=== PATIENT | female | born 1955 | race American Indian/Alaskan Native ===

== ENCOUNTER 2016-09-13 06:04 | Inpatient (IN) | payer MEDICAID ==
[2016-09-13] MEDS ORDERED: Albuterol-Ipratrop 3 mg / 0.5 (3 ml) UD ONE (06:47)
[2016-09-13] MEDS: Albuterol-Ipratrop 3 mg / 0.5 (3 ml) UD IH SCH (07:01)
--- NOTE | 2016-09-13 07:37 | C.PDOC ---
History Of Present Illness 61-year-old female, PMHx includes Asthma, Depression, Diverticulitis, Gastritis , and Hypertension, presents to the emergency department with complaints of five -day duration of a productive cough, that is associated with occasional hemoptysis. Patient has a permanent tracheostomy and no suction machine x1 year. Patient is using a straw to self-suction through hole. Initially, patient notes scant blood five days ago; States "I think I hit something" and is now with increased bright red blood output, that is described as intermittent clots , followed by thick yellow mucus. Patient is still a smoker. Time Seen by Provider: 09/13/16 07:23 Chief Complaint (Nursing): High Blood Pressure History Per: Patient History/Exam Limitations: no limitations Onset/Duration Of Symptoms: Days Current Symptoms Are (Timing): Still Present Past Medical History Reviewed: Historical Data, Nursing Documentation, Vital Signs Vital Signs: Last Vital Signs Temp 98.4 F 09/13/16 08:14 Pulse 108 H 09/13/16 08:14 Resp 20 09/13/16 08:14 BP 151/92 H 09/13/16 08:14 Pulse Ox 97 09/13/16 09:35 - Medical History PMH: Asthma, Depression, Diverticulitis, Gastritis, HTN Denies: Diabetes, Hepatitis, HIV, Seizures, Sexually Transmitted Disease Family History: States: No Known Family Hx - Social History Hx Tobacco Use: Yes Hx Alcohol Use: Yes Hx Substance Use: No - Immunization History Hx Tetanus Toxoid Vaccination: No Hx Influenza Vaccination: No Hx Pneumococcal Vaccination: No Review Of Systems Except As Marked, All Systems Reviewed And Found Negative. Constitutional: Negative for: Fever Cardiovascular: Negative for: Chest Pain, Palpitations Respiratory: Positive for: Cough, Hemoptysis, Sputum Gastrointestinal: Negative for: Vomiting Musculoskeletal: Negative for: Back Pain Skin: Negative for: Rash Neurological: Negative for: Weakness, Numbness, Headache, Dizziness Physical Exam - Physical Exam Appears: Non-toxic, No Acute Distress Skin: Warm, Dry, No Rash Head: Atraumatic, Normacephalic Eye(s): bilateral: Normal Inspection, PERRL Oral Mucosa: Moist Lips: Normal Appearing Neck: Normal ROM Chest: Symmetrical Cardiovascular: Rhythm Regular Respiratory: Normal Breath Sounds, No Accessory Muscle Use, Other (s/p nebulizer treatment) Extremity: Normal ROM Neurological/Psych: Oriented x3 ED Course And Treatment - Laboratory Results Result Diagrams: 09/13/16 09:06 09/13/16 09:06 ECG: Interpreted By Me ECG Rhythm: Sinus Rhythm ECG Interpretation: Normal Rate From EC O2 Sat by Pulse Oximetry: 97 Progress - Re-Evaluation Re-evaluation Note: 09/13/16 08:46 LABS FROM [facility] REVIEWED. PS HAS BEEN DX ANEMIA "FOR A WHILE". UNK CAUSE. DENIES SOB/JACKMAN THAT IS "ANY DIFFERENT THAN USUAL". DENIES ABD PAIN, OTHER GI BLEED HX. 09/13/16 08:58 D/W DR Erasto ANTHONY C/F PMD STATES DOES NOT ADMIT PTS W MEDICAID. ADMIT TO HOSPITAL 09/13/16 09:02 D/W DR WHITE AWARE OF ER FINDINGS WILL ADMIT. DEFER TRANSFUSION UNTIL HIS EVAL - Data Reviewed Data Reviewed: Lab, Diagnostic imaging, Old records - Continuity of Care Discussed patient case with:: Patient, Covering for PMD Disposition Counseled Patient/Family Regarding: Studies Performed, Diagnosis - Disposition Disposition: HOSPITALIZED Disposition Time: 09:03 Condition: STABLE - POA Present On Arrival: None - Clinical Impression Clinical Impression: Pneumonia, Anemia - Scribe Statement The provider has reviewed the documentation as recorded by the Daianaibama Cid All medical record entries made by the Daianaibe were at my direction and personally dictated by me. I have reviewed the chart and agree that the record accurately reflects my personal performance of the history, physical exam, medical decision making, and the department course for this patient. I have also personally directed, reviewed, and agree with the discharge instructions and disposition. Decision To Admit - Pt Status Changed To: Hospital Disposition Of: Inpatient - Admit Certification Admit to Inpatient:: After my assessment, the patient will require hospitalization for at least two midnights. This is because of the severity of symptoms shown, intensity of services needed, and/or the medical risk in this patient being treated as an outpatient. - InPatient: Physician Admission Certification: I certify that this patient requires 2 or more midnights of care for the following reason:: SEE NOTE - . Bed Request Type: Regular Admitting Physician: Nathan White Patient Diagnosis: Pneumonia, Anemia PROCEDURES - EJ/Peripheral Line Consent Obtained: verbal consent Time Out Performed: Yes Skin Cleansed in Sterile Fashion: Yes Size: 22 IV Secured and Dressing Applied: No Patient Tolerated Procedure: No complications Additional comments: UNABLE TO OBTAIN ACCESS S/P B/L EJ ATTEMPTS.
[2016-09-13] MEDS ORDERED: Azithromycin 500mg/250ML NS 500 MG/250 ML BAG IV STA (08:46)
[2016-09-13 09:12] LABS: HEMATOCRIT 24.7 % (34.0-47.0); MEAN PLATELET VOLUME 7.5 fL (7.2-11.7)
[2016-09-13 09:21] LABS: MEAN CORPUSCULAR HGB CONC 28.7 g/dL (33.0-37.0); RED CELL DISTRIBUTION WIDTH 21.7 % (11.5-14.5); WHITE BLOOD COUNT 4.1 K/uL (4.8-10.8)
[2016-09-13 09:27] LABS: CHLORIDE 108 mmol/L (98-107); POTASSIUM 3.6 mmol/L (3.6-5.2); SODIUM 144 mmol/L (132-148)
[2016-09-13 09:29] LABS: AST/SGOT 38 U/L (14-36); BILIRUBIN,TOTAL 0.7 mg/dL (0.2-1.3); CARBON DIOXIDE 21 mmol/L (22-30); GFR AFRICAN-AMERICAN > 60
[2016-09-13 09:30] LABS: ALKALINE PHOSPHATASE 84 U/L (38-126); ALT/SGPT 16 U/L (9-52); BLOOD UREA NITROGEN 5 mg/dL (7-17); CALCIUM 8.4 mg/dl (8.6-10.4); GLUCOSE,RANDOM 100 mg/dL (65-105); MEAN CELL VOLUME 70.2 fL (81.0-99.0); TOTAL PROTEIN 8.8 g/dL (6.3-8.3)
[2016-09-13 09:56] LABS: EOS # 0.1 K/uL (0.0-0.7); LYMPH # 1.7 K/uL (1.0-4.3); MONO # 0.6 K/uL (0.0-0.8)
[2016-09-13 10:28] LABS: URINE BACTERIA RARE (<OCC); URINE BILIRUBIN NEGATIVE (NEGATIVE); URINE BLOOD NEGATIVE (NEGATIVE); URINE COLOR Yellow (YELLOW); URINE GLUCOSE (UA) NORMAL (Normal); URINE KETONE NEGATIVE (NEGATIVE); URINE LEUKOCYTE ESTERASE NEG Leu/uL (Negative); URINE PROTEIN NEGATIVE (NEGATIVE); WBC URINE < 1 /hpf (0-5)
[2016-09-13] MEDS ORDERED: Moxifloxacin IV 400mg/250ml NS 400 MG/250 ML BAG IV ONE (10:45)
--- NOTE | 2016-09-13 11:13 | RAD ---
HISTORY: Pneumonia COMPARISON: No prior. TECHNIQUE: Chest PA and lateral FINDINGS: LUNGS: Diffuse increased interstitial lung markings which may represent edema and or underlying infiltrate. Additional patchy increased markings in the right lower lung zone and medial right lung base suggestive for possible infiltrate. Clinical correlation. PLEURA: As above. CARDIOVASCULAR: Normal. OSSEOUS STRUCTURES: Postsurgical changes in the spine. VISUALIZED UPPER ABDOMEN: Normal. OTHER FINDINGS: None. IMPRESSION: Diffuse increased interstitial lung markings which may represent edema and or underlying infiltrate. Additional patchy increased markings in the right lower lung zone and medial right lung base suggestive for possible infiltrate. Clinical correlation.
--- NOTE | 2016-09-13 11:16 | CP.PCM.HP ---
<Bradley Lares - Last Filed: 09/14/16 00:17> History of Present Illness - History of Present Illness History of Present Illness: CC: "Cough, bright red blood coming from trach site, weakness, green sputum coming from trach site" HPI: Pt is a 61 y/o -[place] Female with a PMHx of Hepatitis C, diverticulosis, HTN, gastritis, asthma, major depressive disorder, and severe arthritis who presented to the ED today with complaints of bloody coming from her trachesotomy site for the past 5 days. Pt reports that she has not had a suction device for the past year so she has been using a straw to remove the sputum from her throat. 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 She reports the surgery occurred at [facility] in [place]. She reports that she believes she irritated her throat with the straw and as a result she has had bright red blood being coming out. She also reports that over the past few weeks she has had thick, green sputum production and a cough that that has been getting progressively worse. She also reports that she has been feeling generally weak as well. Pt denies fever, chills, chest pain, nausea , vomiting, diarrhea, constipation. PMD: Dr. Gerard Henderson Pain Management: Dr. Felipe PMHx: Hepatitis C, diverticulosis, HTN, gastritis, asthma, major depressive disorder, and severe arthritis Home medications: Reviewed. 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 absent: Chills, Fever - EENT Eyes: absent: Change in Vision Ears: absent: Dizziness Nose/Mouth/Throat: absent: Nasal Congestion, Nasal Trauma - Cardiovascular Cardiovascular: absent: Chest Pain, Dyspnea, Leg Edema - Respiratory Respiratory: Cough, Chest Congestion. absent: Wheezing - Gastrointestinal Gastrointestinal: absent: Abdominal Pain, Nausea, Vomiting - Genitourinary Genitourinary: absent: Dysuria - Musculoskeletal Musculoskeletal: absent: Atrophy - Neurological Neurological: absent: Dizziness, Numbness - Psychiatric Psychiatric: Depression Past Patient History - Past Social History Smoking Status: Heavy Smoker > 10 Cigarettes Daily - CARDIAC Hx Hypertension: Yes - PULMONARY Hx Asthma: Yes - NEUROLOGICAL Hx Seizures: No - HEMATOLOGICAL/ONCOLOGICAL Hx Human Immunodeficiency Virus (HIV): No - GASTROINTESTINAL Hx Diverticulitis: Yes Hx Gastritis: Yes - GENITOURINARY/GYNECOLOGICAL Hx Sexually Transmitted Disorders: No - PSYCHIATRIC Hx Depression: Yes Hx Substance Use: No - SURGICAL HISTORY Other/Comment: tracheostomy - ANESTHESIA Hx Anesthesia: Yes Meds Allergies/Adverse Reactions: Allergies Allergy/AdvReac Type Severity Reaction Status Date / Time codeine Allergy RASH Verified 09/13/16 04:41 ibuprofen Allergy RASH Verified 09/13/16 04:39 Penicillins Allergy RASH Verified 09/13/16 04:41 tramadol Allergy RASH Verified 09/13/16 04:41 Physical Exam - Constitutional Appears: No Acute Distress - Head Exam Head Exam: ATRAUMATIC, NORMOCEPHALIC - Eye Exam Eye Exam: EOMI, PERRL - ENT Exam ENT Exam: Mucous Membranes Dry. absent: Mucous Membranes Moist - Neck Exam Neck exam: Positive for: Full Rom - Respiratory Exam Respiratory Exam: Decreased Breath Sounds. absent: Rhonchi, Wheezes - Cardiovascular Exam Cardiovascular Exam: Tachycardia, +S1, +S2 - GI/Abdominal Exam GI & Abdominal Exam: Normal Bowel Sounds, Soft - Extremities Exam Extremities exam: Positive for: full ROM. Negative for: pedal edema - Neurological Exam Neurological exam: Alert, Oriented x3 - Psychiatric Exam Psychiatric exam: Normal Affect, Normal Mood - Skin Skin Exam: Normal Color, Warm Results - Vital Signs Recent Vital Signs: Last Vital Signs Temp 98.4 F 09/13/16 08:14 Pulse 108 H 09/13/16 08:14 Resp 20 09/13/16 08:14 BP 151/92 H 09/13/16 08:14 Pulse Ox 97 09/13/16 10:44 - Labs Result Diagrams: 09/13/16 09:06 09/13/16 09:06 Labs: Laboratory Results - last 24 hr 09/13/16 09:57 Urine Color Yellow Urine Clarity Clear Urine pH 6.0 Ur Specific [place] 1.009 Urine Protein Negative Urine Glucose (UA) Normal Urine Ketones Negative Urine Blood Negative Urine Nitrate Negative Urine Bilirubin Negative Urine Urobilinogen 2.0 H Ur Leukocyte Esterase Neg Urine WBC (Auto) < 1 Ur Squamous Epith Cells 1 Urine Bacteria Rare Assessment & Plan - Assessment and Plan (Free Text) Assessment: Anemia: H/H: 7.1/24.7 Repeat CBC ordered NS 80 cc/hr Stool for occult blood pending Transfusion pending IV access and repeat CBC Pneumonia: Afebrile, tahcycardic at 108 No leukocytosis CXR- diffused interstitial lung markings, which may represent edema and or underlying infiltrates, patchy markngs in the right lower lung zone and medial right lung base suggestive of possible infiltrate Urine legionalla, mycoplasma, strep pneumo ag ordered Avelox 400 mg po qd IV antibiotics held due to no IV access Malfunctioned tracheostomy tube: Pulmonology, Dr. Mckeon, consulted. Help appreciated. Humidified 02 Mucinex 600 mg po tid Asthma: Duonebs 6h estephania HTN: Home meds restarted Metoprolol 25 mg po tid Norvasc 10 mg po qd HCTZ 25 mg po qd Major Depressive Disorder: Home meds restarted Lexapro 10 mg po qd Risperidone 3 mg po qd Trazodone 100 mg po qd Neuropathic Pain: Neuorontin 800 mg po bid Arthritis/Chronic Back pain: Percocet 13/325 mg po q6h prn Flexeril 10 mg po TID Prophylactic Measures: DVT: SCDs, chemical anticoagulation held due to anemia, must r/o bleed GI: Protonix 40 mg po qd <Nathan Sarabia H - Last Filed: 09/14/16 07:08> Results - Vital Signs Recent Vital Signs: Last Vital Signs Temp 98.1 F 09/14/16 00:00 Pulse 94 H 09/14/16 00:00 Resp 20 09/14/16 00:00 BP 124/79 09/14/16 00:00 Pulse Ox 99 09/14/16 00:00 - Labs Result Diagrams: 09/13/16 09:06 09/13/16 09:06 Labs: Laboratory Results - last 24 hr 09/13/16 09:57 Urine Color Yellow Urine Clarity Clear Urine pH 6.0 Ur Specific [place] 1.009 Urine Protein Negative Urine Glucose (UA) Normal Urine Ketones Negative Urine Blood Negative Urine Nitrate Negative Urine Bilirubin Negative Urine Urobilinogen 2.0 H Ur Leukocyte Esterase Neg Urine WBC (Auto) < 1 Ur Squamous Epith Cells 1 Urine Bacteria Rare Attending/Attestation - Attestation I have personally seen and examined this patient.: Yes I have fully participated in the care of the patient.: Yes I have reviewed all pertinent clinical information: Yes Notes (Text): Medical Attending: Patient was seen and examined by me. Agree with the above note by the resident. The patient has a history of a trach for several years now and as described above in the resident note, has been trying to use a straw to clear out the secretion. She reports having bleeding when she does this. She reports she does not have the trach in the site at this time. Also of note is she reports coughing and change in color sputum. XRAY may suggest pneumonia, we are ordering a CT of the chest and abdomen and pelvis. There is a PCN allergy, will use Avelox. Because of the suspect pneumonia as well as difficulty with the trach will get pulmonology evaluation The patient has a low Hgb as well. Will type screen, transfuse, check feccolut. She also is on medication for depression and anxiety as well and will continue these and if need to consult psychiatry thank you Nathan Sarabia 09/14/16 07:05
[2016-09-13] MEDS ORDERED: ACETAMINOPHEN PO SCH (12:00)
[2016-09-13] MEDS ORDERED: OXYCODONE HCL PO SCH (12:00)
[2016-09-13] MEDS ORDERED: Acetaminophen-Codeine 300/30 mg Tab PO SCH (12:00)
[2016-09-13] MEDS: guaiFENesin 600 mg ER Tab PO SCH ×2 (13:03→18:57)
[2016-09-13] MEDS: Pantoprazole 40 mg EC Tab PO SCH (14:05)
[2016-09-13 14:39] VITALS: RESP 20
[2016-09-13] MEDS ORDERED: Acetaminophen-Codeine 300/30 mg Tab PO PRN (14:45)
[2016-09-13] MEDS ORDERED: Oxycodone/Acetaminophen 5/325 mg Tab PO PRN (14:45)
[2016-09-13] MEDS: Albuterol-Ipratrop 3 mg / 0.5 (3 ml) UD INH SCH ×2 (14:53→20:04)
[2016-09-13] MEDS: Sodium Chloride 0.9% 1,000 ML IV SCH (14:53)
--- NOTE | 2016-09-13 20:27 | CT ---
EXAM: CT Abdomen and Pelvis Without Intravenous Contrast CLINICAL HISTORY: 61 years old, female; Pain; Abdominal pain and other: Pneumonia and R/O bleed; Chest pain; Additional info: Pneumonia, R/O bleed. Tracheostomy TECHNIQUE: Axial computed tomography images of the abdomen and pelvis without intravenous contrast. This CT exam was performed using one or more of the following dose reduction techniques: automated exposure control, adjustment of the mA and/or kV according to patient size, and/or use of iterative reconstruction technique. COMPARISON: There are no prior studies for comparison. FINDINGS: Lower thorax: Refer to bowel report for chest findings ABDOMEN: Liver: unremarkable Gallbladder and bile ducts: Gallbladder is partially distended. Common bile duct is mildly dilated. Pancreas: Pancreas is mildly atrophic. Spleen: unremarkable Adrenals: unremarkable Kidneys and ureters: unremarkable Stomach and bowel: Stomach is partially distended with an air-fluid level. Rotation is normal. Small bowel is mildly distended with scattered air-fluid levels. There is no obstruction. Terminal ileum is unremarkable. Appendix is unremarkable. Colon is incompletely distended which limits evaluation.There is diverticulosis. Appendix: See stomach and bowel PELVIS: Bladder: unremarkable Reproductive: Uterus is absent. There are no adnexal masses. ABDOMEN and PELVIS: Intraperitoneal space: There is no free air or free fluid. Bones/joints: There are degenerative changes in the osseus structures. Soft tissues: There is calcified mass in the abdominal wall. Vasculature: There are vascular calcifications. There are calcified phleboliths. Lymph nodes: There is shotty para-aortic adenopathy. IMPRESSION: No acute solid visceral or bowel abnormality, no CT findings of appendicitis or diverticulitis Additional findings as described above. EXAM: CT Chest Without Intravenous Contrast CLINICAL HISTORY: 61 years old, female; Pain; Abdominal pain and other: Pneumonia and R/O bleed; Chest pain; Additional info: Pneumonia, R/O bleed. Tracheostomy TECHNIQUE: Axial computed tomography images of the chest without intravenous contrast. This CT exam was performed using one or more of the following dose reduction techniques: automated exposure control, adjustment of the mA and/or kV according to patient size, and/or use of iterative reconstruction technique. Coronal and sagittal reformatted images were created and reviewed. EXAM DATE/TIME: 09/13/2016 6:27 PM COMPARISON: There are no prior studies for comparison. FINDINGS: Artifacts: Streak artifact degrades image quality. Motion artifact degrades image quality. Tubes, lines and devices: A tracheostomy is in place. Cannula tip is in the upper thoracic trachea. Lungs and pleural spaces: Trachea and main bronchi are patent. There is a small amount of debris in the left main bronchus. There is minimal scarring at the lung apices. There is dependent atelectasis bilaterally There is no lobar or segmental consolidation. There is linear scarring at the right base with an associated nodularity. There is more extensive scarring at the left base with focal masslike pleural thickening and tenting. There is less extensive pleural thickening at the right base There are no pleural effusions. There are small cysts at the left base. Heart and vasculature: The heart is mildly enlarged. There are coronary calcifications.Aorta and main pulmonary artery are normal in caliber.There are vascular calcifications. Mediastinum: There is shotty mediastinal nodes. Tania are not optimally evaluated without contrast material. The esophagus is not optimally evaluated. Thyroid: Thyroid is not optimally demonstrated. Bones/joints: There are postsurgical changes of lower cervical fusion. Soft tissues: unremarkable Upper abdomen: Refer to prior report for abdominal findings IMPRESSION: Mild cardiomegaly and atherosclerotic disease; atelectasis or scarring at the lung bases, no focal consolidation; tracheostomy with minimal debris in the left main bronchus Additional findings as described above.
[2016-09-14] MEDS: Sodium Chloride 0.9% 1,000 ML IV SCH (00:02)
[2016-09-14] MEDS: Albuterol-Ipratrop 3 mg / 0.5 (3 ml) UD INH SCH ×5 (01:28→19:16)
--- NOTE | 2016-09-14 07:55 | CP.PCM.CON ---
History of Present Illness - History of Present Illness History of Present Illness: cough with discolored sputum, occ. hemoptysis with trauma due to suctioning with straw, rather than suction cath. active smoker ct chest reviewed, no endobronchial lesions, chronic pleural thickening, currently improved with no respiratory distress, no sob Review of Systems - Respiratory Respiratory: Cough, Change in Mucous Color Past Patient History - Past Social History Smoking Status: Heavy Smoker > 10 Cigarettes Daily - CARDIAC Hx Hypertension: Yes - PULMONARY Hx Asthma: Yes - NEUROLOGICAL Hx Seizures: No - HEMATOLOGICAL/ONCOLOGICAL Hx Human Immunodeficiency Virus (HIV): No - MUSCULOSKELETAL/RHEUMATOLOGICAL Hx Falls: No - GASTROINTESTINAL Hx Diverticulitis: Yes Hx Gastritis: Yes - GENITOURINARY/GYNECOLOGICAL Hx Sexually Transmitted Disorders: No - PSYCHIATRIC Hx Depression: Yes Hx Substance Use: No - SURGICAL HISTORY Other/Comment: tracheostomy - ANESTHESIA Hx Anesthesia: Yes Meds Allergies/Adverse Reactions: Allergies Allergy/AdvReac Type Severity Reaction Status Date / Time codeine Allergy RASH Verified 09/13/16 04:41 ibuprofen Allergy RASH Verified 09/13/16 04:39 Penicillins Allergy RASH Verified 09/13/16 04:41 tramadol Allergy RASH Verified 09/13/16 04:41 - Medications Medications: Current Medications Acetaminophen/Codeine Phosphate (Tylenol/Codeine 300 Mg/30 Mg) 1 ea PO Q6H PRN Albuterol/Ipratropium (Duoneb 3 Mg/0.5 Mg (3 Ml) Ud) 3 ml INH RQ6 [facility] Last Admin: 09/14/16 07:43 Dose: 3 ml Amlodipine Besylate (Norvasc) 10 mg PO DAILY [facility] Cyclobenzaprine HCl (Flexeril) 10 mg PO TID [facility] Last Admin: 09/13/16 18:57 Dose: 10 mg Diphenhydramine HCl (Benadryl) 25 mg PO Q6H PRN PRN Reason: Itching / Pruritus Escitalopram Oxalate (Lexapro) 10 mg PO DAILY [facility] Last Admin: 09/13/16 13:03 Dose: 10 mg Gabapentin (Neurontin) 800 mg PO TID [facility] Last Admin: 09/13/16 19:03 Dose: 800 mg Guaifenesin (Mucinex La) 600 mg PO BID [facility] Last Admin: 09/13/16 18:57 Dose: 600 mg Hydrochlorothiazide (Hydrodiuril) 25 mg PO DAILY [facility] Hydroxyzine HCl (Atarax) 25 mg PO DAILY [facility] Last Admin: 09/13/16 13:00 Dose: Not Given Metoprolol Succinate (Toprol Xl) 50 mg PO DAILY [facility] Moxifloxacin HCl (Avelox) 400 mg PO DAILY [facility] Multivitamins/Minerals (Therapeutic-M Tab) 1 tab PO DAILY [facility] Oxycodone/Acetaminophen (Percocet 5/325 Mg Tab) 2 tab PO Q6H PRN Pantoprazole Sodium (Protonix Ec Tab) 40 mg PO DAILY [facility] Last Admin: 09/13/16 14:05 Dose: 40 mg Risperidone (Risperdal Tab) 3 mg PO DAILY [facility] Last Admin: 09/13/16 13:03 Dose: 3 mg Sumatriptan Succinate (Imitrex Tab) 50 mg PO DAILY PRN Trazodone HCl (Desyrel) 100 mg PO DAILY [facility] Physical Exam - Constitutional Appears: No Acute Distress - Head Exam Head Exam: ATRAUMATIC, NORMOCEPHALIC - Eye Exam Eye Exam: Normal appearance - ENT Exam ENT Exam: Mucous Membranes Moist - Neck Exam Neck exam: Positive for: Full Rom - Respiratory Exam Respiratory Exam: Decreased Breath Sounds - Cardiovascular Exam Cardiovascular Exam: +S1, +S2 - GI/Abdominal Exam GI & Abdominal Exam: Normal Bowel Sounds - Rectal Exam Rectal Exam: Deferred - Extremities Exam Extremities exam: Positive for: normal inspection - Neurological Exam Neurological exam: Alert, Oriented x3 - Psychiatric Exam Psychiatric exam: Normal Affect, Normal Mood - Skin Skin Exam: Intact Results - Vital Signs Recent Vital Signs: Last Vital Signs Temp 98.1 F 09/14/16 00:00 Pulse 94 H 09/14/16 00:00 Resp 20 09/14/16 00:00 BP 124/79 09/14/16 00:00 Pulse Ox 99 09/14/16 00:00 - Labs Result Diagrams: 09/13/16 09:06 09/13/16 09:06 Labs: Laboratory Results - last 24 hr 09/13/16 09:57 Urine Color Yellow Urine Clarity Clear Urine pH 6.0 Ur Specific [place] 1.009 Urine Protein Negative Urine Glucose (UA) Normal Urine Ketones Negative Urine Blood Negative Urine Nitrate Negative Urine Bilirubin Negative Urine Urobilinogen 2.0 H Ur Leukocyte Esterase Neg Urine WBC (Auto) < 1 Ur Squamous Epith Cells 1 Urine Bacteria Rare Assessment & Plan (1) History of hemoptysis Status: Acute Comment: due to mechanical trauma (2) Bronchitis Status: Acute (3) COPD (chronic obstructive pulmonary disease) Status: Chronic Comment: active smoker since age 9
[2016-09-14] MEDS ORDERED: Azithromycin 500 MG in Sodium Chloride 0.9% 250 ML IVPB SCH (10:00)
[2016-09-14] MEDS: Pantoprazole 40 mg EC Tab PO SCH (10:33)
[2016-09-14] MEDS: Multivitamin With Minerals Tab PO SCH (10:33)
[2016-09-14] MEDS: Metoprolol Succinate 50 mg XL Tab PO SCH (10:33)
[2016-09-14] MEDS ORDERED: Moxifloxacin IV 400mg/250ml NS 400 MG/250 ML BAG IVPB SCH (11:30)
[2016-09-14] MEDS: guaiFENesin 600 mg ER Tab PO SCH ×2 (11:54→17:26)
--- NOTE | 2016-09-14 12:04 | CP.PCM.PN ---
<Louisa Vivar - Last Filed: 09/14/16 12:00> Subjective - Date & Time of Evaluation Date of Evaluation: 09/14/16 Time of Evaluation: 09:00 - Subjective Subjective: Medicine Note for Dr. Sarabia, Patient was seen and examined at bedside. Patient reports her breathing is improving with the breathing treatments. Patient consented for a PICC line to allow for blood transfusion for her history of Chronic Anemia. Denied fever, chills, headache, chest pain, SOB, abdominal pain, or urinary symptoms. Objective - Vital Signs/Intake and Output Vital Signs (last 24 hours): Temp Pulse Resp BP Pulse Ox 97.8 F 90 20 151/80 H 96 09/14/16 08:10 09/14/16 08:10 09/14/16 08:10 09/14/16 08:10 09/14/16 08:10 Intake and Output: 09/14/16 09/14/16 06:59 18:59 Intake Total 300 Balance 300 - Medications Medications: Current Medications Acetaminophen/Codeine Phosphate (Tylenol/Codeine 300 Mg/30 Mg) 1 ea PO Q6H PRN Acetylcysteine (Acetylcysteine 20%) 4 ml INH RQ6 [facility] Albuterol/Ipratropium (Duoneb 3 Mg/0.5 Mg (3 Ml) Ud) 3 ml INH RQ6 [facility] Last Admin: 09/14/16 09:55 Dose: Not Given Amlodipine Besylate (Norvasc) 10 mg PO DAILY [facility] Last Admin: 09/14/16 10:33 Dose: 10 mg Cyclobenzaprine HCl (Flexeril) 10 mg PO TID [facility] Last Admin: 09/14/16 10:33 Dose: 10 mg Diphenhydramine HCl (Benadryl) 25 mg PO Q6H PRN PRN Reason: Itching / Pruritus Escitalopram Oxalate (Lexapro) 10 mg PO DAILY [facility] Last Admin: 09/14/16 10:33 Dose: 10 mg Gabapentin (Neurontin) 800 mg PO TID [facility] Last Admin: 09/13/16 19:03 Dose: 800 mg Guaifenesin (Mucinex La) 600 mg PO BID [facility] Last Admin: 09/14/16 11:54 Dose: 600 mg Hydrochlorothiazide (Hydrodiuril) 25 mg PO DAILY [facility] Last Admin: 09/14/16 10:33 Dose: 25 mg Hydroxyzine HCl (Atarax) 25 mg PO DAILY [facility] Last Admin: 09/13/16 13:00 Dose: Not Given Metoprolol Succinate (Toprol Xl) 50 mg PO DAILY [facility] Last Admin: 09/14/16 10:33 Dose: 50 mg Moxifloxacin HCl (Avelox) 400 mg PO DAILY [facility] Last Admin: 09/14/16 10:33 Dose: 400 mg Multivitamins/Minerals (Therapeutic-M Tab) 1 tab PO DAILY [facility] Last Admin: 09/14/16 10:33 Dose: 1 tab Oxycodone/Acetaminophen (Percocet 5/325 Mg Tab) 2 tab PO Q6H PRN Pantoprazole Sodium (Protonix Ec Tab) 40 mg PO DAILY [facility] Last Admin: 09/14/16 10:33 Dose: 40 mg Risperidone (Risperdal Tab) 3 mg PO DAILY [facility] Last Admin: 09/14/16 11:55 Dose: 3 mg Sumatriptan Succinate (Imitrex Tab) 50 mg PO DAILY PRN Trazodone HCl (Desyrel) 100 mg PO DAILY [facility] - Constitutional Appears: No Acute Distress - Head Exam Head Exam: NORMAL INSPECTION, NORMOCEPHALIC - Neck Exam Additional comments: tracheosteomy in place - Respiratory Exam Respiratory Exam: Decreased Breath Sounds - Cardiovascular Exam Cardiovascular Exam: Tachycardia - GI/Abdominal Exam GI & Abdominal Exam: Soft, Normal Bowel Sounds. absent: Tenderness - Extremities Exam Extremities Exam: Normal Inspection. absent: Pedal Edema, Tenderness - Neurological Exam Neurological Exam: Alert, Awake, Oriented x3 Assessment and Plan - Assessment and Plan (Free Text) Plan: Anemia: H/H: 7.1/24.7 Stool for occult blood pending PICC line in place: will be transfused 2 units, follow up CBC Pneumonia: Afebrile, tachycardiac No leukocytosis CXR- diffused interstitial lung markings, which may represent edema and or underlying infiltrates, patchy markngs in the right lower lung zone and medial right lung base suggestive of possible infiltrate Urine legionalla, mycoplasma, strep pneumo ag ordered Avelox 400 mg po qd Malfunctioned tracheostomy tube: Pulmonology, Dr. Mckeon, consulted. Help appreciated - patient requires home neb, home suction, speech therapy for speaking valve. Humidified 02 Mucinex 600 mg po tid, Mucomyst Q6H Asthma: Duonebs 6h estephania Mucinex 600 mg po tid, Mucomyst Q6H HTN: Home meds restarted Metoprolol 25 mg po tid Norvasc 10 mg po qd HCTZ 25 mg po qd Major Depressive Disorder: Home meds restarted Lexapro 10 mg po qd Risperidone 3 mg po qd Trazodone 100 mg po qd Neuropathic Pain: Neuorontin 800 mg po bid Arthritis/Chronic Back pain: Percocet 13/325 mg po q6h prn Flexeril 10 mg po TID Prophylactic Measures: DVT: SCDs, chemical anticoagulation held due to anemia, must r/o bleed GI: Protonix 40 mg po qd Heart Healthy Diet DW Dr. Sarabia, Cb KENDRICK, PGY-1 <Nathan Sarabia H - Last Filed: 09/14/16 13:44> Objective - Vital Signs/Intake and Output Vital Signs (last 24 hours): Temp Pulse Resp BP Pulse Ox 97.8 F 90 20 151/80 H 96 09/14/16 08:10 09/14/16 08:10 09/14/16 08:10 09/14/16 08:10 09/14/16 08:10 Intake and Output: 09/14/16 09/14/16 06:59 18:59 Intake Total 300 Balance 300 - Medications Medications: Current Medications Acetaminophen/Codeine Phosphate (Tylenol/Codeine 300 Mg/30 Mg) 1 ea PO Q6H PRN Acetylcysteine (Acetylcysteine 20%) 4 ml INH RQ6 [facility] Last Admin: 09/14/16 13:36 Dose: 4 ml Albuterol/Ipratropium (Duoneb 3 Mg/0.5 Mg (3 Ml) Ud) 3 ml INH RQ6 [facility] Last Admin: 09/14/16 13:36 Dose: 3 ml Amlodipine Besylate (Norvasc) 10 mg PO DAILY [facility] Last Admin: 09/14/16 10:33 Dose: 10 mg Cyclobenzaprine HCl (Flexeril) 10 mg PO TID [facility] Last Admin: 09/14/16 10:33 Dose: 10 mg Diphenhydramine HCl (Benadryl) 25 mg PO Q6H PRN PRN Reason: Itching / Pruritus Escitalopram Oxalate (Lexapro) 10 mg PO DAILY [facility] Last Admin: 09/14/16 10:33 Dose: 10 mg Gabapentin (Neurontin) 800 mg PO TID [facility] Last Admin: 09/14/16 12:05 Dose: 800 mg Guaifenesin (Mucinex La) 600 mg PO BID [facility] Last Admin: 09/14/16 11:54 Dose: 600 mg Hydrochlorothiazide (Hydrodiuril) 25 mg PO DAILY [facility] Last Admin: 09/14/16 10:33 Dose: 25 mg Hydroxyzine HCl (Atarax) 25 mg PO DAILY [facility] Last Admin: 09/14/16 12:05 Dose: 25 mg Metoprolol Succinate (Toprol Xl) 50 mg PO DAILY [facility] Last Admin: 09/14/16 10:33 Dose: 50 mg Moxifloxacin HCl (Avelox) 400 mg PO DAILY [facility] Last Admin: 09/14/16 10:33 Dose: 400 mg Multivitamins/Minerals (Therapeutic-M Tab) 1 tab PO DAILY [facility] Last Admin: 09/14/16 10:33 Dose: 1 tab Oxycodone/Acetaminophen (Percocet 5/325 Mg Tab) 2 tab PO Q6H [facility] Last Admin: 09/14/16 12:09 Dose: 2 tab Pantoprazole Sodium (Protonix Ec Tab) 40 mg PO DAILY [facility] Last Admin: 09/14/16 10:33 Dose: 40 mg Risperidone (Risperdal Tab) 3 mg PO DAILY [facility] Last Admin: 09/14/16 11:55 Dose: 3 mg Sumatriptan Succinate (Imitrex Tab) 50 mg PO DAILY PRN Trazodone HCl (Desyrel) 100 mg PO DAILY [facility] Last Admin: 09/14/16 12:06 Dose: 100 mg Attending/Attestation - Attestation I have personally seen and examined this patient.: Yes I have fully participated in the care of the patient.: Yes I have reviewed all pertinent clinical information, including history, physical exam and plan: Yes Notes (Text): 09/14/16 13:43 Medical Attending: Patient was seen and examined by me. Agree with the above note by the resident. Today attempting to get a PICC placed and later will need PRBCs and change back to IV abx. Pending cultures at this time. She had last night CT scan of the chest /abd /pelvis done as well thank you Nathan Sarabia
[2016-09-14] MEDS: Oxycodone/Acetaminophen 5/325 mg Tab PO PRN ×2 (12:09→22:21)
[2016-09-14] MEDS: Acetylcysteine 20% Inhal Soln (4ml) INH SCH ×2 (13:36→19:16)
--- NOTE | 2016-09-14 13:57 | RAD ---
PROCEDURE: CHEST RADIOGRAPH, 1 VIEW HISTORY: verify right PICC COMPARISON: None available. FINDINGS: LUNGS: Right PICC line with tip extending to the mid to distal right SVC. No evidence of postprocedure pneumothorax. Mild to moderate venous congestion. Patchy left basilar airspace opacity with trace left pleural effusion. Tracheostomy tube in place. PLEURA: As above. CARDIOVASCULAR: Normal. OSSEOUS STRUCTURES: No significant abnormalities. VISUALIZED UPPER ABDOMEN: Normal. OTHER FINDINGS: None. IMPRESSION: Right PICC line with tip extending to the mid to distal right SVC. No evidence of postprocedure pneumothorax. Mild to moderate venous congestion. Patchy left basilar airspace opacity with trace left pleural effusion. Tracheostomy tube in place.
[2016-09-15] MEDS: Acetylcysteine 20% Inhal Soln (4ml) INH SCH ×4 (01:06→19:29)
[2016-09-15] MEDS: Albuterol-Ipratrop 3 mg / 0.5 (3 ml) UD INH SCH ×4 (01:06→19:29)
[2016-09-15] MEDS: Oxycodone/Acetaminophen 5/325 mg Tab PO PRN ×3 (05:15→21:35)
[2016-09-15 07:23] LABS: HEMATOCRIT 30.3 % (34.0-47.0); MEAN CORPUSCULAR HEMOGLOBIN 22.8 pg (27.0-31.0); MEAN CORPUSCULAR HGB CONC 30.5 g/dL (33.0-37.0); MEAN PLATELET VOLUME 7.7 fL (7.2-11.7); RED CELL DISTRIBUTION WIDTH 24.4 % (11.5-14.5)
[2016-09-15 07:36] LABS: MEAN CELL VOLUME 74.7 fL (81.0-99.0)
[2016-09-15 07:40] LABS: CHLORIDE 105 mmol/L (98-107); POTASSIUM 3.7 mmol/L (3.6-5.2); SODIUM 139 mmol/L (132-148)
[2016-09-15 07:42] LABS: AST/SGOT 28 U/L (14-36); BILIRUBIN,TOTAL 1.3 mg/dL (0.2-1.3); CARBON DIOXIDE 24 mmol/L (22-30); GFR AFRICAN-AMERICAN > 60
[2016-09-15 07:43] LABS: ALKALINE PHOSPHATASE 86 U/L (38-126); ALT/SGPT 13 U/L (9-52); BLOOD UREA NITROGEN 9 mg/dL (7-17); CALCIUM 8.8 mg/dl (8.6-10.4); GLUCOSE,RANDOM 88 mg/dL (65-105); MAGNESIUM 2.1 mg/dL (1.6-2.3); PHOSPHOROUS 3.3 mg/dL (2.5-4.5); TOTAL PROTEIN 7.8 g/dL (6.3-8.3)
[2016-09-15] MEDS: Metoprolol Succinate 50 mg XL Tab PO SCH (10:23)
[2016-09-15] MEDS: Pantoprazole 40 mg EC Tab PO SCH (10:25)
[2016-09-15] MEDS: Multivitamin With Minerals Tab PO SCH (10:26)
[2016-09-15] MEDS: guaiFENesin 600 mg ER Tab PO SCH ×2 (10:26→18:33)
[2016-09-15] MEDS: Moxifloxacin IV 400mg/250ml NS 400 MG/250 ML BAG IVPB SCH (10:27)
[2016-09-15 10:28] LABS: EOS # 0.2 K/uL (0.0-0.7); LYMPH # 3.6 K/uL (1.0-4.3); MONO # 0.5 K/uL (0.0-0.8)
--- NOTE | 2016-09-15 13:34 | CP.PCM.PN ---
<Louisa Vivar - Last Filed: 09/15/16 16:09> Subjective - Date & Time of Evaluation Date of Evaluation: 09/15/16 Time of Evaluation: 10:00 - Subjective Subjective: Medicine Note for Dr. Galvin, Patient was seen and examined at bedside. Patient reports her breathing is improving with the breathing treatments. She stated she feels a little gassy but has been having normal bowel movements. Denied fever, chills, headache, chest pain, SOB, abdominal pain, or urinary symptoms. Objective - Vital Signs/Intake and Output Vital Signs (last 24 hours): Temp Pulse Resp BP Pulse Ox 97.9 F 82 20 149/90 98 09/15/16 07:39 09/15/16 07:39 09/15/16 07:39 09/15/16 07:39 09/15/16 07:39 Intake and Output: 09/15/16 09/15/16 06:59 18:59 Intake Total 1575 325 Balance 1575 325 - Medications Medications: Current Medications Acetylcysteine (Acetylcysteine 20%) 4 ml INH RQ6 [facility] Last Admin: 09/15/16 07:40 Dose: 4 ml Albuterol/Ipratropium (Duoneb 3 Mg/0.5 Mg (3 Ml) Ud) 3 ml INH RQ6 [facility] Last Admin: 09/15/16 07:40 Dose: 3 ml Amlodipine Besylate (Norvasc) 10 mg PO DAILY [facility] Last Admin: 09/15/16 10:26 Dose: 10 mg Cyclobenzaprine HCl (Flexeril) 10 mg PO TID [facility] Last Admin: 09/15/16 10:25 Dose: 10 mg Diphenhydramine HCl (Benadryl) 25 mg PO Q6H PRN PRN Reason: Itching / Pruritus Escitalopram Oxalate (Lexapro) 10 mg PO DAILY [facility] Last Admin: 09/15/16 10:25 Dose: 10 mg Gabapentin (Neurontin) 800 mg PO TID [facility] Last Admin: 09/15/16 10:25 Dose: 800 mg Guaifenesin (Mucinex La) 600 mg PO BID [facility] Last Admin: 09/15/16 10:26 Dose: 600 mg Hydrochlorothiazide (Hydrodiuril) 25 mg PO DAILY [facility] Last Admin: 09/15/16 10:23 Dose: 25 mg Hydroxyzine HCl (Atarax) 25 mg PO DAILY [facility] Last Admin: 09/15/16 10:25 Dose: 25 mg Moxifloxacin HCl (Avelox Iv 400mg/250ml Ns) 400 mg in 250 mls @ 167 mls/hr IVPB Q24H [facility] Last Admin: 09/15/16 10:27 Dose: 167 mls/hr Metoprolol Succinate (Toprol Xl) 50 mg PO DAILY [facility] Last Admin: 09/15/16 10:23 Dose: 50 mg Multivitamins/Minerals (Therapeutic-M Tab) 1 tab PO DAILY [facility] Last Admin: 09/15/16 10:26 Dose: 1 tab Oxycodone/Acetaminophen (Percocet 5/325 Mg Tab) 2 tab PO Q6H PRN Last Admin: 09/15/16 13:05 Dose: 2 tab Pantoprazole Sodium (Protonix Ec Tab) 40 mg PO DAILY [facility] Last Admin: 09/15/16 10:25 Dose: 40 mg Risperidone (Risperdal Tab) 3 mg PO [facility] Sumatriptan Succinate (Imitrex Tab) 50 mg PO DAILY PRN Trazodone HCl (Desyrel) 100 mg PO HS [facility] - Labs Labs: 09/15/16 07:08 09/15/16 07:08 - Constitutional Appears: No Acute Distress - Head Exam Head Exam: NORMAL INSPECTION, NORMOCEPHALIC - Neck Exam Additional comments: Tracheostomy in place - Respiratory Exam Respiratory Exam: Clear to Ausculation Bilateral, NORMAL BREATHING PATTERN. absent: Decreased Breath Sounds, Wheezes - Cardiovascular Exam Cardiovascular Exam: REGULAR RHYTHM, RRR, +S1, +S2 - GI/Abdominal Exam GI & Abdominal Exam: Soft, Normal Bowel Sounds. absent: Distended, Tenderness - Extremities Exam Extremities Exam: Normal Inspection. absent: Pedal Edema, Tenderness - Neurological Exam Neurological Exam: Alert, Awake, Oriented x3 - Skin Skin Exam: Dry, Intact, Normal Color, Warm Assessment and Plan - Assessment and Plan (Free Text) Plan: Anemia: H/H: 7.1/24.7 Stool for occult blood pending PICC line in place: transfused 2 units Repeat CBC: 9.2/30.3 Pneumonia: Afebrile, tachycardiac No leukocytosis CXR- diffused interstitial lung markings, which may represent edema and or underlying infiltrates, patchy markngs in the right lower lung zone and medial right lung base suggestive of possible infiltrate Urine legionalla, mycoplasma, strep pneumo ag ordered Avelox 400 mg po qd (day 2) switched to IV today due to PICC access Malfunctioned tracheostomy tube: Pulmonology, Dr. Mckeon, consulted. Help appreciated - patient requires home neb, home suction, speech therapy for speaking valve. Humidified 02 Mucinex 600 mg po tid, Mucomyst Q6H Asthma: Duonebs 6h estephania Mucinex 600 mg po tid, Mucomyst Q6H HTN: Home meds restarted Metoprolol 25 mg po tid Norvasc 10 mg po qd HCTZ 25 mg po qd Major Depressive Disorder: Home meds restarted Lexapro 10 mg po qd Risperidone 3 mg po qd Trazodone 100 mg po qd Neuropathic Pain: Neuorontin 800 mg po bid Arthritis/Chronic Back pain: Percocet 13/325 mg po q6h prn Flexeril 10 mg po TID Prophylactic Measures: DVT: SCDs, chemical anticoagulation held due to anemia, must r/o bleed GI: Protonix 40 mg po qd Heart Healthy Diet DW Cb Peacock DO, PGY-1 <Awais Galvin - Last Filed: 10/23/16 17:20> Objective - Vital Signs/Intake and Output Vital Signs (last 24 hours): Temp Pulse Resp BP Pulse Ox 98.2 F 85 20 120/80 99 09/21/16 08:00 09/21/16 08:00 09/21/16 08:00 09/21/16 08:00 09/21/16 08:00 - Labs Labs: 09/21/16 07:07 09/21/16 07:07 Attending/Attestation - Attestation I have personally seen and examined this patient.: Yes I have fully participated in the care of the patient.: Yes I have reviewed all pertinent clinical information, including history, physical exam and plan: Yes Notes (Text): Anemia: workup in progress H/H: 7.1/24.7 Stool for occult blood pending PICC line in place: transfused 2 units Repeat CBC: 9.2/30.3 Pneumonia: Afebrile, tachycardiac No leukocytosis CXR- diffused interstitial lung markings, which may represent edema and or underlying infiltrates, patchy markngs in the right lower lung zone and medial right lung base suggestive of possible infiltrate Urine legionalla, mycoplasma, strep pneumo ag ordered Avelox 400 mg po qd (day 2) switched to IV today due to PICC access Malfunctioned tracheostomy tube: Pulmonology, Dr. Mckeon, consulted. Help appreciated - patient requires home neb, home suction, speech therapy for speaking valve. Humidified 02 Mucinex 600 mg po tid, Mucomyst Q
[2016-09-15] MEDS: Simethicone 80 mg Chewtab PO SCH (21:30)
[2016-09-16] MEDS: Albuterol-Ipratrop 3 mg / 0.5 (3 ml) UD INH SCH ×4 (01:42→19:45)
[2016-09-16] MEDS: Acetylcysteine 20% Inhal Soln (4ml) INH SCH ×4 (01:42→19:45)
[2016-09-16] MEDS: Oxycodone/Acetaminophen 5/325 mg Tab PO PRN ×3 (05:58→22:09)
[2016-09-16 07:20] LABS: CHLORIDE 103 mmol/L (98-107); POTASSIUM 3.5 mmol/L (3.6-5.2); SODIUM 138 mmol/L (132-148)
[2016-09-16 07:22] LABS: GFR AFRICAN-AMERICAN > 60
[2016-09-16 07:23] LABS: ALKALINE PHOSPHATASE 91 U/L (38-126); ALT/SGPT 12 U/L (9-52); AST/SGOT 28 U/L (14-36); BILIRUBIN,TOTAL 0.8 mg/dL (0.2-1.3); BLOOD UREA NITROGEN 10 mg/dL (7-17); CALCIUM 9.1 mg/dl (8.6-10.4); CARBON DIOXIDE 26 mmol/L (22-30); GLUCOSE,RANDOM 84 mg/dL (65-105); PHOSPHOROUS 3.9 mg/dL (2.5-4.5); TOTAL PROTEIN 8.1 g/dL (6.3-8.3)
[2016-09-16 07:24] LABS: MAGNESIUM 2.1 mg/dL (1.6-2.3)
[2016-09-16 07:49] LABS: HEMATOCRIT 30.2 % (34.0-47.0); MEAN CELL VOLUME 74.3 fL (81.0-99.0); MEAN CORPUSCULAR HEMOGLOBIN 22.9 pg (27.0-31.0); MEAN CORPUSCULAR HGB CONC 30.8 g/dL (33.0-37.0); MEAN PLATELET VOLUME 7.9 fL (7.2-11.7); RED CELL DISTRIBUTION WIDTH 23.5 % (11.5-14.5); WHITE BLOOD COUNT 6.4 K/uL (4.8-10.8)
[2016-09-16] MEDS ORDERED: Potassium Chloride 20 mEq ER Tab PO ONE (10:00)
[2016-09-16 10:12] LABS: EOS # 0.2 K/uL (0.0-0.7); LYMPH # 3.2 K/uL (1.0-4.3); MONO # 0.3 K/uL (0.0-0.8)
[2016-09-16] MEDS: Multivitamin With Minerals Tab PO SCH (11:16)
[2016-09-16] MEDS: Pantoprazole 40 mg EC Tab PO SCH (11:16)
[2016-09-16] MEDS: Simethicone 80 mg Chewtab PO SCH ×3 (11:17→19:00)
[2016-09-16] MEDS: Moxifloxacin IV 400mg/250ml NS 400 MG/250 ML BAG IVPB SCH (11:21)
[2016-09-16] MEDS: guaiFENesin 600 mg ER Tab PO SCH ×2 (12:11→19:00)
[2016-09-16] MEDS: Metoprolol Succinate 50 mg XL Tab PO SCH (12:11)
[2016-09-16] MEDS: Potassium Chloride 20 mEq ER Tab PO SCH (12:15)
--- NOTE | 2016-09-16 15:01 | RAD ---
HISTORY: SBO COMPARISON: No prior. FINDINGS: BOWEL: Mild constipation is noted. SBO. BONES: Normal. OTHER FINDINGS: None. IMPRESSION: Mild constipation.
[2016-09-16] MEDS ORDERED: Magnesium Hydroxide Susp 30 ml UD PO ONE (15:11)
[2016-09-16 16:13] LABS: LEGIONELLA AG URINE NEGATIVE (NEGATIVE)
--- NOTE | 2016-09-16 16:31 | CP.PCM.DIS ---
<Louisa Vivar - Last Filed: 09/16/16 16:29> Provider - Provider Date of Admission: 09/13/16 09:08 Attending physician: Nathan Sarabia DO Time Spent in preparation of Discharge (in minutes): 45 Hospital Course - Lab Results Lab Results: Micro Results 09/13/16 10:00 Blood Blood Culture - Preliminary NO GROWTH AFTER 3 DAYS Most Recent Lab Values WBC 6.4 K/uL (4.8-10.8) 09/16/16 06:59 RBC 4.06 Mil/uL (3.80-5.20) 09/16/16 06:59 Hgb 9.3 g/dL (11.0-16.0) L 09/16/16 06:59 Hct 30.2 % (34.0-47.0) L 09/16/16 06:59 MCV 74.3 fL (81.0-99.0) L 09/16/16 06:59 MCH 22.9 pg (27.0-31.0) L 09/16/16 06:59 MCHC 30.8 g/dL (33.0-37.0) L 09/16/16 06:59 RDW 23.5 % (11.5-14.5) H 09/16/16 06:59 Plt Count 254 K/uL (130-400) 09/16/16 06:59 MPV 7.9 fL (7.2-11.7) 09/16/16 06:59 Neut % (Auto) 42.0 % (50.0-75.0) L 09/16/16 06:59 Lymph % (Auto) 49.0 % (20.0-40.0) H 09/16/16 06:59 [place] % (Auto) 5.0 % (0.0-10.0) 09/16/16 06:59 Eos % (Auto) 4.0 % (0.0-4.0) 09/16/16 06:59 Baso % (Auto) 0.0 % (0.0-2.0) 09/16/16 06:59 Neut # 2.7 K/uL (1.8-7.0) 09/16/16 06:59 Lymph # 3.2 K/uL (1.0-4.3) 09/16/16 06:59 [place] # 0.3 K/uL (0.0-0.8) 09/16/16 06:59 Eos # 0.2 K/uL (0.0-0.7) 09/16/16 06:59 Baso # 0.0 K/uL (0.0-0.2) 09/16/16 06:59 Sodium 138 mmol/L (132-148) 09/16/16 06:59 Potassium 3.5 mmol/L (3.6-5.2) L 09/16/16 06:59 Chloride 103 mmol/L (98-107) 09/16/16 06:59 Carbon Dioxide 26 mmol/L (22-30) 09/16/16 06:59 Anion Gap 13 (10-20) 09/16/16 06:59 BUN 10 mg/dL (7-17) 09/16/16 06:59 Creatinine 0.8 MG/DL (0.7-1.2) 09/16/16 06:59 Est GFR ( Amer) > 60 09/16/16 06:59 Est GFR (Non-Af Amer) > 60 09/16/16 06:59 POC Glucose (mg/dL) 98 mg/dL (65-110) 09/15/16 21:20 Random Glucose 84 mg/dL (65-105) 09/16/16 06:59 Calcium 9.1 mg/dl (8.6-10.4) 09/16/16 06:59 Phosphorus 3.9 mg/dL (2.5-4.5) 09/16/16 06:59 Magnesium 2.1 mg/dL (1.6-2.3) 09/16/16 06:59 Total Bilirubin 0.8 mg/dL (0.2-1.3) 09/16/16 06:59 AST 28 U/L (14-36) 09/16/16 06:59 ALT 12 U/L (9-52) 09/16/16 06:59 Alkaline Phosphatase 91 U/L (38-126) 09/16/16 06:59 Total Protein 8.1 g/dL (6.3-8.3) 09/16/16 06:59 Albumin 3.9 g/dL (3.5-5.0) 09/16/16 06:59 Globulin 4.1 gm/dL (2.2-3.9) H 09/16/16 06:59 Albumin/Globulin Ratio 1.0 (1.0-2.1) 09/16/16 06:59 Lipase 183 U/L (23-300) 09/16/16 06:59 Urine Color Yellow (YELLOW) 09/13/16 09:57 Urine Clarity Clear (Clear) 09/13/16 09:57 Urine pH 6.0 (5.0-8.0) 09/13/16 09:57 Ur Specific [place] 1.009 (1.003-1.030) 09/13/16 09:57 Urine Protein Negative mg/dL (NEGATIVE) 09/13/16 09:57 Urine Glucose (UA) Normal mg/dL (Normal) 09/13/16 09:57 Urine Ketones Negative mg/dL (NEGATIVE) 09/13/16 09:57 Urine Blood Negative (NEGATIVE) 09/13/16 09:57 Urine Nitrate Negative (NEGATIVE) 09/13/16 09:57 Urine Bilirubin Negative (NEGATIVE) 09/13/16 09:57 Urine Urobilinogen 2.0 mg/dL (0.2-1.0) H 09/13/16 09:57 Ur Leukocyte Esterase Neg Ananda/uL (Negative) 09/13/16 09:57 Urine WBC (Auto) < 1 /hpf (0-5) 09/13/16 09:57 Ur Squamous Epith Cells 1 /hpf (0-5) 09/13/16 09:57 Urine Bacteria Rare (<OCC) 09/13/16 09:57 Ur L.pneumophila Ag Negative (NEGATIVE) 09/13/16 11:09 Blood Type B POSITIVE 09/14/16 14:33 Antibody Screen Negative 09/14/16 14:33 - Hospital Course Hospital Course: Upon Admission: CC: "Cough, bright red blood coming from trach site, weakness, green sputum coming from trach site" HPI: Pt is a 61 y/o -[place] Female with a PMHx of Hepatitis C, diverticulosis, HTN, gastritis, asthma, major depressive disorder, and severe arthritis who presented to the ED today with complaints of bloody coming from her trachesotomy site for the past 5 days. Pt reports that she has not had a suction device for the past year so she has been using a straw to remove the sputum from her throat. 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 She reports the surgery occurred at [facility] in [place]. She reports that she believes she irritated her throat with the straw and as a result she has had bright red blood being coming out. She also reports that over the past few weeks she has had thick, green sputum production and a cough that that has been getting progressively worse. She also reports that she has been feeling generally weak as well. Pt denies fever, chills, chest pain, nausea , vomiting, diarrhea, constipation. PMD: Dr. Gerard Henderson Pain Management: Dr. Felipe PMHx: Hepatitis C, diverticulosis, HTN, gastritis, asthma, major depressive disorder, and severe arthritis Home medications: Reviewed. 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 Patient was found to be anemic but due to poor venous access, she was unable to be transfused. A PICC line was placed, and she was transfused 2 units of packed red blood cells. Patient was placed on oral antibiotics and later changed to IV antibiotics for pneumonia due to PICC line access. Patient was given supplies for home suctioning, nebulizers and medications for her asthma. She is to continue oral antibiotics for her pneumonia. She was also given a referral for ENT and Cardiothoracic Surgery for consultations on her tracheostomy, if it can be closed. Patient stated she understand and agrees with the plan. This is a brief summary of the patients hospital course. Please review EMR for complete record. Discharge Exam - Head Exam Head Exam: NORMAL INSPECTION, NORMOCEPHALIC - Eye Exam Eye Exam: Normal appearance - ENT Exam ENT Exam: Mucous Membranes Moist - Neck Exam Additional comments: tracheostomy - Respiratory Exam Respiratory Exam: NORMAL BREATHING PATTERN. absent: Decreased Breath Sounds, Wheezes - Cardiovascular Exam Cardiovascular Exam: REGULAR RHYTHM, RRR, +S1, +S2 - GI/Abdominal Exam GI & Abdominal Exam: Normal Bowel Sounds, Soft. absent: Distended, Tenderness - Extremities Exam Extremities exam: normal inspection, pedal pulses present - Neurological Exam Neurological exam: Alert, Oriented x3 - Skin Skin Exam: Dry, Intact, Normal Color, Warm Discharge Plan - Discharge Medications Prescriptions: Moxifloxacin [Avelox] 400 mg PO DAILY #5 tab - Follow Up Plan Condition: STABLE Disposition: HOME/ ROUTINE Additional Instructions: Patient instructed to continue current home medications, in addition to Avelox 400mg PO daily x 5 days, antibiotic for her pneumonia. Patient given referral for ENT and Cardiothoracic for tracheostomy care. Patient supplied with home suction and nebulizer, she was instructed on its use. Please return to the ED if your symptoms worsen. Referrals: Shay Hinds MD [Staff Provider] - Ron Quintanilla MD [Staff Provider] - <Kamla Osborne V - Last Filed: 09/16/16 20:12> Provider - Provider Date of Admission: 09/13/16 09:08 Attending physician: Kamla Osborne, Hospital Course - Lab Results Lab Results: Micro Results 09/13/16 10:00 Blood Blood Culture - Preliminary NO GROWTH AFTER 3 DAYS Most Recent Lab Values WBC 6.4 K/uL (4.8-10.8) 09/16/16 06:59 RBC 4.06 Mil/uL (3.80-5.20) 09/16/16 06:59 Hgb 9.3 g/dL (11.0-16.0) L 09/16/16 06:59 Hct 30.2 % (34.0-47.0) L 09/16/16 06:59 MCV 74.3 fL (81.0-99.0) L 09/16/16 06:59 MCH 22.9 pg (27.0-31.0) L 09/16/16 06:59 MCHC 30.8 g/dL (33.0-37.0) L 09/16/16 06:59 RDW 23.5 % (11.5-14.5) H 09/16/16 06:59 Plt Count 254 K/uL (130-400) 09/16/16 06:59 MPV 7.9 fL (7.2-11.7) 09/16/16 06:59 Neut % (Auto) 42.0 % (50.0-75.0) L 09/16/16 06:59 Lymph % (Auto) 49.0 % (20.0-40.0) H 09/16/16 06:59 [place] % (Auto) 5.0 % (0.0-10.0) 09/16/16 06:59 Eos % (Auto) 4.0 % (0.0-4.0) 09/16/16 06:59 Baso % (Auto) 0.0 % (0.0-2.0) 09/16/16 06:59 Neut # 2.7 K/uL (1.8-7.0) 09/16/16 06:59 Lymph # 3.2 K/uL (1.0-4.3) 09/16/16 06:59 [place] # 0.3 K/uL (0.0-0.8) 09/16/16 06:59 Eos # 0.2 K/uL (0.0-0.7) 09/16/16 06:59 Baso # 0.0 K/uL (0.0-0.2) 09/16/16 06:59 Sodium 138 mmol/L (132-148) 09/16/16 06:59 Potassium 3.5 mmol/L (3.6-5.2) L 09/16/16 06:59 Chloride 103 mmol/L (98-107) 09/16/16 06:59 Carbon Dioxide 26 mmol/L (22-30) 09/16/16 06:59 Anion Gap 13 (10-20) 09/16/16 06:59 BUN 10 mg/dL (7-17) 09/16/16 06:59 Creatinine 0.8 MG/DL (0.7-1.2) 09/16/16 06:59 Est GFR ( Amer) > 60 09/16/16 06:59 Est GFR (Non-Af Amer) > 60 09/16/16 06:59 POC Glucose (mg/dL) 98 mg/dL (65-110) 09/15/16 21:20 Random Glucose 84 mg/dL (65-105) 09/16/16 06:59 Calcium 9.1 mg/dl (8.6-10.4) 09/16/16 06:59 Phosphorus 3.9 mg/dL (2.5-4.5) 09/16/16 06:59 Magnesium 2.1 mg/dL (1.6-2.3) 09/16/16 06:59 Total Bilirubin 0.8 mg/dL (0.2-1.3) 09/16/16 06:59 AST 28 U/L (14-36) 09/16/16 06:59 ALT 12 U/L (9-52) 09/16/16 06:59 Alkaline Phosphatase 91 U/L (38-126) 09/16/16 06:59 Total Protein 8.1 g/dL (6.3-8.3) 09/16/16 06:59 Albumin 3.9 g/dL (3.5-5.0) 09/16/16 06:59 Globulin 4.1 gm/dL (2.2-3.9) H 09/16/16 06:59 Albumin/Globulin Ratio 1.0 (1.0-2.1) 09/16/16 06:59 Lipase 183 U/L (23-300) 09/16/16 06:59 Urine Color Yellow (YELLOW) 09/13/16 09:57 Urine Clarity Clear (Clear) 09/13/16 09:57 Urine pH 6.0 (5.0-8.0) 09/13/16 09:57 Ur Specific [place] 1.009 (1.003-1.030) 09/13/16 09:57 Urine Protein Negative mg/dL (NEGATIVE) 09/13/16 09:57 Urine Glucose (UA) Normal mg/dL (Normal) 09/13/16 09:57 Urine Ketones Negative mg/dL (NEGATIVE) 09/13/16 09:57 Urine Blood Negative (NEGATIVE) 09/13/16 09:57 Urine Nitrate Negative (NEGATIVE) 09/13/16 09:57 Urine Bilirubin Negative (NEGATIVE) 09/13/16 09:57 Urine Urobilinogen 2.0 mg/dL (0.2-1.0) H 09/13/16 09:57 Ur Leukocyte Esterase Neg Ananda/uL (Negative) 09/13/16 09:57 Urine WBC (Auto) < 1 /hpf (0-5) 09/13/16 09:57 Ur Squamous Epith Cells 1 /hpf (0-5) 09/13/16 09:57 Urine Bacteria Rare (<OCC) 09/13/16 09:57 Ur L.pneumophila Ag Negative (NEGATIVE) 09/13/16 11:09 Blood Type B POSITIVE 09/14/16 14:33 Antibody Screen Negative 09/14/16 14:33 Attending/Attestation - Attestation I have personally seen and examined this patient.: Yes I have fully participated in the care of the patient.: Yes I have reviewed all pertinent clinical information, including history, physical exam and plan: Yes Notes (Text): Patient seen, examined and case discussed with day-time resident. Patient seen at bedside with resident. Patient reports mild abdominal pain but otherwise reports she is doing well. Patient tolerated 2 units PRBC transfusion yesterday. Hemoglobin: 9.3. Patient refuses fenestrated trach/speech valve; patient reports she has had many attempts in the past and finds it uncomfortable. Instructed patient at bedside, that inserting straw to her area of the neck can cause further damage because it site of many vessel and nor is it sanitary. Case management is aware awaiting authorization regarding home nebulizer and home suctioning prior to discharge. Assessment/Plan 1) Anemia: * H/H: 7.1/24.7 * Stool for occult blood pending * PICC line in place: transfused 2 units on 09/15/16 * Hgb: 9.3 2) Pneumonia: * Afebrile, tachycardiac * No leukocytosis * CXR- diffused interstitial lung markings, which may represent edema and or underlying infiltrates, patchy markngs in the right lower lung zone and medial right lung base suggestive of possible infiltrate * Urine legionella: negative, mycoplasma, strep pneumo ag ordered * Avelox 400 mg IV qdaily-->will switch to PO on discharge 3) Malfunctioned tracheostomy tube * Pulmonology, Dr. Mckeon, consulted. Help appreciated - patient requires home neb, home suction, speech therapy for speaking valve. * Speech therapy note: patient refused fenestrated trach * Humidified 02 * Mucinex 600 mg po tid, Mucomyst Q6H * pending authorization for 4) Asthma * Duonebs 6h estephania * Mucinex 600 mg po tid, Mucomyst Q6H 5) HTN: Home meds restarted * Metoprolol 25 mg po tid * Norvasc 10 mg po qdaily * HCTZ 25 mg po qdaily 6) Major Depressive Disorder: Home meds restarted * Lexapro 10 mg po qdaily * Risperidone 3 mg po qdaily * Trazodone 100 mg po qdaily 7) Neuropathic Pain: * Neurontin 800 mg po TID 8)Arthritis/Chronic Back pain: * Percocet 5/325 mg 2 tab po q6h prn * Flexeril 10 mg po TID 9) Prophylactic Measures: * DVT: SCDs, chemical anticoagulation held due to anemia, hemoglobin stable * GI: Protonix 40 mg po qdaily * Heart Healthy Diet
[2016-09-17] MEDS: Acetylcysteine 20% Inhal Soln (4ml) INH SCH ×3 (01:42→19:23)
[2016-09-17] MEDS: Albuterol-Ipratrop 3 mg / 0.5 (3 ml) UD INH SCH ×3 (01:42→19:23)
[2016-09-17] MEDS: Oxycodone/Acetaminophen 5/325 mg Tab PO PRN (05:19)
[2016-09-17 07:37] LABS: BASO # 0.1 K/uL (0.0-0.2); EOS # 0.1 K/uL (0.0-0.7); EOS % 2.2 % (0.0-4.0); HEMATOCRIT 29.3 % (34.0-47.0); LYMPH # 4.2 K/uL (1.0-4.3); MEAN CELL VOLUME 74.6 fL (81.0-99.0); MEAN CORPUSCULAR HEMOGLOBIN 22.8 pg (27.0-31.0); MEAN CORPUSCULAR HGB CONC 30.6 g/dL (33.0-37.0); MEAN PLATELET VOLUME 7.7 fL (7.2-11.7); MONO # 0.3 K/uL (0.0-0.8); MONO % 4.9 % (0.0-10.0); NRBC % 0.4 % (0.0-2.0); PLATELET COUNT 280 K/uL (130-400); RED CELL DISTRIBUTION WIDTH 24.1 % (11.5-14.5); WHITE BLOOD COUNT 6.2 K/uL (4.8-10.8)
[2016-09-17 07:49] LABS: BILIRUBIN,TOTAL 0.7 mg/dL (0.2-1.3)
[2016-09-17 07:50] LABS: CALCIUM 8.7 mg/dl (8.6-10.4); MAGNESIUM 2.5 mg/dL (1.6-2.3); TOTAL PROTEIN 7.9 g/dL (6.3-8.3)
[2016-09-17] MEDS: Pantoprazole 40 mg EC Tab PO SCH (09:34)
[2016-09-17] MEDS: Potassium Chloride 20 mEq ER Tab PO SCH (09:34)
[2016-09-17] MEDS: Metoprolol Succinate 50 mg XL Tab PO SCH (09:34)
[2016-09-17] MEDS: guaiFENesin 600 mg ER Tab PO SCH ×2 (09:35→17:36)
[2016-09-17] MEDS: Multivitamin With Minerals Tab PO SCH (09:35)
[2016-09-17 09:40] LABS: BASOPHIL 1 % (0-2); EOSINOPHIL 3 % (0-4); NEUTROPHIL 49 % (50-75); TOTAL CELLS COUNTED 100
[2016-09-17] MEDS: Simethicone 80 mg Chewtab PO SCH ×3 (09:52→17:37)
[2016-09-17] MEDS: Moxifloxacin IV 400mg/250ml NS 400 MG/250 ML BAG IVPB SCH (09:53)
--- NOTE | 2016-09-17 12:30 | CT ---
PROCEDURE: CT HEAD WITHOUT CONTRAST. HISTORY: change in gait COMPARISON: None available. TECHNIQUE: Axial computed tomography images were obtained through the head/brain without intravenous contrast. Radiation dose: Total exam DLP = 1037.52 mGy-cm. This CT exam was performed using one or more of the following dose reduction techniques: Automated exposure control, adjustment of the mA and/or kV according to patient size, and/or use of iterative reconstruction technique. FINDINGS: HEMORRHAGE: No intracranial hemorrhage. BRAIN: No mass effect or edema. No atrophy or chronic microvascular ischemic changes. VENTRICLES: Unremarkable. No hydrocephalus. CALVARIUM: Unremarkable. PARANASAL SINUSES: Unremarkable as visualized. No significant inflammatory changes. MASTOID AIR CELLS: Unremarkable as visualized. No inflammatory changes. OTHER FINDINGS: None. IMPRESSION: Normal CT of the Head.
[2016-09-17] MEDS ORDERED: Glucagon Recombinant 1 mg Inj IV STA (12:45)
[2016-09-17] MEDS ORDERED: Glucagon Recombinant 1 mg Inj ONE (12:53)
[2016-09-17] MEDS ORDERED: Naloxone 0.4 mg/ml Inj (Adult) ONE (13:03)
--- NOTE | 2016-09-17 14:14 | CP.PCM.PN ---
<Louisa Vivar - Last Filed: 09/17/16 14:03> Subjective - Date & Time of Evaluation Date of Evaluation: 09/17/16 Time of Evaluation: 10:00 - Subjective Subjective: Medicine Note for Dr. Osborne, Patient was seen and examined at bedside. As per nursing, starting last night the patient started to have jerky movements and constantly dropping things. This morning I had the patient walk with me down the hallway and she continued to keep dropping the hairbrush she had in her hand. Head CT was ordered, read as normal CT of the head. Upon patient arriving back from CT, she became hypotensive with BP of 77/60s. She was bolused 1 L, and placed on maintenance fluids @ 100cc/hr. POC glucose was 129. EKG was NSR. Patient had a bag next to her bed full of her home medications, it is unknown if the patient self medicated last night causing this hypotension. Patient was given 1 amp glucagon and Narcan. CBC/ CMP/ mag /phos, EKG, were ordered. After Narcan was administered the patient became more responsive and her BP stabilized at 120/76. All of the patient's blood pressure, pain medications were held due to this episode. Neurology was consulted and a repeat Head CT was ordered. Objective - Vital Signs/Intake and Output Vital Signs (last 24 hours): Temp Pulse Resp BP Pulse Ox 97.9 F 65 20 131/84 96 09/17/16 07:30 09/17/16 07:30 09/17/16 07:30 09/17/16 07:30 09/17/16 07:30 Intake and Output: 09/17/16 09/17/16 06:59 18:59 Intake Total 760 Balance 760 - Medications Medications: Current Medications Acetylcysteine (Acetylcysteine 20%) 4 ml INH RQ6 [facility] Last Admin: 09/17/16 07:34 Dose: Not Given Albuterol/Ipratropium (Duoneb 3 Mg/0.5 Mg (3 Ml) Ud) 3 ml INH RQ6 [facility] Last Admin: 09/17/16 07:34 Dose: Not Given Amlodipine Besylate (Norvasc) 10 mg PO DAILY [facility] Last Admin: 09/17/16 09:34 Dose: 10 mg Cyclobenzaprine HCl (Flexeril) 10 mg PO TID [facility] Last Admin: 09/17/16 09:35 Dose: 10 mg Diphenhydramine HCl (Benadryl) 25 mg PO Q6H PRN PRN Reason: Itching / Pruritus Escitalopram Oxalate (Lexapro) 10 mg PO DAILY [facility] Last Admin: 09/17/16 09:34 Dose: 10 mg Gabapentin (Neurontin) 800 mg PO TID [facility] Last Admin: 09/17/16 09:35 Dose: 800 mg Guaifenesin (Mucinex La) 600 mg PO BID [facility] Last Admin: 09/17/16 09:35 Dose: 600 mg Hydrochlorothiazide (Hydrodiuril) 25 mg PO DAILY [facility] Last Admin: 09/17/16 09:34 Dose: 25 mg Hydroxyzine HCl (Atarax) 25 mg PO DAILY [facility] Last Admin: 09/17/16 09:36 Dose: 25 mg Moxifloxacin HCl (Avelox Iv 400mg/250ml Ns) 400 mg in 250 mls @ 167 mls/hr IVPB Q24H [facility] Last Admin: 09/17/16 09:53 Dose: 167 mls/hr Metoprolol Succinate (Toprol Xl) 50 mg PO DAILY [facility] Last Admin: 09/17/16 09:34 Dose: 50 mg Multivitamins/Minerals (Therapeutic-M Tab) 1 tab PO DAILY [facility] Last Admin: 09/17/16 09:35 Dose: 1 tab Oxycodone/Acetaminophen (Percocet 5/325 Mg Tab) 2 tab PO Q6H [facility] Last Admin: 09/17/16 05:19 Dose: 2 tab Pantoprazole Sodium (Protonix Ec Tab) 40 mg PO DAILY [facility] Last Admin: 09/17/16 09:34 Dose: 40 mg Potassium Chloride (K-Dur 20 Meq Er Tab) 20 meq PO DAILY [facility] Last Admin: 09/17/16 09:34 Dose: 20 meq Risperidone (Risperdal Tab) 3 mg PO HS [facility] Last Admin: 09/16/16 22:09 Dose: 3 mg Simethicone (Mylicon Chew Tab) 80 mg PO TID [facility] Last Admin: 09/17/16 09:52 Dose: 80 mg Sumatriptan Succinate (Imitrex Tab) 50 mg PO DAILY [facility] Last Admin: 09/16/16 11:21 Dose: 50 mg Topiramate (Topamax) 50 mg PO DAILY [facility] Last Admin: 09/17/16 09:35 Dose: 50 mg Trazodone HCl (Desyrel) 100 mg PO HS [facility] Last Admin: 09/16/16 22:09 Dose: 100 mg - Labs Labs: 09/17/16 07:21 09/17/16 07:21 - Constitutional Appears: Toxic - Head Exam Head Exam: NORMAL INSPECTION, NORMOCEPHALIC - Respiratory Exam Respiratory Exam: NORMAL BREATHING PATTERN - Cardiovascular Exam Cardiovascular Exam: Tachycardia - GI/Abdominal Exam GI & Abdominal Exam: Distended, Soft, Normal Bowel Sounds - Extremities Exam Extremities Exam: Normal Inspection. absent: Joint Swelling, Pedal Edema, Tenderness - Neurological Exam Neurological Exam: Altered - Skin Skin Exam: Dry, Intact, Normal Color, Warm Assessment and Plan - Assessment and Plan (Free Text) Plan: New Onset Hypotension and AMS: * HEAD CT: normal head CT * Repeat CT ordered after onset of hypotension * 1 L NS bolused and started on NS 100cc/hr * 1 amp Glucagon and Narcan administered * Neurology consulted - help appreciated * F/U Labs * F/U Repeat Head CT Pneumonia: * Afebrile, tachycardiac * No leukocytosis * CXR- diffused interstitial lung markings, which may represent edema and or underlying infiltrates, patchy markngs in the right lower lung zone and medial right lung base suggestive of possible infiltrate * Urine legionella: negative, mycoplasma, strep pneumo ag ordered * Avelox 400 mg IV qdaily-->will switch to PO on discharge Anemia: * H/H: 7.1/24.7 * Stool for occult blood pending * PICC line in place: transfused 2 units on 09/15/16 * Hgb: 9.0 Malfunctioned tracheostomy tube * Pulmonology, Dr. Mckeon, consulted. Help appreciated - patient requires home neb, home suction, speech therapy for speaking valve. * Speech therapy note: patient refused fenestrated trach * Humidified 02 * Mucinex 600 mg po tid, Mucomyst Q6H * pending authorization for Asthma * Duonebs 6h estephania * Mucinex 600 mg po tid, Mucomyst Q6H HTN: Home meds HELD * Metoprolol 25 mg po tid * Norvasc 10 mg po qdaily * HCTZ 25 mg po qdaily Major Depressive Disorder: Home meds restarted * Lexapro 10 mg po qdaily * Risperidone 3 mg po qdaily- HELD * Trazodone 100 mg po qdaily Neuropathic Pain: * Neurontin 800 mg po TID- HELD Arthritis/Chronic Back pain: * Percocet 5/325 mg 2 tab po q6h prn- HELD * Flexeril 10 mg po TID- HELD Prophylactic Measures: * DVT: SCDs, chemical anticoagulation held due to anemia, hemoglobin stable * GI: Protonix 40 mg po qdaily * Heart Healthy Diet DW Cb Cantu DO, PGY-1 <Kamla Osborne V - Last Filed: 09/17/16 20:08> Objective - Vital Signs/Intake and Output Vital Signs (last 24 hours): Temp Pulse Resp BP Pulse Ox 97.9 F 65 20 131/84 96 09/17/16 07:30 09/17/16 07:30 09/17/16 07:30 09/17/16 07:30 09/17/16 07:30 Intake and Output: 09/17/16 09/18/16 18:59 06:59 Intake Total 1730 Balance 1730 - Medications Medications: Current Medications Acetylcysteine (Acetylcysteine 20%) 4 ml INH RQ6 [facility] Last Admin: 09/17/16 19:23 Dose: 4 ml Albuterol/Ipratropium (Duoneb 3 Mg/0.5 Mg (3 Ml) Ud) 3 ml INH RQ6 [facility] Last Admin: 09/17/16 19:23 Dose: 3 ml Escitalopram Oxalate (Lexapro) 10 mg PO DAILY [facility] Last Admin: 09/17/16 09:34 Dose: 10 mg Guaifenesin (Mucinex La) 600 mg PO BID [facility] Last Admin: 09/17/16 17:36 Dose: 600 mg Hydroxyzine HCl (Atarax) 25 mg PO DAILY [facility] Last Admin: 09/17/16 09:36 Dose: 25 mg Moxifloxacin HCl (Avelox Iv 400mg/250ml Ns) 400 mg in 250 mls @ 167 mls/hr IVPB Q24H [facility] Last Admin: 09/17/16 09:53 Dose: 167 mls/hr Sodium Chloride (Sodium Chloride 0.9%) 1,000 mls @ 125 mls/hr IV .Q8H [facility] Last Admin: 09/17/16 16:34 Dose: 125 mls/hr Multivitamins/Minerals (Therapeutic-M Tab) 1 tab PO DAILY [facility] Last Admin: 09/17/16 09:35 Dose: 1 tab Oxycodone/Acetaminophen (Percocet 5/325 Mg Tab) 1 tab PO Q6H PRN PRN Reason: Pain, severe (8-10) Stop: 09/20/16 18:44 Pantoprazole Sodium (Protonix Ec Tab) 40 mg PO DAILY [facility] Last Admin: 09/17/16 09:34 Dose: 40 mg Potassium Chloride (K-Dur 20 Meq Er Tab) 20 meq PO DAILY [facility] Last Admin: 09/17/16 09:34 Dose: 20 meq Simethicone (Mylicon Chew Tab) 80 mg PO TID [facility] Last Admin: 09/17/16 17:37 Dose: 80 mg Sumatriptan Succinate (Imitrex Tab) 50 mg PO DAILY [facility] Last Admin: 09/16/16 11:21 Dose: 50 mg Topiramate (Topamax) 50 mg PO DAILY [facility] Last Admin: 09/17/16 09:35 Dose: 50 mg Trazodone HCl (Desyrel) 100 mg PO HS [facility] Last Admin: 09/16/16 22:09 Dose: 100 mg - Labs Labs: 09/17/16 14:23 09/17/16 14:23 Attending/Attestation - Attestation I have personally seen and examined this patient.: Yes I have fully participated in the care of the patient.: Yes I have reviewed all pertinent clinical information, including history, physical exam and plan: Yes Notes (Text): Patient seen, examined and case discussed with day-time resident multiple times during the day. * Patient seen at bedside with resident this morning. Per discussion with nursing this morning, patient overnight did not seem like herself, keeps dropping things when she usually doesn't. Patient seen at morning rounds--> patient appeared tired and dropping things while standing outside of the bathroom. Ordered for CT Head. Discharge held this morning given this change. * Upon completed of CT head, patient had rapid response called at 12:35pm. Patient was hypotensive and lethargic but speaking and able to guard her airway. No observed focal deficits and checked patient at bedside. Patient placed in [place], given fluid bolus, and Glucagon and Narcan 0.4mg IV X1 given at bedside. Blood pressure improved following bolus and reversal agents for Opiod and Blood pressure medications. Patient improved following rapid response. Patient noted she was taking her personal medications and in addition to home medications which included pain medications, respideral, and multiple blood pressure medications. Neurology consult recommended for repeat CT head which was normal. * Saw patient again in the evening with [id number] at bedside, permitted to speak regarding her medical information. Patient reporting muscle aches and pains. Discussed with the patient, she CANNOT take both her home medications and her hospital medications in light of the events given this morning which contributed to her lethargic state. Patient requesting for percocet given her pain. I instructed to the patient i will give her Percocet 1 tab PO Q 6hour PRN pain and will not give her other medications until I see her in the morning. I also explained to the patient she had muscle breakdown in light of elevated CPK , and she will need to be on IV fluids until she is safe to be discharge. * ENT (Dr. Quintanilla) consulted following rapid response because patient reported she felt something in her throat. Discussed with ENT, reports gerd but recommending for GI consult. Assessment/Plan 1) Altered mental status * likely secondary to polypharmacy due to pain medication and blood pressure medication as stated above * Neurology (Dr. Reinoso) on board--> help appreciated * CT head X2: no acute findings * Mental status changed during the day, and improved this evening. * Held all pain medications and held blood pressure medications in light of HEARING AID SPECIALIST * Patient's home medications secured by security following [employer]IST so patient does not take home meds and psych meds * Respideral held in light of prolonged QT-->ordered for repeat EKG for tomorrow morning 2) Rhabdomyolysis * Patient started on IV fluids * will monitor CPK * held all pain medications/blood pressure medications in light of [employer] A[employer] SPECIALIST * patient started on low dose Percocet 1 tab PO Q 6hour PRN pain 3) Anemia: * H/H: 7.1/24.7 * Stool for occult blood pending * PICC line in place: transfused 2 units on 09/15/16 * Hgb: 8.7 4) Pneumonia: * Afebrile, tachycardiac * No leukocytosis * CXR- diffused interstitial lung markings, which may represent edema and or underlying infiltrates, patchy markngs in the right lower lung zone and medial right lung base suggestive of possible infiltrate * Urine legionella: negative, mycoplasma, strep pneumo ag ordered * Avelox 400 mg IV qdaily 5) Malfunctioned tracheostomy tube * Pulmonology, Dr. Mckeon, consulted. Help appreciated - patient requires home neb, home suction, speech therapy for speaking valve. * Case management has setup home nebulizer and home suctioning which was delivered to house; discussed with patient's daughter in law. * Speech therapy note: patient refused fenestrated trach * Humidified 02 * Mucinex 600 mg po tid, Mucomyst Q6H * Patient self care trach 6) Asthma * Duonebs 6h estephania * Mucinex 600 mg po tid, Mucomyst Q6H 7) HTN: * Blood pressure medications held in light of [employer]IST which included hypotension * Patient is currently on IV fluids\ * Home meds restarted: Metoprolol 25 mg po tid, Norvasc 10 mg po qdaily and HCTZ 25 mg po qdaily * Given 1 ampule glucagon during [employer] to reverse beta/calcium channel gonzalez 8) Major Depressive Disorder: * held Risperdone given prolonged QT * Lexapro 10 mg po qdaily * Trazodone 100 mg po qdaily 9) Neuropathic Pain: * held Neurontin 800 mg po TID 10)Arthritis/Chronic Back pain: * restarted low dose percocet 1 tab PO Q 6hour PRN pain * hold Percocet 5/325 mg 2 tab po q6h prn and Flexeril 10 mg po TID in light of [employer]ID SPECIALIST 11) Prophylactic Measures: * DVT: SCDs, chemical anticoagulation held due to anemia, hemoglobin stable * GI: Protonix 40 mg po qdaily * Heart Healthy Diet
[2016-09-17] MEDS ORDERED: Sodium Chloride 0.9% 1,000 ML IV SCH (14:15)
[2016-09-17 14:27] LABS: HEMATOCRIT 28.5 % (34.0-47.0); MEAN CELL VOLUME 74.8 fL (81.0-99.0); MEAN CORPUSCULAR HEMOGLOBIN 22.9 pg (27.0-31.0); MEAN CORPUSCULAR HGB CONC 30.6 g/dL (33.0-37.0); MEAN PLATELET VOLUME 7.6 fL (7.2-11.7); RED CELL DISTRIBUTION WIDTH 24.3 % (11.5-14.5); WHITE BLOOD COUNT 8.8 K/uL (4.8-10.8)
[2016-09-17 14:47] LABS: CHLORIDE 106 mmol/L (98-107); POTASSIUM 3.7 mmol/L (3.6-5.2); SODIUM 138 mmol/L (132-148)
[2016-09-17 14:49] LABS: GFR AFRICAN-AMERICAN > 60
[2016-09-17 14:50] LABS: ALB/GLOB RATIO 0.9 (1.0-2.1); ALKALINE PHOSPHATASE 77 U/L (38-126); ALT/SGPT 44 U/L (9-52); AST/SGOT 155 U/L (14-36); BILIRUBIN,TOTAL 0.7 mg/dL (0.2-1.3); BLOOD UREA NITROGEN 14 mg/dL (7-17); CALCIUM 8.1 mg/dl (8.6-10.4); CARBON DIOXIDE 23 mmol/L (22-30); GLUCOSE,RANDOM 115 mg/dL (65-105); MAGNESIUM 2.4 mg/dL (1.6-2.3); TOTAL PROTEIN 7.5 g/dL (6.3-8.3)
--- NOTE | 2016-09-17 15:17 | CT ---
PROCEDURE: CT HEAD WITHOUT CONTRAST. HISTORY: AMS COMPARISON: 09/17/2016 12:12 p.m. TECHNIQUE: Axial computed tomography images were obtained through the head/brain without intravenous contrast. Radiation dose: Total exam DLP = 830.76 mGy-cm. This CT exam was performed using one or more of the following dose reduction techniques: Automated exposure control, adjustment of the mA and/or kV according to patient size, and/or use of iterative reconstruction technique. FINDINGS: HEMORRHAGE: No intracranial hemorrhage. BRAIN: No mass effect or edema. No atrophy or chronic microvascular ischemic changes. VENTRICLES: Unremarkable. No hydrocephalus. CALVARIUM: Unremarkable. PARANASAL SINUSES: Unremarkable as visualized. No significant inflammatory changes. MASTOID AIR CELLS: Unremarkable as visualized. No inflammatory changes. OTHER FINDINGS: None. IMPRESSION: No intracranial mass, hemorrhage or evidence of acute infarct. Unremarkable examination.
[2016-09-17] MEDS: Sodium Chloride 0.9% 1,000 ML IV SCH (16:34)
[2016-09-17] MEDS ORDERED: Oxycodone/Acetaminophen 5/325 mg Tab PO PRN ×2 (18:41→18:43)
[2016-09-18] MEDS: Acetylcysteine 20% Inhal Soln (4ml) INH SCH ×4 (01:18→19:15)
[2016-09-18] MEDS: Albuterol-Ipratrop 3 mg / 0.5 (3 ml) UD INH SCH ×4 (01:18→19:15)
--- NOTE | 2016-09-18 01:20 | OP ---
PROCEDURE DATE: 09/17/2016 PREOPERATIVE DIAGNOSIS: Dysphagia. POSTOPERATIVE DIAGNOSIS: Dysphagia. PROCEDURES: Flexible laryngoscopy. SIGNIFICANT FINDINGS: Vocal cords not mobile bilaterally and mild erythema of the arytenoids. PROCEDURE: The patient was placed in a seated position. The nose was decongested using Afrin. Flexible laryngoscope was placed in the nasal cavity, passed through the nasopharynx, oropharynx, hypopharynx. The pharyngeal murcia, base of tongue, vallecula, epiglottis, AE folds, false cords, true cords, arytenoids, piriform sinuses were brought into view. Vocal cords were noted not to be mobile, mild arytenoid erythema was noted. The scope was removed. The patient tolerated the procedure well. She stated that vocal cord paralysis is something that she is aware of. She does have a history of GERD. She is on omeprazole. I would recommend a GI consult. It is believed that the globus sensation she is feeling could be due to acid reflux. Ron Quintanilla MD cc: [id number] TT: 09/18/2016 01:20:11 tn MTDD
[2016-09-18] MEDS: Sodium Chloride 0.9% 1,000 ML IV SCH ×4 (02:03→21:26)
[2016-09-18] MEDS: oxyCODONE 5 mg Immediate Release Tab PO PRN ×2 (02:07→09:03)
[2016-09-18] MEDS: Pantoprazole 40 mg EC Tab PO SCH (09:13)
[2016-09-18] MEDS: Potassium Chloride 20 mEq ER Tab PO SCH ×2 (09:13→09:18)
[2016-09-18] MEDS: Multivitamin With Minerals Tab PO SCH (09:13)
[2016-09-18] MEDS: guaiFENesin 600 mg ER Tab PO SCH ×2 (09:14→18:42)
[2016-09-18] MEDS: Simethicone 80 mg Chewtab PO SCH ×3 (09:19→18:44)
[2016-09-18 10:41] LABS: CHLORIDE 106 mmol/L (98-107)
[2016-09-18 10:42] LABS: POTASSIUM 4.4 mmol/L (3.6-5.2); SODIUM 137 mmol/L (132-148)
[2016-09-18 10:44] LABS: ALKALINE PHOSPHATASE 73 U/L (38-126); AST/SGOT 169 U/L (14-36); BILIRUBIN,TOTAL 0.7 mg/dL (0.2-1.3); BLOOD UREA NITROGEN 8 mg/dL (7-17); CARBON DIOXIDE 24 mmol/L (22-30); GFR AFRICAN-AMERICAN > 60; HEMATOCRIT 30.9 % (34.0-47.0); MEAN CELL VOLUME 75.5 fL (81.0-99.0); MEAN CORPUSCULAR HEMOGLOBIN 22.7 pg (27.0-31.0); MEAN PLATELET VOLUME 7.5 fL (7.2-11.7); RED CELL DISTRIBUTION WIDTH 24.8 % (11.5-14.5); TOTAL PROTEIN 7.8 g/dL (6.3-8.3); WHITE BLOOD COUNT 5.1 K/uL (4.8-10.8)
[2016-09-18 10:45] LABS: ALT/SGPT 65 U/L (9-52); CALCIUM 8.5 mg/dl (8.6-10.4); GLUCOSE,RANDOM 104 mg/dL (65-105); MAGNESIUM 1.9 mg/dL (1.6-2.3); PHOSPHOROUS 3.5 mg/dL (2.5-4.5)
[2016-09-18 11:12] LABS: BASO # 0.1 K/uL (0.0-0.2); BASO % 2.5 % (0.0-2.0); EOS # 0.3 K/uL (0.0-0.7); EOS % 6.4 % (0.0-4.0); LYMPH # 2.4 K/uL (1.0-4.3); LYMPH % 45.9 % (20.0-40.0); MONO # 0.6 K/uL (0.0-0.8); MONO % 10.9 % (0.0-10.0); NRBC % 0.1 % (0.0-2.0)
--- NOTE | 2016-09-18 11:36 | CP.PCM.CON ---
History of Present Illness - History of Present Illness History of Present Illness: CC: GI Service consult for globus sensation and GERD HPI: GI consult requested for this 61 year old woman with trachesostomy, feels a lot of phlegm in throat and suctions a lot of phlegm from her ostomy, sometimes with blood tinge. Long history of GERD, managed with Protonix lobsterman. Patient smokes 1/2 pack of cigarettes daily. Per my discussion with Dr Osborne, patient was seen by Dr Quintanilla yesterday and was felt to have reflux and GI consult was recommended. Patient also notes history of untreated Hepatitis C , chronic abdominal discomfort and bloating which she attributes to hernia, and chronic constipation which she attributes to diverticular disease noted on colonoscopy many years ago. Also, patient's LFTs are slowly rising while in hospital, they were normal on admission. Review of Systems - Constitutional Constitutional: absent: Fever - EENT Eyes: absent: Change in Vision Nose/Mouth/Throat: absent: Sore Throat, Throat Swelling - Cardiovascular Cardiovascular: absent: Chest Pain - Respiratory Respiratory: Dyspnea on Exertion, Excessive Mucous Production - Gastrointestinal Gastrointestinal: Abdominal Pain, Bloating, Constipation - Genitourinary Genitourinary: absent: Difficulty Urinating - Neurological Neurological: Dizziness. absent: Abnormal Gait - Psychiatric Psychiatric: Depression Past Patient History - Past Medical History & Family History Past Medical History?: Yes - Past Social History Smoking Status: Heavy Smoker > 10 Cigarettes Daily Alcohol: < 2 Drinks/Day Drugs: Denies Home Situation {Lives}: With Family - CARDIAC Hx Hypertension: Yes - PULMONARY Hx Asthma: Yes - NEUROLOGICAL Hx Seizures: No - HEMATOLOGICAL/ONCOLOGICAL Hx Anemia: Yes (chronic. Familial) Hx Hepatitis C: Yes (Untreated. Known x many years) Hx Human Immunodeficiency Virus (HIV): No - MUSCULOSKELETAL/RHEUMATOLOGICAL Hx Falls: No - GASTROINTESTINAL Hx Bowel Surgery: Yes Hx Diverticulitis: Yes Hx Gastritis: Yes - GENITOURINARY/GYNECOLOGICAL Hx Sexually Transmitted Disorders: No - PSYCHIATRIC Hx Depression: Yes Hx Substance Use: No - SURGICAL HISTORY Hx Hysterectomy: Yes Other/Comment: tracheostomy - ANESTHESIA Hx Anesthesia: Yes Meds Home Medications: Home Medication List Medication Instructions Recorded Confirmed Type Moxifloxacin [Avelox] 400 mg PO DAILY #5 tab 09/16/16 Rx Allergies/Adverse Reactions: Allergies Allergy/AdvReac Type Severity Reaction Status Date / Time codeine Allergy RASH Verified 09/13/16 04:41 ibuprofen Allergy RASH Verified 09/13/16 04:39 Penicillins Allergy RASH Verified 09/13/16 04:41 tramadol Allergy RASH Verified 09/13/16 04:41 - Medications Medications: Current Medications Acetylcysteine (Acetylcysteine 20%) 4 ml INH RQ6 [facility] Last Admin: 09/18/16 08:04 Dose: 4 ml Albuterol/Ipratropium (Duoneb 3 Mg/0.5 Mg (3 Ml) Ud) 3 ml INH RQ6 [facility] Last Admin: 09/18/16 08:04 Dose: 3 ml Escitalopram Oxalate (Lexapro) 10 mg PO DAILY [facility] Last Admin: 09/18/16 09:13 Dose: 10 mg Guaifenesin (Mucinex La) 600 mg PO BID [facility] Last Admin: 09/18/16 09:14 Dose: 600 mg Hydroxyzine HCl (Atarax) 25 mg PO DAILY [facility] Last Admin: 09/18/16 09:15 Dose: 25 mg Moxifloxacin HCl (Avelox Iv 400mg/250ml Ns) 400 mg in 250 mls @ 167 mls/hr IVPB Q24H [facility] Last Admin: 09/17/16 09:53 Dose: 167 mls/hr Sodium Chloride (Sodium Chloride 0.9%) 1,000 mls @ 125 mls/hr IV .Q8H [facility] Last Admin: 09/18/16 09:05 Dose: 125 mls/hr Multivitamins/Minerals (Therapeutic-M Tab) 1 tab PO DAILY [facility] Last Admin: 09/18/16 09:13 Dose: 1 tab Oxycodone HCl (Oxycodone Immediate Release Tab) 5 mg PO Q6 PRN PRN Reason: Pain, severe (8-10) Last Admin: 09/18/16 09:03 Dose: 5 mg Pantoprazole Sodium (Protonix Ec Tab) 40 mg PO DAILY [facility] Last Admin: 09/18/16 09:13 Dose: 40 mg Potassium Chloride (K-Dur 20 Meq Er Tab) 20 meq PO DAILY [facility] Last Admin: 09/18/16 09:18 Dose: Not Given Simethicone (Mylicon Chew Tab) 80 mg PO TID [facility] Last Admin: 09/18/16 09:19 Dose: Not Given Sumatriptan Succinate (Imitrex Tab) 50 mg PO DAILY [facility] Last Admin: 09/16/16 11:21 Dose: 50 mg Topiramate (Topamax) 50 mg PO DAILY [facility] Last Admin: 09/18/16 09:14 Dose: 50 mg Physical Exam - Constitutional Appears: Well, No Acute Distress - Head Exam Head Exam: NORMOCEPHALIC - Eye Exam Eye Exam: absent: Scleral icterus - ENT Exam Additional comments: Tracheostomy stoma present - Neck Exam Additional comments: Trach stoma - Respiratory Exam Respiratory Exam: NORMAL BREATHING PATTERN - Cardiovascular Exam Cardiovascular Exam: REGULAR RHYTHM - GI/Abdominal Exam GI & Abdominal Exam: Soft. absent: Guarding (Longitudinal surgical scar), Mass , Tenderness - Rectal Exam Rectal Exam: Deferred - Extremities Exam Extremities exam: Positive for: normal inspection. Negative for: calf tenderness - Back Exam Back exam: NORMAL INSPECTION - Neurological Exam Neurological exam: Alert, Oriented x3 - Psychiatric Exam Psychiatric exam: Normal Mood Results - Vital Signs Recent Vital Signs: Last Vital Signs Temp 97.8 F 09/18/16 07:49 Pulse 79 09/18/16 07:49 Resp 20 09/18/16 07:49 BP 128/89 09/18/16 07:49 Pulse Ox 99 09/18/16 07:49 - Labs Result Diagrams: 09/18/16 10:28 09/18/16 10:28 Labs: Laboratory Results - last 24 hr 09/17/16 09/17/16 09/17/16 12:36 14:23 14:23 WBC 8.8 RBC 3.81 Hgb 8.7 L Hct 28.5 L MCV 74.8 L MCH 22.9 L MCHC 30.6 L RDW 24.3 H Plt Count 266 MPV 7.6 Neut % (Auto) Lymph % (Auto) [place] % (Auto) Eos % (Auto) Baso % (Auto) Neut # Lymph # [place] # Eos # Baso # Sodium 138 Potassium 3.7 Chloride 106 Carbon Dioxide 23 Anion Gap 13 BUN 14 Creatinine 1.1 Est GFR ( Amer) > 60 Est GFR (Non-Af Amer) 50 POC Glucose (mg/dL) 129 H Random Glucose 115 H Calcium 8.1 L Phosphorus Magnesium 2.4 H Total Bilirubin 0.7 AST 155 H D ALT 44 Alkaline Phosphatase 77 Total Creatine Kinase 7790 H CK-MB (Mass) 85.8 H Troponin I, Quant < 0.0120 Total Protein 7.5 Albumin 3.6 Globulin 3.9 Albumin/Globulin Ratio 0.9 L 09/18/16 09/18/16 10:28 10:28 WBC 5.1 RBC 4.09 Hgb 9.3 L Hct 30.9 L MCV 75.5 L MCH 22.7 L MCHC 30.0 L RDW 24.8 H Plt Count 316 MPV 7.5 Neut % (Auto) 34.3 L Lymph % (Auto) 45.9 H [place] % (Auto) 10.9 H Eos % (Auto) 6.4 H Baso % (Auto) 2.5 H Neut # 1.8 Lymph # 2.4 [place] # 0.6 Eos # 0.3 Baso # 0.1 Sodium 137 Potassium 4.4 Chloride 106 Carbon Dioxide 24 Anion Gap 12 BUN 8 Creatinine 0.7 Est GFR ( Amer) > 60 Est GFR (Non-Af Amer) > 60 POC Glucose (mg/dL) Random Glucose 104 Calcium 8.5 L Phosphorus 3.5 Magnesium 1.9 Total Bilirubin 0.7 AST 169 H ALT 65 H D Alkaline Phosphatase 73 Total Creatine Kinase 6194 H CK-MB (Mass) Troponin I, Quant Total Protein 7.8 Albumin 3.8 Globulin 4.0 H Albumin/Globulin Ratio 1.0 Assessment & Plan (1) Gastroesophageal reflux Assessment and Plan: Stable on alf protonix Consider elective EGD Status: Chronic (2) Anemia Assessment and Plan: Chronic microcytic anemia. Probably familial. Check stool OB Outpatient colonoscopy Status: Chronic (3) COPD (chronic obstructive pulmonary disease) Assessment and Plan: managed by medical team Status: Chronic (4) Hepatitis C Assessment and Plan: Assess viral load, genotype, fibrosure and consider outpatient treatment if patient is appropriate candidate Status: Acute (5) High transaminase levels Assessment and Plan: rising while in hospital, likley drug induced. Discussed with Dr. Osborne, will stop Avelox and monitor LFTs Status: Acute (6) Diverticulosis large intestine w/o perforation or abscess w/bleeding Assessment and Plan: Chronic condition, stable. Had colonoscopy many years ago Status: Acute (7) Chronic constipation Assessment and Plan: Stable Miralax if needed Status: Chronic
[2016-09-18] MEDS: Moxifloxacin IV 400mg/250ml NS 400 MG/250 ML BAG IVPB SCH (11:44)
--- NOTE | 2016-09-18 11:54 | CP.PCM.PN ---
<Louisa Vivar - Last Filed: 09/18/16 12:50> Subjective - Date & Time of Evaluation Date of Evaluation: 09/18/16 Time of Evaluation: 10:00 - Subjective Subjective: Medicine Note for Dr. Osborne, Patient was seen and examined at bedside. She is a lot more awake and alert today. She continues to have jerky movement with her legs. She reported having back pain and bilateral leg pain. She stated she needs to have her medications resumed due to her pain. It was explained to her that we would resume her meds slowly due to the hypotensive episode she had yesterday due to us giving her medication and then her self medicating. ENT and GI was consulted due to a globus sensation. As per GI continue Protonix for GERD. Objective - Vital Signs/Intake and Output Vital Signs (last 24 hours): Temp Pulse Resp BP Pulse Ox 97.8 F 79 20 128/89 99 09/18/16 07:49 09/18/16 07:49 09/18/16 07:49 09/18/16 07:49 09/18/16 07:49 Intake and Output: 09/18/16 09/18/16 06:59 18:59 Intake Total 2290 Balance 2290 - Medications Medications: Current Medications Acetylcysteine (Acetylcysteine 20%) 4 ml INH RQ6 [facility] Last Admin: 09/18/16 08:04 Dose: 4 ml Albuterol/Ipratropium (Duoneb 3 Mg/0.5 Mg (3 Ml) Ud) 3 ml INH RQ6 [facility] Last Admin: 09/18/16 08:04 Dose: 3 ml Escitalopram Oxalate (Lexapro) 10 mg PO DAILY [facility] Last Admin: 09/18/16 09:13 Dose: 10 mg Guaifenesin (Mucinex La) 600 mg PO BID [facility] Last Admin: 09/18/16 09:14 Dose: 600 mg Hydroxyzine HCl (Atarax) 25 mg PO DAILY [facility] Last Admin: 09/18/16 09:15 Dose: 25 mg Moxifloxacin HCl (Avelox Iv 400mg/250ml Ns) 400 mg in 250 mls @ 167 mls/hr IVPB Q24H [facility] Last Admin: 09/17/16 09:53 Dose: 167 mls/hr Sodium Chloride (Sodium Chloride 0.9%) 1,000 mls @ 125 mls/hr IV .Q8H [facility] Last Admin: 09/18/16 09:05 Dose: 125 mls/hr Multivitamins/Minerals (Therapeutic-M Tab) 1 tab PO DAILY [facility] Last Admin: 09/18/16 09:13 Dose: 1 tab Oxycodone HCl (Oxycodone Immediate Release Tab) 5 mg PO Q6 PRN PRN Reason: Pain, severe (8-10) Last Admin: 09/18/16 09:03 Dose: 5 mg Pantoprazole Sodium (Protonix Ec Tab) 40 mg PO DAILY [facility] Last Admin: 09/18/16 09:13 Dose: 40 mg Potassium Chloride (K-Dur 20 Meq Er Tab) 20 meq PO DAILY [facility] Last Admin: 09/18/16 09:18 Dose: Not Given Simethicone (Mylicon Chew Tab) 80 mg PO TID [facility] Last Admin: 09/18/16 09:19 Dose: Not Given Sumatriptan Succinate (Imitrex Tab) 50 mg PO DAILY [facility] Last Admin: 09/16/16 11:21 Dose: 50 mg Topiramate (Topamax) 50 mg PO DAILY [facility] Last Admin: 09/18/16 09:14 Dose: 50 mg - Labs Labs: 09/18/16 10:28 09/18/16 10:28 - Constitutional Appears: No Acute Distress - Head Exam Head Exam: NORMAL INSPECTION, NORMOCEPHALIC - Neck Exam Additional comments: tracheostomy - Respiratory Exam Respiratory Exam: Clear to Ausculation Bilateral, NORMAL BREATHING PATTERN. absent: Decreased Breath Sounds, Wheezes - Cardiovascular Exam Cardiovascular Exam: RRR, +S1, +S2 - GI/Abdominal Exam GI & Abdominal Exam: Soft, Normal Bowel Sounds. absent: Distended, Tenderness - Extremities Exam Extremities Exam: Normal Inspection. absent: Pedal Edema, Tenderness - Neurological Exam Neurological Exam: Alert, Awake, Oriented x3 - Skin Skin Exam: Dry, Intact, Normal Color, Warm Assessment and Plan - Assessment and Plan (Free Text) Plan: Altered mental status * likely secondary to polypharmacy due to pain medication and blood pressure medication as stated above * Neurology (Dr. Reinoso) on board--> help appreciated * CT head X2: no acute findings * Mental status changed during the day, and improved this evening. * Held all pain medications and held blood pressure medications in light of [employer] * Patient's home medications secured by security following [employer] so patient does not take home meds and psych meds * Respideral held in light of prolonged QT--> ordered for repeat EKG for tomorrow morning Rhabdomyolysis * Patient started on IV fluids * will monitor CPK, 7790 --> 6194 * held all pain medications/blood pressure medications in light of [employer] * patient started on low dose Percocet 1 tab PO Q 6hour PRN pain Anemia: * H/H: 7.1/24.7 * Stool for occult blood pending * PICC line in place: transfused 2 units on 09/15/16 * Hgb: 9.3 Pneumonia: * Afebrile, tachycardiac * No leukocytosis * CXR- diffused interstitial lung markings, which may represent edema and or underlying infiltrates, patchy markngs in the right lower lung zone and medial right lung base suggestive of possible infiltrate * Urine legionella: negative, mycoplasma, strep pneumo ag ordered * Avelox 400 mg IV qdaily- stopped due to elevated LFTs Hx of Hepatitis C * Follow up labs Globus Sensation * ENT consulted- patient underwent flexible laryngoscopy - showed vocal cord paralysis - recommended GI consult * GI consulted - Dr. Patel- help appreciated - recommended continue Protonix Malfunctioned tracheostomy tube * Pulmonology, Dr. Mckeon, consulted. Help appreciated - patient requires home neb, home suction, speech therapy for speaking valve. * Case management has setup home nebulizer and home suctioning which was delivered to house; discussed with patient's daughter in law. * Speech therapy note: patient refused fenestrated trach * Humidified 02 * Mucinex 600 mg po tid, Mucomyst Q6H * Patient self care trach Asthma * Duonebs 6h estephania * Mucinex 600 mg po tid, Mucomyst Q6H HTN: * Blood pressure medications held in light of [employer] which included hypotension * Patient is currently on IV fluids * Home meds held: Metoprolol 25 mg po tid, Norvasc 10 mg po qdaily and HCTZ 25 mg po qdaily * Given 1 ampule glucagon during [employer] to reverse beta/calcium channel gonzalez Major Depressive Disorder: * held Risperdone given prolonged QT * Lexapro 10 mg po qdaily * Trazodone 100 mg po qdaily Neuropathic Pain: * held Neurontin 800 mg po TID Arthritis/Chronic Back pain: * restarted low dose percocet 1 tab PO Q 6hour PRN pain * hold Percocet 5/325 mg 2 tab po q6h prn and Flexeril 10 mg po TID in light of [employer] Prophylactic Measures: * DVT: SCDs, chemical anticoagulation held due to anemia, hemoglobin stable * GI: Protonix 40 mg po qdaily * Heart Healthy Diet DW Cb Cantu DO, PGY-1 <Kamla Osborne V - Last Filed: 09/18/16 17:37> Objective - Vital Signs/Intake and Output Vital Signs (last 24 hours): Temp Pulse Resp BP Pulse Ox 97.8 F 79 20 128/89 99 09/18/16 07:49 09/18/16 07:49 09/18/16 07:49 09/18/16 07:49 09/18/16 07:49 Intake and Output: 09/18/16 09/18/16 06:59 18:59 Intake Total 2290 Balance 2290 - Medications Medications: Current Medications Acetylcysteine (Acetylcysteine 20%) 4 ml INH RQ6 [facility] Last Admin: 09/18/16 13:27 Dose: 4 ml Albuterol/Ipratropium (Duoneb 3 Mg/0.5 Mg (3 Ml) Ud) 3 ml INH RQ6 [facility] Last Admin: 09/18/16 13:27 Dose: 3 ml Escitalopram Oxalate (Lexapro) 10 mg PO DAILY [facility] Last Admin: 09/18/16 09:13 Dose: 10 mg Guaifenesin (Mucinex La) 600 mg PO BID [facility] Last Admin: 09/18/16 09:14 Dose: 600 mg Hydroxyzine HCl (Atarax) 25 mg PO DAILY [facility] Last Admin: 09/18/16 09:15 Dose: 25 mg Sodium Chloride (Sodium Chloride 0.9%) 1,000 mls @ 125 mls/hr IV .Q8H [facility] Last Admin: 09/18/16 09:05 Dose: 125 mls/hr Multivitamins/Minerals (Therapeutic-M Tab) 1 tab PO DAILY [facility] Last Admin: 09/18/16 09:13 Dose: 1 tab Oxycodone HCl (Oxycodone Immediate Release Tab) 10 mg PO Q6 PRN PRN Reason: Pain, severe (8-10) Pantoprazole Sodium (Protonix Ec Tab) 40 mg PO DAILY [facility] Last Admin: 09/18/16 09:13 Dose: 40 mg Risperidone (Risperdal Tab) 3 mg PO QPM [facility] Simethicone (Mylicon Chew Tab) 80 mg PO TID [facility] Last Admin: 09/18/16 14:26 Dose: Not Given Topiramate (Topamax) 50 mg PO DAILY [facility] Last Admin: 09/18/16 09:14 Dose: 50 mg Trazodone HCl (Desyrel) 100 mg PO HS [facility] - Labs Labs: 09/18/16 10:28 09/18/16 10:28 Attending/Attestation - Attestation I have personally seen and examined this patient.: Yes I have fully participated in the care of the patient.: Yes I have reviewed all pertinent clinical information, including history, physical exam and plan: Yes Notes (Text): Patient seen, examined and case discussed with day-time resident. Patient reporting b/l lower leg pain and requesting for her percocet 2 tab PO q 6hours-->discussed with patient given her elevated liver function tests she is going to get oxycodone portion of the percocet. Patient is awake, alert, oriented X3, no acute distress, vocal. Patient restarted on Oxycodone 10mg PO Q 6hours PRN severe pain. Repeat EKG completed. QT is not prolonged. Will restart patient's home resperidal. Patient to continue IV fluids for rhabdomyolysis. Appreciate consult from neurology. Discussed with GI, no further intervention, continue Protonix for GERD, and patient has mild elevated LFTs, d/c Avelox; patient has completed 6 days to treat for pneumonia. Discontinued 1:1-->patient is back to her baseline, not combative. Assessment/Plan 1) Altered mental status * likely secondary to polypharmacy due to pain medication and blood pressure medication as stated above * Neurology (Dr. Reinoso) on board--> help appreciated * CT head X2: no acute findings * Mental status changed during the day, and improved this evening. * Held all pain medications and held blood pressure medications in light of [employer] * Patient's home medications secured by security following [employer] so patient does not take home meds and psych meds * Repeat EKG->Qt is normal-->resumed Resperidone 2) Rhabdomyolysis * Patient started on IV fluids * will monitor CPK * held all pain medications/blood pressure medications in light of [employer] 09/17 * patient restarted on oxycodone 10mg PO Q 6hours PRN severe pain 3) Anemia: * Stool for occult blood pending * PICC line in place: transfused 2 units on 09/15/16 * Hgb: 93 4) Pneumonia: * Afebrile, tachycardiac * No leukocytosis * CXR- diffused interstitial lung markings, which may represent edema and or underlying infiltrates, patchy markngs in the right lower lung zone and medial right lung base suggestive of possible infiltrate * Urine legionella: negative, mycoplasma, strep pneumo ag ordered * Avelox 400 mg IV qdaily completed 6 days; discontinued 5) Malfunctioned tracheostomy tube * Pulmonology, Dr. Mckeon, consulted. Help appreciated - patient requires home neb, home suction, speech therapy for speaking valve. * Case management has setup home nebulizer and home suctioning which was delivered to house; discussed with patient's daughter in law. * Speech therapy note: patient refused fenestrated trach * Humidified 02 * Mucinex 600 mg po tid, Mucomyst Q6H * Patient self care trach 6) Asthma * Duonebs 6h estephania * Mucinex 600 mg po tid, Mucomyst Q6H 7) HTN: * Blood pressure medications held in light of [employer] which included hypotension * Patient is currently on IV fluids * continue to monitor 8) Major Depressive Disorder: * Resumed Risperdone today * Lexapro 10 mg po qdaily * Trazodone 100 mg po qdaily 9) Neuropathic Pain: * held Neurontin 800 mg po TID 10)Arthritis/Chronic Back pain: * Restart Oxycodone 10mg PO Q 6hour PRN severe pain 11) Prophylactic Measures: * DVT: SCDs, chemical anticoagulation held due to anemia, hemoglobin stable * GI: Protonix 40 mg po qdaily * Heart Healthy Diet
--- NOTE | 2016-09-18 12:03 | CP.PCM.CON ---
History of Present Illness - History of Present Illness History of Present Illness: Mrs. Vidal is a 61-year-old woman with a past medical history of tracheostomy after cervical fusion led to vocal cord paralysis in 2007, asthma, Hep C, and migraine headaches, who was admitted for evaluation of her trach and was found to have pneumonia. According to nursing, the patient was having abnormal movements and was dropping objects. She then became confused and hypotensive in the 70's systolic range. She improved after Narcan and glucagon. It was suspected that she was supplementing her inpatient medications with her home meds, which include opiates. Today, the patient is back to baseline and has no complaints. Review of Systems - Review of Systems All systems: reviewed and no additional remarkable complaints except Past Patient History - Past Medical History & Family History Past Medical History?: Yes - Past Social History Smoking Status: Heavy Smoker > 10 Cigarettes Daily Alcohol: < 2 Drinks/Day Drugs: Denies Home Situation {Lives}: With Family - CARDIAC Hx Hypertension: Yes - PULMONARY Hx Asthma: Yes - NEUROLOGICAL Hx Seizures: No - HEMATOLOGICAL/ONCOLOGICAL Hx Anemia: Yes (chronic. Familial) Hx Hepatitis C: Yes (Untreated. Known x many years) Hx Human Immunodeficiency Virus (HIV): No - MUSCULOSKELETAL/RHEUMATOLOGICAL Hx Falls: No - GASTROINTESTINAL Hx Bowel Surgery: Yes Hx Diverticulitis: Yes Hx Gastritis: Yes - GENITOURINARY/GYNECOLOGICAL Hx Sexually Transmitted Disorders: No - PSYCHIATRIC Hx Depression: Yes Hx Substance Use: No - SURGICAL HISTORY Hx Hysterectomy: Yes Other/Comment: tracheostomy - ANESTHESIA Hx Anesthesia: Yes Meds Home Medications: Home Medication List Medication Instructions Recorded Confirmed Type Moxifloxacin [Avelox] 400 mg PO DAILY #5 tab 09/16/16 Rx Allergies/Adverse Reactions: Allergies Allergy/AdvReac Type Severity Reaction Status Date / Time codeine Allergy RASH Verified 09/13/16 04:41 ibuprofen Allergy RASH Verified 09/13/16 04:39 Penicillins Allergy RASH Verified 09/13/16 04:41 tramadol Allergy RASH Verified 09/13/16 04:41 - Medications Medications: Current Medications Acetylcysteine (Acetylcysteine 20%) 4 ml INH RQ6 [facility] Last Admin: 09/18/16 08:04 Dose: 4 ml Albuterol/Ipratropium (Duoneb 3 Mg/0.5 Mg (3 Ml) Ud) 3 ml INH RQ6 [facility] Last Admin: 09/18/16 08:04 Dose: 3 ml Escitalopram Oxalate (Lexapro) 10 mg PO DAILY [facility] Last Admin: 09/18/16 09:13 Dose: 10 mg Guaifenesin (Mucinex La) 600 mg PO BID [facility] Last Admin: 09/18/16 09:14 Dose: 600 mg Hydroxyzine HCl (Atarax) 25 mg PO DAILY [facility] Last Admin: 09/18/16 09:15 Dose: 25 mg Moxifloxacin HCl (Avelox Iv 400mg/250ml Ns) 400 mg in 250 mls @ 167 mls/hr IVPB Q24H [facility] Last Admin: 09/18/16 11:44 Dose: 167 mls/hr Sodium Chloride (Sodium Chloride 0.9%) 1,000 mls @ 125 mls/hr IV .Q8H [facility] Last Admin: 09/18/16 09:05 Dose: 125 mls/hr Multivitamins/Minerals (Therapeutic-M Tab) 1 tab PO DAILY [facility] Last Admin: 09/18/16 09:13 Dose: 1 tab Oxycodone HCl (Oxycodone Immediate Release Tab) 5 mg PO Q6 PRN PRN Reason: Pain, severe (8-10) Last Admin: 09/18/16 09:03 Dose: 5 mg Pantoprazole Sodium (Protonix Ec Tab) 40 mg PO DAILY [facility] Last Admin: 09/18/16 09:13 Dose: 40 mg Potassium Chloride (K-Dur 20 Meq Er Tab) 20 meq PO DAILY [facility] Last Admin: 09/18/16 09:18 Dose: Not Given Simethicone (Mylicon Chew Tab) 80 mg PO TID [facility] Last Admin: 09/18/16 09:19 Dose: Not Given Sumatriptan Succinate (Imitrex Tab) 50 mg PO DAILY [facility] Last Admin: 09/16/16 11:21 Dose: 50 mg Topiramate (Topamax) 50 mg PO DAILY [facility] Last Admin: 09/18/16 09:14 Dose: 50 mg Physical Exam - Constitutional Appears: Well - Head Exam Head Exam: ATRAUMATIC, NORMAL INSPECTION, NORMOCEPHALIC - Eye Exam Eye Exam: EOMI, Normal appearance, PERRL Pupil Exam: NORMAL ACCOMODATION, PERRL - ENT Exam Additional comments: trach C/D/I - Neck Exam Neck exam: Positive for: Normal Inspection - Respiratory Exam Respiratory Exam: Clear to Auscultation Bilateral, NORMAL BREATHING PATTERN - Cardiovascular Exam Cardiovascular Exam: REGULAR RHYTHM, +S1, +S2 - GI/Abdominal Exam GI & Abdominal Exam: Normal Bowel Sounds, Soft. absent: Tenderness - Rectal Exam Rectal Exam: Deferred - Extremities Exam Extremities exam: Positive for: normal inspection - Neurological Exam Neurological exam: Alert, CN II-XII Intact, Normal Gait, Oriented x3, Reflexes Normal - Expanded Neurological Exam Expanded Patient oriented to: person, place, time Cranial nerves: EOM's Intact: Normal, Facial Sensation: Normal Cerebellar Function: Finger to Nose: Normal Upper motor neuron: Babinski Sign: Normal Sensory exam: Lower Extremity 2 Point Discrimination: Normal, Lower Extremity Light Touch: Normal, Lower Extremity Pin Prick: Normal, Lower Extremity Temperature: Normal, Upper Extremity 2 Point Discrimination: Normal, Upper Extremity Light Touch: Normal, Upper Extremity Pin Prick: Normal, Upper Extremity Temperature: Normal Neuro motor strength exam: Left Upper Extremity: 5, Right Upper Extremity: 5, Left Lower Extremity: 5, Right Lower Extremity: 5 DTR: Achilles Tendon Left: 2+, Achilles Tendon Right: 2+, Bicep Left: 2+, Bicep Right: 2+, Brachioradialis Left: 2+, Brachioradialis Right: 2+, Patellar Left: 2 +, Patellar Right: 2+, Tricep Left: 2+, Tricep Right: 2+ - Psychiatric Exam Psychiatric exam: Normal Affect, Normal Mood - Skin Skin Exam: Dry, Intact, Normal Color, Warm Results - Vital Signs Recent Vital Signs: Last Vital Signs Temp 97.8 F 09/18/16 07:49 Pulse 79 09/18/16 07:49 Resp 20 09/18/16 07:49 BP 128/89 09/18/16 07:49 Pulse Ox 99 09/18/16 07:49 - Labs Result Diagrams: 09/18/16 10:28 09/18/16 10:28 Labs: Laboratory Results - last 24 hr 09/17/16 09/17/16 09/17/16 12:36 14:23 14:23 WBC 8.8 RBC 3.81 Hgb 8.7 L Hct 28.5 L MCV 74.8 L MCH 22.9 L MCHC 30.6 L RDW 24.3 H Plt Count 266 MPV 7.6 Neut % (Auto) Lymph % (Auto) Edwards % (Auto) Eos % (Auto) Baso % (Auto) Neut # Lymph # Edwards # Eos # Baso # Sodium 138 Potassium 3.7 Chloride 106 Carbon Dioxide 23 Anion Gap 13 BUN 14 Creatinine 1.1 Est GFR ( Amer) > 60 Est GFR (Non-Af Amer) 50 POC Glucose (mg/dL) 129 H Random Glucose 115 H Calcium 8.1 L Phosphorus Magnesium 2.4 H Total Bilirubin 0.7 AST 155 H D ALT 44 Alkaline Phosphatase 77 Total Creatine Kinase 7790 H CK-MB (Mass) 85.8 H Troponin I, Quant < 0.0120 Total Protein 7.5 Albumin 3.6 Globulin 3.9 Albumin/Globulin Ratio 0.9 L 09/18/16 09/18/16 10:28 10:28 WBC 5.1 RBC 4.09 Hgb 9.3 L Hct 30.9 L MCV 75.5 L MCH 22.7 L MCHC 30.0 L RDW 24.8 H Plt Count 316 MPV 7.5 Neut % (Auto) 34.3 L Lymph % (Auto) 45.9 H Edwards % (Auto) 10.9 H Eos % (Auto) 6.4 H Baso % (Auto) 2.5 H Neut # 1.8 Lymph # 2.4 Edwards # 0.6 Eos # 0.3 Baso # 0.1 Sodium 137 Potassium 4.4 Chloride 106 Carbon Dioxide 24 Anion Gap 12 BUN 8 Creatinine 0.7 Est GFR ( Amer) > 60 Est GFR (Non-Af Amer) > 60 POC Glucose (mg/dL) Random Glucose 104 Calcium 8.5 L Phosphorus 3.5 Magnesium 1.9 Total Bilirubin 0.7 AST 169 H ALT 65 H D Alkaline Phosphatase 73 Total Creatine Kinase 6194 H CK-MB (Mass) Troponin I, Quant Total Protein 7.8 Albumin 3.8 Globulin 4.0 H Albumin/Globulin Ratio 1.0 - Imaging and Cardiology CT scan - head Status: Image reviewed by me, Report reviewed by me (No acute findings. ) Assessment & Plan (1) Encephalopathy Assessment and Plan: Resolved and was likely due to opiate effect and overdose. Currently, she is back to baseline and has no complaints. Continue conservative management, PT/ OT if needed. Status: Acute
[2016-09-18] MEDS: oxyCODONE 10 mg Immediate Release Tab PO PRN (18:48)
[2016-09-19] MEDS: oxyCODONE 10 mg Immediate Release Tab PO PRN ×4 (00:48→21:07)
--- NOTE | 2016-09-19 00:48 | CP.PCM.PN ---
<Nikita Taylor - Last Filed: 09/19/16 00:57> Subjective - Date & Time of Evaluation Date of Evaluation: 09/19/16 Time of Evaluation: 12:45 - Subjective Subjective: Medicine progress note. Attending: Dr. Osborne Pt seen and examined at bedside. No acute distress. No events so far overnight. Denies fevers, chills, vomiting, diarrhea, chest pain, sob. GI and ENT workup in progress. Stool occult blood and hep C workup pending. Pt had laryngoscopy which showed non-mobile vocal cords. Objective - Vital Signs/Intake and Output Vital Signs (last 24 hours): Temp Pulse Resp BP Pulse Ox 97.8 F 90 20 126/82 99 09/18/16 16:15 09/18/16 16:15 09/18/16 16:00 09/18/16 16:00 09/18/16 16:00 Intake and Output: 09/18/16 09/19/16 18:59 06:59 Intake Total 1500 1400 Balance 1500 1400 - Medications Medications: Current Medications Acetylcysteine (Acetylcysteine 20%) 4 ml INH RQ6 [facility] Last Admin: 09/18/16 19:15 Dose: 4 ml Albuterol/Ipratropium (Duoneb 3 Mg/0.5 Mg (3 Ml) Ud) 3 ml INH RQ6 [facility] Last Admin: 09/18/16 19:15 Dose: 3 ml Escitalopram Oxalate (Lexapro) 10 mg PO DAILY [facility] Last Admin: 09/18/16 09:13 Dose: 10 mg Guaifenesin (Mucinex La) 600 mg PO BID [facility] Last Admin: 09/18/16 18:42 Dose: 600 mg Hydroxyzine HCl (Atarax) 25 mg PO DAILY [facility] Last Admin: 09/18/16 09:15 Dose: 25 mg Sodium Chloride (Sodium Chloride 0.9%) 1,000 mls @ 125 mls/hr IV .Q8H [facility] Last Admin: 09/18/16 21:26 Dose: 125 mls/hr Multivitamins/Minerals (Therapeutic-M Tab) 1 tab PO DAILY [facility] Last Admin: 09/18/16 09:13 Dose: 1 tab Oxycodone HCl (Oxycodone Immediate Release Tab) 10 mg PO Q6 PRN PRN Reason: Pain, severe (8-10) Last Admin: 09/18/16 18:48 Dose: 10 mg Pantoprazole Sodium (Protonix Ec Tab) 40 mg PO DAILY [facility] Last Admin: 09/18/16 09:13 Dose: 40 mg Risperidone (Risperdal Tab) 3 mg PO QPM [facility] Last Admin: 09/18/16 20:50 Dose: 3 mg Simethicone (Mylicon Chew Tab) 80 mg PO TID [facility] Last Admin: 09/18/16 18:44 Dose: 80 mg Topiramate (Topamax) 50 mg PO DAILY [facility] Last Admin: 09/18/16 09:14 Dose: 50 mg Trazodone HCl (Desyrel) 100 mg PO HS [facility] Last Admin: 09/18/16 21:20 Dose: 100 mg - Labs Labs: 09/18/16 10:28 09/18/16 10:28 - Constitutional Appears: Non-toxic, No Acute Distress - Head Exam Head Exam: ATRAUMATIC, NORMAL INSPECTION, NORMOCEPHALIC - Eye Exam Eye Exam: EOMI - ENT Exam ENT Exam: Mucous Membranes Moist - Neck Exam Neck Exam: absent: Normal Inspection Additional comments: trach is in place - Respiratory Exam Respiratory Exam: NORMAL BREATHING PATTERN. absent: Respiratory Distress - Cardiovascular Exam Cardiovascular Exam: +S1, +S2 - GI/Abdominal Exam GI & Abdominal Exam: Soft, Normal Bowel Sounds. absent: Tenderness - Extremities Exam Extremities Exam: Full ROM, Normal Inspection - Neurological Exam Neurological Exam: Alert, Awake, Oriented x3 - Psychiatric Exam Psychiatric exam: Normal Affect, Normal Mood - Skin Skin Exam: Dry, Intact, Normal Color, Warm Assessment and Plan - Assessment and Plan (Free Text) Assessment: 1) Altered mental status * likely secondary to polypharmacy due to pain medication and blood pressure medication * Neurology (Dr. Reinoso) on board--> help appreciated * CT head X2: no acute findings * Mental status changed recently>> currently pt is awake, alert, oriented x 3 * Held all pain medications and held blood pressure medications in light of CUT OUT MARKER * Patient's home medications secured by security following CUT OUT MARKER so patient does not take home meds and psych meds * Repeat EKG->Qt is normal-->resumed Risperidone 3 mg PO q PM 2) Rhabdomyolysis * Patient started on IV fluids>>> continue NS 125 cc/hr * will monitor CPK * held all pain medications/blood pressure medications in light of CUT OUT MARKER 09/17 * patient restarted on oxycodone 10mg PO Q 6hours PRN severe pain 2.5. Globus sensation -GI consult. Dr. Patel. recs appreciated -workup in progress -ENT consult. Dr. Quintanilla. work up in progress. -Laryngoscopy showed non-mobile vocal cords. 3) Anemia: * Stool for occult blood pending * PICC line in place: transfused 2 units on 09/15/16 * Hgb: 9.3 on 09/18>>> will recheck morning of 09/19 4) Pneumonia: * Afebrile. HR wnl * No leukocytosis * CXR- diffused interstitial lung markings, which may represent edema and or underlying infiltrates, patchy markings in the right lower lung zone and medial right lung base suggestive of possible infiltrate * Urine legionella: negative, mycoplasma IGM negative; strep pneumo ag ordered * Avelox 400 mg IV qdaily completed 6 days; discontinued 5) Malfunctioned tracheostomy tube * Pulmonology, Dr. Mckeon, consulted. Help appreciated - patient requires home neb, home suction, speech therapy for speaking valve. * Case management has setup home nebulizer and home suctioning which was delivered to house; discussed with patient's daughter in law. * Speech therapy note: patient refused fenestrated trach * Humidified 02 * Mucinex 600 mg po BID, Mucomyst Q6H * Patient self care trach 6) Asthma * Duonebs 6h estephania * Mucinex 600 mg po BID, Mucomyst Q6H 7) HTN: * Blood pressure medications held in light of CUT OUT MARKER which included hypotension * Patient is currently on IV fluids * continue to monitor 8) Major Depressive Disorder: * Resumed Risperdone today * Lexapro 10 mg po daily * Trazodone 100 mg po qHS 9) Neuropathic Pain: * held Neurontin 800 mg po TID 10)Arthritis/Chronic Back pain: * Restart Oxycodone 10mg PO Q 6hour PRN severe pain 11) Prophylactic Measures: * DVT: SCDs, chemical anticoagulation held due to anemia, hemoglobin stable * GI: Protonix 40 mg po qdaily * Heart Healthy Diet * * to be discussed with Dr. Osborne <Kamla Osborne V - Last Filed: 09/19/16 14:50> Objective - Vital Signs/Intake and Output Vital Signs (last 24 hours): Temp Pulse Resp BP Pulse Ox 97.8 F 90 20 126/82 99 09/18/16 16:15 09/18/16 16:15 09/18/16 16:00 09/18/16 16:00 09/18/16 16:00 Intake and Output: 09/19/16 09/19/16 06:59 18:59 Intake Total 2760 Balance 2760 - Medications Medications: Current Medications Acetylcysteine (Acetylcysteine 20%) 4 ml INH RQ6 [facility] Last Admin: 09/19/16 13:49 Dose: 4 ml Albuterol/Ipratropium (Duoneb 3 Mg/0.5 Mg (3 Ml) Ud) 3 ml INH RQ6 [facility] Last Admin: 09/19/16 13:49 Dose: 3 ml Escitalopram Oxalate (Lexapro) 10 mg PO DAILY [facility] Last Admin: 09/19/16 11:46 Dose: 10 mg Gabapentin (Neurontin) 300 mg PO TID [facility] Guaifenesin (Mucinex La) 600 mg PO BID [facility] Last Admin: 09/19/16 11:45 Dose: 600 mg Hydroxyzine HCl (Atarax) 25 mg PO DAILY [facility] Last Admin: 09/19/16 11:45 Dose: 25 mg Sodium Chloride (Sodium Chloride 0.9%) 1,000 mls @ 125 mls/hr IV .Q8H [facility] Last Admin: 09/19/16 13:29 Dose: Not Given Multivitamins/Minerals (Therapeutic-M Tab) 1 tab PO DAILY [facility] Last Admin: 09/19/16 11:46 Dose: 1 tab Oxycodone HCl (Oxycodone Immediate Release Tab) 10 mg PO Q6 PRN PRN Reason: Pain, severe (8-10) Last Admin: 09/19/16 13:24 Dose: 10 mg Pantoprazole Sodium (Protonix Ec Tab) 40 mg PO DAILY [facility] Last Admin: 09/19/16 11:46 Dose: 40 mg Risperidone (Risperdal Tab) 3 mg PO QPM [facility] Last Admin: 09/18/16 20:50 Dose: 3 mg Simethicone (Mylicon Chew Tab) 80 mg PO TID [facility] Last Admin: 09/19/16 13:28 Dose: Not Given Topiramate (Topamax) 50 mg PO DAILY [facility] Last Admin: 09/19/16 11:45 Dose: 50 mg Trazodone HCl (Desyrel) 100 mg PO HS [facility] Last Admin: 09/18/16 21:20 Dose: 100 mg - Labs Labs: 09/19/16 07:46 09/19/16 07:46 Attending/Attestation - Attestation I have personally seen and examined this patient.: Yes I have fully participated in the care of the patient.: Yes I have reviewed all pertinent clinical information, including history, physical exam and plan: Yes Notes (Text): Patient seen, examined and case discussed with day-time resident. Patient reporting b/l lower leg pain today, reports better compared to yesterday. CPK trending down. Will restart low dose Gabapentin 300mg PO TID ( Home dose: 800mg PO TID) and observe during the date. Liver function tests improving. Patient is awake, alert, oriented X3, no acute distress, vocal. Patient to continue IV fluids for rhabdomyolysis. Assessment/Plan 1) Altered mental status * likely secondary to polypharmacy due to pain medication and blood pressure medication as stated above * Neurology (Dr. Reinoso) on board--> help appreciated * CT head X2: no acute findings * Mental status changed during the day, and improved this evening. * Held all pain medications and held blood pressure medications in light of CUT OUT MARKER * Patient's home medications secured by security following CUT OUT MARKER so patient does not take home meds and psych meds * Repeat EKG->Qt is normal-->resumed Resperidone 2) Rhabdomyolysis * Patient started on IV fluids * will monitor CPK * held all pain medications/blood pressure medications in light of CUT OUT MARKER 09/17 * c/w oxycodone 10mg PO Q 6hours PRN severe pain * Restart low dose Gabapentin 300mg PO TID 3) Anemia: * Stool for occult blood pending * PICC line in place: transfused 2 units on 09/15/16 * Hgb: 8.7 4) Pneumonia: * Afebrile, tachycardiac * No leukocytosis * CXR- diffused interstitial lung markings, which may represent edema and or underlying infiltrates, patchy markngs in the right lower lung zone and medial right lung base suggestive of possible infiltrate * Urine legionella: negative, mycoplasma, strep pneumo ag ordered * Avelox 400 mg IV qdaily completed 6 days; discontinued * Trach: Staph Aureus 5) Malfunctioned tracheostomy tube * Pulmonology, Dr. Mckeon, consulted. Help appreciated - patient requires home neb, home suction, speech therapy for speaking valve. * Case management has setup home nebulizer and home suctioning which was delivered to house; discussed with patient's daughter in law. * Speech therapy note: patient refused fenestrated trach * Humidified 02 * Mucinex 600 mg po tid, Mucomyst Q6H * Patient self care trach 6) Asthma * Duonebs 6h estephania * Mucinex 600 mg po tid, Mucomyst Q6H 7) HTN: * Blood pressure medications held in light of CUT OUT MARKER which included hypotension * Patient is currently on IV fluids * continue to monitor 8) Major Depressive Disorder: * Respirdal 3mg POqM * Lexapro 10 mg po qdaily * Trazodone 100 mg po qdaily 9) Neuropathic Pain: * Restart Gabapentin 300mg PO TID and titrate up 10)Arthritis/Chronic Back pain: * Restart Oxycodone 10mg PO Q 6hour PRN severe pain 11) Prophylactic Measures: * DVT: SCDs, chemical anticoagulation held due to anemia, hemoglobin stable * GI: Protonix 40 mg po qdaily * Heart Healthy Diet Disposition * Continue IV fluids and monitor CPK in light of rhabdo
[2016-09-19] MEDS: Sodium Chloride 0.9% 1,000 ML IV SCH ×5 (00:53→22:35)
[2016-09-19] MEDS: Albuterol-Ipratrop 3 mg / 0.5 (3 ml) UD INH SCH ×4 (01:48→19:11)
[2016-09-19] MEDS: Acetylcysteine 20% Inhal Soln (4ml) INH SCH ×4 (01:48→19:11)
[2016-09-19 08:04] LABS: CHLORIDE 108 mmol/L (98-107); POTASSIUM 3.6 mmol/L (3.6-5.2); SODIUM 140 mmol/L (132-148)
[2016-09-19 08:06] LABS: ALB/GLOB RATIO 0.9 (1.0-2.1); ALKALINE PHOSPHATASE 69 U/L (38-126); ALT/SGPT 54 U/L (9-52); AST/SGOT 105 U/L (14-36); BILIRUBIN,TOTAL 0.5 mg/dL (0.2-1.3); BLOOD UREA NITROGEN 8 mg/dL (7-17); CARBON DIOXIDE 26 mmol/L (22-30); GFR AFRICAN-AMERICAN > 60; GLUCOSE,RANDOM 65 mg/dL (65-105); TOTAL PROTEIN 6.7 g/dL (6.3-8.3)
[2016-09-19 08:07] LABS: CALCIUM 8.1 mg/dl (8.6-10.4); MAGNESIUM 2.1 mg/dL (1.6-2.3); PHOSPHOROUS 3.4 mg/dL (2.5-4.5)
[2016-09-19 08:10] LABS: BASO # 0.1 K/uL (0.0-0.2); BASO % 1.3 % (0.0-2.0); EOS # 0.3 K/uL (0.0-0.7); EOS % 5.2 % (0.0-4.0); HEMATOCRIT 27.3 % (34.0-47.0); LYMPH # 1.9 K/uL (1.0-4.3); MEAN CELL VOLUME 75.4 fL (81.0-99.0); MEAN CORPUSCULAR HEMOGLOBIN 23.1 pg (27.0-31.0); MEAN CORPUSCULAR HGB CONC 30.7 g/dL (33.0-37.0); MEAN PLATELET VOLUME 7.7 fL (7.2-11.7); MONO # 0.8 K/uL (0.0-0.8); MONO % 14.2 % (0.0-10.0); NRBC % 0.1 % (0.0-2.0); RED CELL DISTRIBUTION WIDTH 25.5 % (11.5-14.5); WHITE BLOOD COUNT 5.6 K/uL (4.8-10.8)
--- NOTE | 2016-09-19 10:50 | CP.PCM.PN ---
Subjective - Date & Time of Evaluation Date of Evaluation: 09/19/16 Time of Evaluation: 10:47 - Subjective Subjective: F/U reflux and elev LFTs Pt reports phlegm via trache. Reports occasional RAYRAY , HAs had abdom surgeries. Reports BMs always have been 3 times per week. Denies RB, melena, CP, SOB, fever, chills, ALBARADO, SZ, hematuria Objective - Vital Signs/Intake and Output Vital Signs (last 24 hours): Temp Pulse Resp BP Pulse Ox 97.8 F 90 20 126/82 99 09/18/16 16:15 09/18/16 16:15 09/18/16 16:00 09/18/16 16:00 09/18/16 16:00 Intake and Output: 09/19/16 09/19/16 06:59 18:59 Intake Total 2760 Balance 2760 - Medications Medications: Current Medications Acetylcysteine (Acetylcysteine 20%) 4 ml INH RQ6 [facility] Last Admin: 09/19/16 09:49 Dose: Not Given Albuterol/Ipratropium (Duoneb 3 Mg/0.5 Mg (3 Ml) Ud) 3 ml INH RQ6 [facility] Last Admin: 09/19/16 09:50 Dose: Not Given Escitalopram Oxalate (Lexapro) 10 mg PO DAILY [facility] Last Admin: 09/18/16 09:13 Dose: 10 mg Guaifenesin (Mucinex La) 600 mg PO BID [facility] Last Admin: 09/18/16 18:42 Dose: 600 mg Hydroxyzine HCl (Atarax) 25 mg PO DAILY [facility] Last Admin: 09/18/16 09:15 Dose: 25 mg Sodium Chloride (Sodium Chloride 0.9%) 1,000 mls @ 125 mls/hr IV .Q8H [facility] Last Admin: 09/19/16 06:54 Dose: 125 mls/hr Multivitamins/Minerals (Therapeutic-M Tab) 1 tab PO DAILY [facility] Last Admin: 09/18/16 09:13 Dose: 1 tab Oxycodone HCl (Oxycodone Immediate Release Tab) 10 mg PO Q6 PRN PRN Reason: Pain, severe (8-10) Last Admin: 09/19/16 06:55 Dose: 10 mg Pantoprazole Sodium (Protonix Ec Tab) 40 mg PO DAILY [facility] Last Admin: 09/18/16 09:13 Dose: 40 mg Risperidone (Risperdal Tab) 3 mg PO QPM [facility] Last Admin: 09/18/16 20:50 Dose: 3 mg Simethicone (Mylicon Chew Tab) 80 mg PO TID [facility] Last Admin: 09/18/16 18:44 Dose: 80 mg Topiramate (Topamax) 50 mg PO DAILY [facility] Last Admin: 09/18/16 09:14 Dose: 50 mg Trazodone HCl (Desyrel) 100 mg PO HS [facility] Last Admin: 09/18/16 21:20 Dose: 100 mg - Labs Labs: 09/19/16 07:46 09/19/16 07:46 - Constitutional Appears: Well - Neck Exam Additional comments: trache - Respiratory Exam Respiratory Exam: Clear to Ausculation Bilateral - Cardiovascular Exam Cardiovascular Exam: RRR - GI/Abdominal Exam GI & Abdominal Exam: Soft, Normal Bowel Sounds. absent: Guarding, Tenderness, Mass, Rebound Additional comments: scars - Extremities Exam Extremities Exam: absent: Pedal Edema - Neurological Exam Neurological Exam: Alert, Oriented x3 Assessment and Plan (1) Hepatitis C Assessment & Plan: Chronic. Not trreated. Discussed risk of cirrhosis and liver cancer and risk of transmission. Discussed treatments and options. Status: Acute (2) High transaminase levels Assessment & Plan: Coming back down. ocnsider HCV and meds. 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 Status: Acute
[2016-09-19] MEDS: guaiFENesin 600 mg ER Tab PO SCH ×2 (11:45→17:45)
[2016-09-19] MEDS: Pantoprazole 40 mg EC Tab PO SCH (11:46)
[2016-09-19] MEDS: Multivitamin With Minerals Tab PO SCH (11:46)
[2016-09-19] MEDS: Simethicone 80 mg Chewtab PO SCH ×3 (11:46→17:49)
[2016-09-20] MEDS: Sodium Chloride 0.9% 1,000 ML IV SCH ×3 (00:30→16:00)
[2016-09-20] MEDS: Acetylcysteine 20% Inhal Soln (4ml) INH SCH ×4 (01:08→19:33)
[2016-09-20] MEDS: Albuterol-Ipratrop 3 mg / 0.5 (3 ml) UD INH SCH ×4 (01:08→19:33)
[2016-09-20] MEDS: oxyCODONE 10 mg Immediate Release Tab PO PRN ×4 (03:33→22:42)
[2016-09-20 08:11] LABS: HEMATOCRIT 27.6 % (34.0-47.0); MEAN CELL VOLUME 74.9 fL (81.0-99.0); MEAN CORPUSCULAR HEMOGLOBIN 23.3 pg (27.0-31.0); MEAN CORPUSCULAR HGB CONC 31.1 g/dL (33.0-37.0); MEAN PLATELET VOLUME 7.6 fL (7.2-11.7); RED CELL DISTRIBUTION WIDTH 26.3 % (11.5-14.5)
[2016-09-20 08:12] LABS: CHLORIDE 106 mmol/L (98-107); SODIUM 139 mmol/L (132-148)
[2016-09-20 08:13] LABS: POTASSIUM 3.6 mmol/L (3.6-5.2)
[2016-09-20 08:14] LABS: GFR AFRICAN-AMERICAN > 60
[2016-09-20 08:15] LABS: ALB/GLOB RATIO 0.9 (1.0-2.1); ALKALINE PHOSPHATASE 86 U/L (38-126); ALT/SGPT 53 U/L (9-52); AST/SGOT 79 U/L (14-36); BILIRUBIN,TOTAL 0.5 mg/dL (0.2-1.3); BLOOD UREA NITROGEN 9 mg/dL (7-17); CALCIUM 8.3 mg/dl (8.6-10.4); CARBON DIOXIDE 23 mmol/L (22-30); GLUCOSE,RANDOM 78 mg/dL (65-105); TOTAL PROTEIN 6.7 g/dL (6.3-8.3)
[2016-09-20] MEDS: Simethicone 80 mg Chewtab PO SCH ×3 (09:14→17:33)
[2016-09-20] MEDS: Multivitamin With Minerals Tab PO SCH (09:59)
[2016-09-20] MEDS: Pantoprazole 40 mg EC Tab PO SCH (09:59)
[2016-09-20] MEDS: guaiFENesin 600 mg ER Tab PO SCH ×2 (09:59→17:33)
[2016-09-20 12:29] LABS: EOS # 0.3 K/uL (0.0-0.7); MONO # 0.5 K/uL (0.0-0.8)
--- NOTE | 2016-09-20 14:38 | CP.PCM.PN ---
Addendum entered and electronically signed by Linnea Saini DO 09/20/16 15: 00: 10)Arthritis/Chronic Back pain: * Oxycodone 10mg PO Q 6hour PRN restarted for severe pain * Flexeril 5 mg PO HS restarted today. Original Note: <Linnea Saini - Last Filed: 09/20/16 14:32> Subjective - Date & Time of Evaluation Date of Evaluation: 09/20/16 Time of Evaluation: 09:00 - Subjective Subjective: Medicine Progress Note- Dr. Osborne's Service: Patient seen and examined at bedside this AM. Patient reports feeling well today. She is "just tired". Denies chest pain, palpitations, sob, fevers, chills , nausea, vomiting. Admits to left inner calf pain that is "worsening". No other complaints at this time. Objective - Vital Signs/Intake and Output Vital Signs (last 24 hours): Temp Pulse Resp BP Pulse Ox 98 F 97 H 20 131/83 97 09/20/16 07:40 09/20/16 07:40 09/20/16 07:40 09/20/16 07:40 09/20/16 07:40 Intake and Output: 09/20/16 09/20/16 06:59 18:59 Intake Total 490 Balance 490 - Medications Medications: Current Medications Acetylcysteine (Acetylcysteine 20%) 4 ml INH RQ6 [facility] Last Admin: 09/20/16 13:39 Dose: Not Given Albuterol/Ipratropium (Duoneb 3 Mg/0.5 Mg (3 Ml) Ud) 3 ml INH RQ6 [facility] Last Admin: 09/20/16 13:39 Dose: Not Given Cyclobenzaprine HCl (Flexeril) 5 mg PO HS [facility] Enoxaparin Sodium (Lovenox) 40 mg SC DAILY [facility] Escitalopram Oxalate (Lexapro) 10 mg PO DAILY [facility] Last Admin: 09/20/16 09:59 Dose: 10 mg Gabapentin (Neurontin) 600 mg PO TID [facility] Last Admin: 09/20/16 13:13 Dose: 600 mg Guaifenesin (Mucinex La) 600 mg PO BID [facility] Last Admin: 09/20/16 09:59 Dose: 600 mg Hydroxyzine HCl (Atarax) 25 mg PO DAILY [facility] Last Admin: 09/20/16 09:59 Dose: 25 mg Sodium Chloride (Sodium Chloride 0.9%) 1,000 mls @ 125 mls/hr IV .Q8H [facility] Last Admin: 09/20/16 00:30 Dose: Not Given Multivitamins/Minerals (Therapeutic-M Tab) 1 tab PO DAILY [facility] Last Admin: 09/20/16 09:59 Dose: 1 tab Oxycodone HCl (Oxycodone Immediate Release Tab) 10 mg PO Q6 PRN PRN Reason: Pain, severe (8-10) Last Admin: 09/20/16 09:58 Dose: 10 mg Pantoprazole Sodium (Protonix Ec Tab) 40 mg PO DAILY [facility] Last Admin: 09/20/16 09:59 Dose: 40 mg Risperidone (Risperdal Tab) 3 mg PO QPM [facility] Last Admin: 09/19/16 22:35 Dose: 3 mg Simethicone (Mylicon Chew Tab) 80 mg PO TID [facility] Last Admin: 09/20/16 13:14 Dose: Not Given Topiramate (Topamax) 50 mg PO DAILY [facility] Last Admin: 09/20/16 09:59 Dose: 50 mg Trazodone HCl (Desyrel) 100 mg PO HS [facility] Last Admin: 09/19/16 22:35 Dose: 100 mg - Labs Labs: 09/20/16 07:59 09/20/16 07:59 - Constitutional Appears: No Acute Distress - Head Exam Head Exam: NORMAL INSPECTION, NORMOCEPHALIC - Eye Exam Eye Exam: EOMI, Normal appearance - ENT Exam ENT Exam: Mucous Membranes Moist - Neck Exam Neck Exam: Full ROM - Respiratory Exam Respiratory Exam: Clear to Ausculation Bilateral, NORMAL BREATHING PATTERN - Cardiovascular Exam Cardiovascular Exam: REGULAR RHYTHM, +S1, +S2, Murmur - GI/Abdominal Exam GI & Abdominal Exam: Soft. absent: Distended, Tenderness - Extremities Exam Extremities Exam: Full ROM, Tenderness (Right inner calf point tenderness). absent: Pedal Edema - Back Exam Back Exam: NORMAL INSPECTION - Neurological Exam Neurological Exam: Alert, Awake, Oriented x3 Assessment and Plan - Assessment and Plan (Free Text) Assessment: 1) Altered mental status Neurology (Dr. Reinoso) on board- help appreciated New onset 09/16/16. CT head X2: no acute findings. Found to be hypotensive 77/60's on 09/16/16. Likely secondary to polypharmacy since patient taking own medications plus hospital administered. Repeat EKG-showed normal Qtc. As per Dr. Reinoso, likely due to opiate effect and overdose. Now resolved. Monitor mental status. 2) Rhabdomyolysis * IV fluids NS at 125 cc/hr * 7790 on09/17/16. 1228 today. Will monitor CPK. Goal for discharge is level < 500. * oxycodone 10mg PO Q 6hours PRN resumed for severe pain * Gabapentin 300mg PO TID resumed and increased to 600 mg PO TID 3) Anemia: * Stool for occult blood pending * PICC line in place: transfused 2 units on 09/15/16 * Hgb: 8.6 this AM 4) Pneumonia: * Afebrile. No leukocytosis * Urine legionella: negative, mycoplasma- negative. * strep pneumo ag ordered- pending * Trach+ for Staph Aureus * Avelox 400 mg IV qdaily completed 6 days; discontinued CXR- diffused interstitial lung markings, which may represent edema and or underlying infiltrates, patchy markngs in the right lower lung zone and medial right lung base suggestive of possible infiltrate 5) Malfunctioned tracheostomy tube * Pulmonology, Dr. Mckeon, consulted. Help appreciated * As per pulm, patient requires home neb, home suction, speech therapy for speaking valve. * Pt refused fenestrated trach as per chart * Mucinex 600 mg po tid * Mucomyst Q6H 6) Asthma * Duonebs 6h estephania * Mucinex 600 mg po tid * Mucomyst Q6H 7) HTN: * Blood pressure medications held after hypontension * Continue IV fluids * Will add medications as needed 8) Major Depressive Disorder: * Respirdal 3mg POqM * Lexapro 10 mg po qdaily * Trazodone 100 mg po qdaily 9) Neuropathic Pain: * Gabapentin 300mg PO TID increased to 600 mg PO TID 10)Arthritis/Chronic Back pain: * Oxycodone 10mg PO Q 6hour PRN restarted for severe pain 11) Globus Sensation * ENT consulted- patient underwent flexible laryngoscopy - showed vocal cord paralysis - recommended GI consult * GI consulted - Dr. Patel- help appreciated - recommended continue Protonix for GERD. 12) Hepatitis C * GI consulted - Dr. Patel- help appreciated * Chronic. Not treated. Elevated LFTs, improving. * Dr. Tapia discussed risk of cirrhosis and liver cancer and risk of transmission as well as treatments options with patient. 13) Prophylactic Measures: * SCDs * chemical anticoagulation held due to anemia, hemoglobin stable * Protonix 40 mg po daily <Kamla Osbrone V - Last Filed: 09/20/16 23:28> Objective - Vital Signs/Intake and Output Vital Signs (last 24 hours): Temp Pulse Resp BP Pulse Ox 97.9 F 88 20 133/84 98 09/20/16 15:00 09/20/16 15:00 09/20/16 15:00 09/20/16 15:00 09/20/16 15:00 Intake and Output: 09/20/16 09/21/16 18:59 06:59 Intake Total 1750 Balance 1750 - Medications Medications: Current Medications Acetylcysteine (Acetylcysteine 20%) 4 ml INH RQ6 [facility] Last Admin: 09/20/16 19:33 Dose: 4 ml Albuterol/Ipratropium (Duoneb 3 Mg/0.5 Mg (3 Ml) Ud) 3 ml INH RQ6 [facility] Last Admin: 09/20/16 19:33 Dose: 3 ml Cyclobenzaprine HCl (Flexeril) 5 mg PO HS [facility] Last Admin: 09/20/16 21:47 Dose: 5 mg Enoxaparin Sodium (Lovenox) 40 mg SC DAILY [facility] Last Admin: 09/20/16 15:27 Dose: Not Given Escitalopram Oxalate (Lexapro) 10 mg PO DAILY [facility] Last Admin: 09/20/16 09:59 Dose: 10 mg Gabapentin (Neurontin) 600 mg PO TID [facility] Last Admin: 09/20/16 17:32 Dose: 600 mg Guaifenesin (Mucinex La) 600 mg PO BID [facility] Last Admin: 09/20/16 17:33 Dose: 600 mg Hydroxyzine HCl (Atarax) 25 mg PO DAILY [facility] Last Admin: 09/20/16 09:59 Dose: 25 mg Multivitamins/Minerals (Therapeutic-M Tab) 1 tab PO DAILY [facility] Last Admin: 09/20/16 09:59 Dose: 1 tab Oxycodone HCl (Oxycodone Immediate Release Tab) 10 mg PO Q6 PRN PRN Reason: Pain, severe (8-10) Last Admin: 09/20/16 22:42 Dose: 10 mg Pantoprazole Sodium (Protonix Ec Tab) 40 mg PO DAILY [facility] Last Admin: 09/20/16 09:59 Dose: 40 mg Risperidone (Risperdal Tab) 3 mg PO QPM [facility] Last Admin: 09/20/16 17:33 Dose: 3 mg Simethicone (Mylicon Chew Tab) 80 mg PO TID [facility] Last Admin: 09/20/16 17:33 Dose: Not Given Topiramate (Topamax) 50 mg PO DAILY [facility] Last Admin: 09/20/16 09:59 Dose: 50 mg Trazodone HCl (Desyrel) 100 mg PO HS [facility] Last Admin: 09/20/16 21:47 Dose: 100 mg - Labs Labs: 09/20/16 07:59 09/20/16 07:59 Attending/Attestation - Attestation I have personally seen and examined this patient.: Yes I have fully participated in the care of the patient.: Yes I have reviewed all pertinent clinical information, including history, physical exam and plan: Yes Notes (Text): Patient seen, examined and case discussed with day-time resident. Patient reporting b/l lower leg pain today, reports better compared to yesterday. CPK trending down. Will increase dose Gabapentin 600mg PO TID (Home dose: 800mg PO TID), Flexeril 5mg POqHS and observe during the day. Liver function tests improving. Patient is awake, alert, oriented X3, no acute distress, vocal. Patient to continue IV fluids for rhabdomyolysis to improve CPK. Assessment/Plan 1) Altered mental status * likely secondary to polypharmacy due to pain medication and blood pressure medication as stated above * Neurology (Dr. Reinoso) on board--> help appreciated * CT head X2: no acute findings * Mental status changed during the day, and improved this evening. * Held all pain medications and held blood pressure medications in light of CARE TEAM ASSISTANT * Patient's home medications secured by security following CARE TEAM ASSISTANT so patient does not take home meds and psych meds * Repeat EKG->Qt is normal-->resumed Resperidone 2) Rhabdomyolysis * Patient started on IV fluids * will monitor CPK * held all pain medications/blood pressure medications in light of CARE TEAM ASSISTANT 09/17 * c/w oxycodone 10mg PO Q 6hours PRN severe pain * Gabapentin 600mg PO TID 3) Anemia: * Stool for occult blood pending * PICC line in place: transfused 2 units on 09/15/16 * Hgb: 8.7 4) Pneumonia: * Afebrile, tachycardiac * No leukocytosis * CXR- diffused interstitial lung markings, which may represent edema and or underlying infiltrates, patchy markngs in the right lower lung zone and medial right lung base suggestive of possible infiltrate * Urine legionella: negative, mycoplasma, strep pneumo ag ordered * Avelox 400 mg IV qdaily completed 6 days; discontinued * Trach: Staph Aureus 5) Malfunctioned tracheostomy tube * Pulmonology, Dr. Mckeon, consulted. Help appreciated - patient requires home neb, home suction, speech therapy for speaking valve. * Case management has setup home nebulizer and home suctioning which was delivered to house; discussed with patient's daughter in law. * Speech therapy note: patient refused fenestrated trach * Humidified 02 * Mucinex 600 mg po tid, Mucomyst Q6H * Patient self care trach 6) Asthma * Duonebs 6h estephania * Mucinex 600 mg po tid, Mucomyst Q6H 7) HTN: * Blood pressure medications held in light of CARE TEAM ASSISTANT which included hypotension * Patient is currently on IV fluids * continue to monitor 8) Major Depressive Disorder: * Respirdal 3mg POqM * Lexapro 10 mg po qdaily * Trazodone 100 mg po qdaily 9) Neuropathic Pain: * Gabapentin 6 00mg PO TID and titrate up (home dosage: 800mg) 10) Arthritis/Chronic Back pain: * Oxycodone 10mg PO Q 6hour PRN severe pain * Flexeril 5mg POqSH 11) Globus Sensation * ENT consulted- patient underwent flexible laryngoscopy - showed vocal cord paralysis - recommended GI consult * GI consulted - Dr. Patel- help appreciated - recommended continue Protonix for GERD. 12) Hepatitis C * GI consulted - Dr. Patel- help appreciated * Chronic. Not treated. Elevated LFTs, improving. * Dr. Tapia discussed risk of cirrhosis and liver cancer and risk of transmission as well as treatments options with patient. 12) Prophylactic Measures: * DVT: SCDs, restart anticoagulation and monitor H/H * GI: Protonix 40 mg po qdaily * Heart Healthy Diet Disposition * Will benefit from IV fluids and monitor CPK in light of rhabdo
[2016-09-20] MEDS: Enoxaparin 40 mg Syringe SC SCH (15:27)
[2016-09-21] MEDS: Acetylcysteine 20% Inhal Soln (4ml) INH SCH ×2 (01:29→08:05)
[2016-09-21] MEDS: Albuterol-Ipratrop 3 mg / 0.5 (3 ml) UD INH SCH ×2 (01:29→08:05)
[2016-09-21] MEDS: oxyCODONE 10 mg Immediate Release Tab PO PRN ×2 (06:15→12:24)
[2016-09-21 07:40] LABS: CHLORIDE 104 mmol/L (98-107); POTASSIUM 3.8 mmol/L (3.6-5.2); SODIUM 137 mmol/L (132-148)
[2016-09-21 07:42] LABS: ALB/GLOB RATIO 0.9 (1.0-2.1); ALKALINE PHOSPHATASE 96 U/L (38-126); AST/SGOT 68 U/L (14-36); BILIRUBIN,TOTAL 0.5 mg/dL (0.2-1.3); BLOOD UREA NITROGEN 12 mg/dL (7-17); CARBON DIOXIDE 24 mmol/L (22-30); GFR AFRICAN-AMERICAN > 60; TOTAL PROTEIN 7.1 g/dL (6.3-8.3)
[2016-09-21 07:43] LABS: ALT/SGPT 49 U/L (9-52); CALCIUM 9.1 mg/dl (8.6-10.4); GLUCOSE,RANDOM 83 mg/dL (65-105); MAGNESIUM 1.9 mg/dL (1.6-2.3); PHOSPHOROUS 4.8 mg/dL (2.5-4.5)
[2016-09-21 07:45] LABS: BASO # 0.1 K/uL (0.0-0.2); BASO % 1.4 % (0.0-2.0); EOS # 0.3 K/uL (0.0-0.7); EOS % 4.6 % (0.0-4.0); HEMATOCRIT 29.5 % (34.0-47.0); LYMPH # 2.2 K/uL (1.0-4.3); LYMPH % 33.6 % (20.0-40.0); MEAN CELL VOLUME 75.4 fL (81.0-99.0); MEAN CORPUSCULAR HEMOGLOBIN 23.3 pg (27.0-31.0); MEAN CORPUSCULAR HGB CONC 30.8 g/dL (33.0-37.0); MEAN PLATELET VOLUME 7.6 fL (7.2-11.7); MONO # 0.6 K/uL (0.0-0.8); MONO % 9.8 % (0.0-10.0); NRBC % 0.1 % (0.0-2.0); RED CELL DISTRIBUTION WIDTH 26.7 % (11.5-14.5); WHITE BLOOD COUNT 6.5 K/uL (4.8-10.8)
--- NOTE | 2016-09-21 08:56 | CP.PCM.DIS ---
<Kamla Osborne V - Last Filed: 09/21/16 09:21> Provider - Provider Date of Admission: 09/13/16 09:08 Attending physician: Kamla Osborne, Hospital Course - Lab Results Lab Results: Micro Results 09/13/16 10:00 Blood Blood Culture - Final NO GROWTH AFTER 5 DAYS 09/13/16 10:00 Blood Gram Stain - Final TEST NOT PERFORMED Most Recent Lab Values WBC 6.5 K/uL (4.8-10.8) 09/21/16 07:07 RBC 3.91 Mil/uL (3.80-5.20) 09/21/16 07:07 Hgb 9.1 g/dL (11.0-16.0) L 09/21/16 07:07 Hct 29.5 % (34.0-47.0) L 09/21/16 07:07 MCV 75.4 fL (81.0-99.0) L 09/21/16 07:07 MCH 23.3 pg (27.0-31.0) L 09/21/16 07:07 MCHC 30.8 g/dL (33.0-37.0) L 09/21/16 07:07 RDW 26.7 % (11.5-14.5) H 09/21/16 07:07 Plt Count 342 K/uL (130-400) 09/21/16 07:07 MPV 7.6 fL (7.2-11.7) 09/21/16 07:07 Neut % (Auto) 50.6 % (50.0-75.0) 09/21/16 07:07 Lymph % (Auto) 33.6 % (20.0-40.0) 09/21/16 07:07 Garrard % (Auto) 9.8 % (0.0-10.0) 09/21/16 07:07 Eos % (Auto) 4.6 % (0.0-4.0) H 09/21/16 07:07 Baso % (Auto) 1.4 % (0.0-2.0) 09/21/16 07:07 Neut # 3.3 K/uL (1.8-7.0) 09/21/16 07:07 Lymph # 2.2 K/uL (1.0-4.3) 09/21/16 07:07 Garrard # 0.6 K/uL (0.0-0.8) 09/21/16 07:07 Eos # 0.3 K/uL (0.0-0.7) 09/21/16 07:07 Baso # 0.1 K/uL (0.0-0.2) 09/21/16 07:07 Neutrophils % (Manual) 49 % (50-75) L 09/17/16 07:21 Lymphocytes % (Manual) 37 % (20-40) 09/17/16 07:21 Monocytes % (Manual) 10 % (0-10) 09/17/16 07:21 Eosinophils % (Manual) 3 % (0-4) 09/17/16 07:21 Basophils % (Manual) 1 % (0-2) 09/17/16 07:21 Platelet Estimate Normal (NORMAL) 09/17/16 07:21 Hypochromasia (manual) Moderate 09/17/16 07:21 Poikilocytosis (manual Slight 09/17/16 07:21 Anisocytosis (manual) Moderate 09/17/16 07:21 Target Cells Slight 09/17/16 07:21 Lake Cells Slight 09/17/16 07:21 Sodium 137 mmol/L (132-148) 09/21/16 07:07 Potassium 3.8 mmol/L (3.6-5.2) 09/21/16 07:07 Chloride 104 mmol/L (98-107) 09/21/16 07:07 Carbon Dioxide 24 mmol/L (22-30) 09/21/16 07:07 Anion Gap 13 (10-20) 09/21/16 07:07 BUN 12 mg/dL (7-17) 09/21/16 07:07 Creatinine 0.8 MG/DL (0.7-1.2) 09/21/16 07:07 Est GFR ( Amer) > 60 09/21/16 07:07 Est GFR (Non-Af Amer) > 60 09/21/16 07:07 POC Glucose (mg/dL) 129 mg/dL (65-110) H 09/17/16 12:36 Random Glucose 83 mg/dL (65-105) 09/21/16 07:07 Calcium 9.1 mg/dl (8.6-10.4) 09/21/16 07:07 Phosphorus 4.8 mg/dL (2.5-4.5) H 09/21/16 07:07 Magnesium 1.9 mg/dL (1.6-2.3) 09/21/16 07:07 Total Bilirubin 0.5 mg/dL (0.2-1.3) 09/21/16 07:07 AST 68 U/L (14-36) H 09/21/16 07:07 ALT 49 U/L (9-52) 09/21/16 07:07 Alkaline Phosphatase 96 U/L (38-126) 09/21/16 07:07 Total Creatine Kinase 501 U/L (30-135) H 09/21/16 07:07 CK-MB (Mass) 85.8 ng/mL (0.0-3.38) H 09/17/16 14:23 Troponin I, Quant < 0.0120 ng/mL (0.00-0.120) 09/17/16 14:23 Total Protein 7.1 g/dL (6.3-8.3) 09/21/16 07:07 Albumin 3.4 g/dL (3.5-5.0) L 09/21/16 07:07 Globulin 3.7 gm/dL (2.2-3.9) 09/21/16 07:07 Albumin/Globulin Ratio 0.9 (1.0-2.1) L 09/21/16 07:07 Lipase 183 U/L (23-300) 09/16/16 06:59 Alpha Fetoprotein 4.9 ng/mL (0.0-7.5) 09/19/16 07:46 Urine Color Yellow (YELLOW) 09/13/16 09:57 Urine Clarity Clear (Clear) 09/13/16 09:57 Urine pH 6.0 (5.0-8.0) 09/13/16 09:57 Ur Specific [place] 1.009 (1.003-1.030) 09/13/16 09:57 Urine Protein Negative mg/dL (NEGATIVE) 09/13/16 09:57 Urine Glucose (UA) Normal mg/dL (Normal) 09/13/16 09:57 Urine Ketones Negative mg/dL (NEGATIVE) 09/13/16 09:57 Urine Blood Negative (NEGATIVE) 09/13/16 09:57 Urine Nitrate Negative (NEGATIVE) 09/13/16 09:57 Urine Bilirubin Negative (NEGATIVE) 09/13/16 09:57 Urine Urobilinogen 2.0 mg/dL (0.2-1.0) H 09/13/16 09:57 Ur Leukocyte Esterase Neg Ananda/uL (Negative) 09/13/16 09:57 Urine WBC (Auto) < 1 /hpf (0-5) 09/13/16 09:57 Ur Squamous Epith Cells 1 /hpf (0-5) 09/13/16 09:57 Urine Bacteria Rare (<OCC) 09/13/16 09:57 Ur L.pneumophila Ag Negative (NEGATIVE) 09/13/16 11:09 Mycoplasma pneumon IgM Negative (NEGATIVE) 09/13/16 11:09 Blood Type B POSITIVE 09/14/16 14:33 Antibody Screen Negative 09/14/16 14:33 Discharge Plan - Discharge Medications Prescriptions: Moxifloxacin [Avelox] 400 mg PO DAILY #5 tab Multivitamin [Multi-Vitamin Daily] 1 each PO DAILY #30 tablet - Follow Up Plan Condition: STABLE Disposition: HOME/ ROUTINE Instructions: Bronchiolitis (DC), Tracheostomy Care (DC), Anemia (DC) Additional Instructions: Patient instructed to continue current home medications EXCEPT her norvasc, metoprolol, and HCTZ. During hospitilization vitals where stable, due to an episode of hypotension, these medications were held and must be held upon discharge. Patient must first have her blood pressure rechecked in 1 week and her medications restarted by her PMD as needed. Patient instructed to stop taking Tylenol with codeine and Endocet. Patient is to have her liver function tests taken in 1-2 weeks by her PMD to monitor her LFTs. Patient given referral for ENT and Cardiothoracic for tracheostomy care. Patient supplied with home suction and nebulizer, she was instructed on its use. Please return to the ED if your symptoms worsen. Referrals: Ron Quintanilla MD [Staff Provider] - Shay Hinds MD [Staff Provider] - Attending/Attestation - Attestation I have personally seen and examined this patient.: Yes I have fully participated in the care of the patient.: Yes I have reviewed all pertinent clinical information, including history, physical exam and plan: Yes Notes (Text): Patient seen, examined and case discussed with day-time resident. Patient is awake, smiling, and denies acute distress. Patient's Gabapentin resumed at her home medication: 800mg PO tid and advised to patient that her muscle relaxant, Flexeril 5mg PO qHS lowered from Flexeril 10mg PO tid. Patient' s CPK downtrending appropriately. Patient is medically stable for discharge today. Patient's vitals are stable. Patient is currently off her anti-hypertensives given noted hypotension during hospitalization. Patient advised she must follow- up with her PMD: Dr Henderson to have repeat liver function tests and repeat blood pressure check to determine to resume medications at his discretion. Reviewed the [employer], patient has Tylenol-Codeine from 09/07/16 and Endocet filled. Patient advised to not taking these medications because of her elevated liver functions. Patient given Oxycodone 5mg PO 1 tab Q 6HR PRN severe pain (15 pills only/no refill). The resident and I reviewed her home medication, and recommendations to stop blood pressure medications given patient was hypotensive and stop percocet/ endocet/tylenol-codeine secondary to elevated liver function test which are improving. Patient is medically stable for discharge. Patient to follow-up with PMD, Dr. Henderson within one week of discharge for blood pressure check and repeat liver function tests. Patient has received home oxygen and home suction prior to assisting her suctioning . patient advised to not suction with straw to avoid bleeding episodes at the trach site. Patient refused fenestrated trach. Assessment/Plan 1) Rhabdomyolysis * Patient started on IV fluids during hospitalization. * held all pain medications/blood pressure medications in light of PRIMER BOXER 09/17 * c/w oxycodone 10mg PO Q 6hours PRN severe pain--> Oxycodone 5mg PO 1 tab Q 6HR PRN severe pain (15 pills only/no refill) and [employer] accessed on 09/21/16 * Resumed patient's home dosage: Gabapentin 800mg PO TID 1) Altered mental status * lPatient is at baseline * ikely secondary to polypharmacy due to pain medication and blood pressure medication as stated above * Neurology (Dr. Reinoso) on board--> help appreciated * CT head X2: no acute findings * Resumed anti-depressant medications, adjust dose of pain prn, and muscle relaxant prn 3) Anemia * PICC line in place: transfused 2 units on 09/15/16 * Hgb: 9.1 4) Pneumonia: * Afebrile, tachycardiac * No leukocytosis * CXR- diffused interstitial lung markings, which may represent edema and or underlying infiltrates, patchy markngs in the right lower lung zone and medial right lung base suggestive of possible infiltrate * Urine legionella: negative, mycoplasma, strep pneumo ag ordered * Avelox 400 mg IV qdaily completed 6 days * Trach: Staph Aureus 5) Malfunctioned tracheostomy tube * Pulmonology, Dr. Mckeon, consulted. Help appreciated - patient requires home neb, home suction, speech therapy for speaking valve. * Case management has setup home nebulizer and home suctioning which was delivered to house; discussed with patient's daughter in law. * Speech therapy note: patient refused fenestrated trach * Humidified 02 * Mucinex 600 mg po tid, Mucomyst Q6H * Patient self care trach 6) Asthma * Duonebs 6h estephania * Mucinex 600 mg po tid, Mucomyst Q6H 7) HTN: * off anti-hypertensives * off IV fluids * patient's vital signs are stable-->advised to follow-up with PMD to blood pressure check and restart anti-hypertensives per his discretion 8) Major Depressive Disorder: * Respirdal 3mg POqM * Lexapro 10 mg po qdaily * Trazodone 100 mg po qdaily 9) Neuropathic Pain: * Gabapentin 800mg PO TID 10) Arthritis/Chronic Back pain: * Oxycodone 10mg PO Q 6hour PRN severe pain-->on discharge, patient advised to STOP percocet/endocet/Tylenol-codine because of elevated liver function tests, and reviewed [place] [employer], patient given only Oxycodone 5mg 1 tab PO Q 6hour PRN pain severe pain (15 pills and zero refills) * Flexeril 5mg POqHS (15 pills/no refills) 11) Globus Sensation * ENT consulted- patient underwent flexible laryngoscopy - showed vocal cord paralysis - recommended GI consult * GI consulted - Dr. Patel- help appreciated - recommended continue Protonix for GERD. 12) Hepatitis C * GI consulted - Dr. Patel- help appreciated * Chronic. Not treated. Elevated LFTs, improving. * Dr. Tapia discussed risk of cirrhosis and liver cancer and risk of transmission as well as treatments options with patient. 12) Prophylactic Measures: * DVT: SCDs, restart anticoagulation and monitor H/H * GI: Protonix 40 mg po qdaily * Heart Healthy Diet <Louisa Vivar - Last Filed: 09/21/16 12:32> Provider - Provider Date of Admission: 09/13/16 09:08 Attending physician: Kamla Osborne DO Time Spent in preparation of Discharge (in minutes): 45 Hospital Course - Lab Results Lab Results: Micro Results 09/13/16 10:00 Blood Blood Culture - Final NO GROWTH AFTER 5 DAYS 09/13/16 10:00 Blood Gram Stain - Final TEST NOT PERFORMED Most Recent Lab Values WBC 6.5 K/uL (4.8-10.8) 09/21/16 07:07 RBC 3.91 Mil/uL (3.80-5.20) 09/21/16 07:07 Hgb 9.1 g/dL (11.0-16.0) L 09/21/16 07:07 Hct 29.5 % (34.0-47.0) L 09/21/16 07:07 MCV 75.4 fL (81.0-99.0) L 09/21/16 07:07 MCH 23.3 pg (27.0-31.0) L 09/21/16 07:07 MCHC 30.8 g/dL (33.0-37.0) L 09/21/16 07:07 RDW 26.7 % (11.5-14.5) H 09/21/16 07:07 Plt Count 342 K/uL (130-400) 09/21/16 07:07 MPV 7.6 fL (7.2-11.7) 09/21/16 07:07 Neut % (Auto) 50.6 % (50.0-75.0) 09/21/16 07:07 Lymph % (Auto) 33.6 % (20.0-40.0) 09/21/16 07:07 Garrard % (Auto) 9.8 % (0.0-10.0) 09/21/16 07:07 Eos % (Auto) 4.6 % (0.0-4.0) H 09/21/16 07:07 Baso % (Auto) 1.4 % (0.0-2.0) 09/21/16 07:07 Neut # 3.3 K/uL (1.8-7.0) 09/21/16 07:07 Lymph # 2.2 K/uL (1.0-4.3) 09/21/16 07:07 Garrard # 0.6 K/uL (0.0-0.8) 09/21/16 07:07 Eos # 0.3 K/uL (0.0-0.7) 09/21/16 07:07 Baso # 0.1 K/uL (0.0-0.2) 09/21/16 07:07 Neutrophils % (Manual) 49 % (50-75) L 09/17/16 07:21 Lymphocytes % (Manual) 37 % (20-40) 09/17/16 07:21 Monocytes % (Manual) 10 % (0-10) 09/17/16 07:21 Eosinophils % (Manual) 3 % (0-4) 09/17/16 07:21 Basophils % (Manual) 1 % (0-2) 09/17/16 07:21 Platelet Estimate Normal (NORMAL) 09/17/16 07:21 Hypochromasia (manual) Moderate 09/17/16 07:21 Poikilocytosis (manual Slight 09/17/16 07:21 Anisocytosis (manual) Moderate 09/17/16 07:21 Target Cells Slight 09/17/16 07:21 Lake Cells Slight 09/17/16 07:21 Sodium 137 mmol/L (132-148) 09/21/16 07:07 Potassium 3.8 mmol/L (3.6-5.2) 09/21/16 07:07 Chloride 104 mmol/L (98-107) 09/21/16 07:07 Carbon Dioxide 24 mmol/L (22-30) 09/21/16 07:07 Anion Gap 13 (10-20) 09/21/16 07:07 BUN 12 mg/dL (7-17) 09/21/16 07:07 Creatinine 0.8 MG/DL (0.7-1.2) 09/21/16 07:07 Est GFR ( Amer) > 60 09/21/16 07:07 Est GFR (Non-Af Amer) > 60 09/21/16 07:07 POC Glucose (mg/dL) 129 mg/dL (65-110) H 09/17/16 12:36 Random Glucose 83 mg/dL (65-105) 09/21/16 07:07 Calcium 9.1 mg/dl (8.6-10.4) 09/21/16 07:07 Phosphorus 4.8 mg/dL (2.5-4.5) H 09/21/16 07:07 Magnesium 1.9 mg/dL (1.6-2.3) 09/21/16 07:07 Total Bilirubin 0.5 mg/dL (0.2-1.3) 09/21/16 07:07 AST 68 U/L (14-36) H 09/21/16 07:07 ALT 49 U/L (9-52) 09/21/16 07:07 Alkaline Phosphatase 96 U/L (38-126) 09/21/16 07:07 Total Creatine Kinase 501 U/L (30-135) H 09/21/16 07:07 CK-MB (Mass) 85.8 ng/mL (0.0-3.38) H 09/17/16 14:23 Troponin I, Quant < 0.0120 ng/mL (0.00-0.120) 09/17/16 14:23 Total Protein 7.1 g/dL (6.3-8.3) 09/21/16 07:07 Albumin 3.4 g/dL (3.5-5.0) L 09/21/16 07:07 Globulin 3.7 gm/dL (2.2-3.9) 09/21/16 07:07 Albumin/Globulin Ratio 0.9 (1.0-2.1) L 09/21/16 07:07 Lipase 183 U/L (23-300) 09/16/16 06:59 Alpha Fetoprotein 4.9 ng/mL (0.0-7.5) 09/19/16 07:46 Urine Color Yellow (YELLOW) 09/13/16 09:57 Urine Clarity Clear (Clear) 09/13/16 09:57 Urine pH 6.0 (5.0-8.0) 09/13/16 09:57 Ur Specific [place] 1.009 (1.003-1.030) 09/13/16 09:57 Urine Protein Negative mg/dL (NEGATIVE) 09/13/16 09:57 Urine Glucose (UA) Normal mg/dL (Normal) 09/13/16 09:57 Urine Ketones Negative mg/dL (NEGATIVE) 09/13/16 09:57 Urine Blood Negative (NEGATIVE) 09/13/16 09:57 Urine Nitrate Negative (NEGATIVE) 09/13/16 09:57 Urine Bilirubin Negative (NEGATIVE) 09/13/16 09:57 Urine Urobilinogen 2.0 mg/dL (0.2-1.0) H 09/13/16 09:57 Ur Leukocyte Esterase Neg Ananda/uL (Negative) 09/13/16 09:57 Urine WBC (Auto) < 1 /hpf (0-5) 09/13/16 09:57 Ur Squamous Epith Cells 1 /hpf (0-5) 09/13/16 09:57 Urine Bacteria Rare (<OCC) 09/13/16 09:57 Ur L.pneumophila Ag Negative (NEGATIVE) 09/13/16 11:09 Mycoplasma pneumon IgM Negative (NEGATIVE) 09/13/16 11:09 Blood Type B POSITIVE 09/14/16 14:33 Antibody Screen Negative 09/14/16 14:33 - Hospital Course Hospital Course: Upon Admission: CC: "Cough, bright red blood coming from trach site, weakness, green sputum coming from trach site" HPI: Pt is a 61 y/o -[place] Female with a PMHx of Hepatitis C, diverticulosis, HTN, gastritis, asthma, major depressive disorder, and severe arthritis who presented to the ED today with complaints of bloody coming from her trachesotomy site for the past 5 days. Pt reports that she has not had a suction device for the past year so she has been using a straw to remove the sputum from her throat. 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 She reports the surgery occurred at [facility] in [place]. She reports that she believes she irritated her throat with the straw and as a result she has had bright red blood being coming out. She also reports that over the past few weeks she has had thick, green sputum production and a cough that that has been getting progressively worse. She also reports that she has been feeling generally weak as well. Pt denies fever, chills, chest pain, nausea , vomiting, diarrhea, constipation. PMD: Dr. Gerard Henderson Pain Management: Dr. Felipe PMHx: Hepatitis C, diverticulosis, HTN, gastritis, asthma, major depressive disorder, and severe arthritis Home medications: Reviewed. 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 This is a brief summary of the patient's hospital course. Please review EMR for full course. Discharge Exam - Head Exam Head Exam: NORMAL INSPECTION, NORMOCEPHALIC - Eye Exam Eye Exam: Normal appearance - ENT Exam ENT Exam: Mucous Membranes Moist - Respiratory Exam Respiratory Exam: NORMAL BREATHING PATTERN. absent: Decreased Breath Sounds - Cardiovascular Exam Cardiovascular Exam: REGULAR RHYTHM, RRR - GI/Abdominal Exam GI & Abdominal Exam: Normal Bowel Sounds, Soft. absent: Distended, Tenderness - Extremities Exam Extremities exam: normal inspection, pedal pulses present - Neurological Exam Neurological exam: Alert, Oriented x3 - Skin Skin Exam: Dry, Intact, Normal Color, Warm
[2016-09-21] MEDS: Pantoprazole 40 mg EC Tab PO SCH (09:42)
[2016-09-21] MEDS: Multivitamin With Minerals Tab PO SCH (09:42)
[2016-09-21] MEDS: Enoxaparin 40 mg Syringe SC SCH (09:42)
[2016-09-21] MEDS: guaiFENesin 600 mg ER Tab PO SCH (09:45)
[2016-09-21] MEDS: Simethicone 80 mg Chewtab PO SCH (09:51)
[2016-09-21 16:20] VITALS: BP 120/80; PULSE 85; TEMP 98.2; O2SAT 99
[2016-09-23 16:53] LABS: ALT 44 U/L (6-29); BILIRUBIN, TOTAL 0.3 mg/dL (0.2-1.2); FIBROSIS STAGE F1-F2; HAPTOGLOBIN 90 mg/dL (43-212); REFERENCE ID 1535646
== END 2016-09-21 13:48 | disposition home or self-care (01) | DRG 541 ==
LOC: C.ER 06:04 → C.9E 09:08 → C.3T 11:24
PROVIDERS: ADMIT Hospitalist; ATTEND Hospitalist
PROC: 30233N1 Transfusion of Nonautologous Red Blood Cells into Peripheral Vein, Percutaneous Approach (ICD-10-PCS; principal; 2016-09-14)
PROC: 02HV33Z Insertion of Infusion Device into Superior Vena Cava, Percutaneous Approach (ICD-10-PCS; 2016-09-14)
PROC: 0CJS8ZZ Inspection of Larynx, Via Natural or Artificial Opening Endoscopic (ICD-10-PCS; 2016-09-17)
DX: J95.03 Malfunction of tracheostomy stoma (principal); J18.9 Pneumonia, unspecified organism; M62.82 Rhabdomyolysis; Z93.0 Tracheostomy status; J44.0 Chronic obstructive pulmonary disease with (acute) lower respiratory infection; J38.00 Paralysis of vocal cords and larynx, unspecified; R13.10 Dysphagia, unspecified; B18.2 Chronic viral hepatitis C; Y83.8 Other surgical procedures as the cause of abnormal reaction of the patient, or of later complication, without mention of misadventure at the time of the procedure; I45.81 Long QT syndrome; D50.9 Iron deficiency anemia, unspecified; F17.210 Nicotine dependence, cigarettes, uncomplicated; I10 Essential (primary) hypertension; F32.9 Major depressive disorder, single episode, unspecified; J45.909 Unspecified asthma, uncomplicated; M19.90 Unspecified osteoarthritis, unspecified site; G89.29 Other chronic pain; M54.9 Dorsalgia, unspecified; K57.90 Diverticulosis of intestine, part unspecified, without perforation or abscess without bleeding; Z82.49 Family history of ischemic heart disease and other diseases of the circulatory system; Z98.1 Arthrodesis status; Z79.899 Other long term (current) drug therapy; K59.09 Other constipation

== ENCOUNTER 2016-11-02 19:36 | Emergency (ER) | payer MEDICAID ==
[2016-11-02 19:45] VITALS: O2SAT 98
--- NOTE | 2016-11-02 21:02 | C.PDOC ---
History Of Present Illness 61F c/o loss of appetite and feeling "weak" for the last 2 weeks. she also reports some dysuria as well as hesitancy. no f/c, n/v. Time Seen by Provider: 11/02/16 20:53 Chief Complaint (Nursing): Weakness/Neurological Deficit Past Medical History Vital Signs: Last Vital Signs Temp 97.8 F 11/02/16 23:50 Pulse 80 11/02/16 23:50 Resp 14 11/02/16 23:50 BP 110/70 11/02/16 23:50 Pulse Ox 98 11/02/16 23:50 - Medical History PMH: Anemia (chronic. Familial), Asthma, Depression, Diverticulitis, Gastritis, HTN Denies: Diabetes, Hepatitis, HIV, Seizures, Sexually Transmitted Disease - [facility] Procedures INSERTION OF INFUSION DEV INTO SUP VENA CAVA, PERC APPROACH (09/13/16) INSPECTION OF LARYNX, ENDO (09/13/16) TRANSFUSE NONAUT RED BLOOD CELLS IN PERIPH VEIN, PERC (09/13/16) Family History: States: Other Other Family History: nc - Social History Hx Tobacco Use: Yes Hx Alcohol Use: No Hx Substance Use: No - Immunization History Hx Tetanus Toxoid Vaccination: No Hx Influenza Vaccination: No Hx Pneumococcal Vaccination: No Review Of Systems Constitutional: Positive for: Weakness. Negative for: Fever ENT: Negative for: Nose Congestion Cardiovascular: Negative for: Chest Pain Respiratory: Negative for: Cough, Shortness of Breath Gastrointestinal: Positive for: Diarrhea (a couple times). Negative for: Nausea , Vomiting, Abdominal Pain Genitourinary: Positive for: Dysuria, Other (hesitancy). Negative for: Frequency Musculoskeletal: Positive for: Leg Pain (chronic pain) Neurological: Negative for: Weakness, Numbness Physical Exam - Physical Exam Appears: Non-toxic, No Acute Distress Skin: Warm, Dry Eye(s): bilateral: PERRL Nose: No Epistaxis Lips: No Swelling Neck: Normal ROM, Other (trach in place) Cardiovascular: Rhythm Regular Respiratory: No Decreased Breath Sounds, No Accessory Muscle Use, No Rales, No Rhonchi, No Stridor, No Wheezing Gastrointestinal/Abdominal: Soft, No Tenderness, No Distention, No Guarding, No Rebound Extremity: No Swelling Neurological/Psych: Oriented x3, Other (no focal deficits) ED Course And Treatment - Laboratory Results Result Diagrams: 11/02/16 22:02 11/02/16 22:02 O2 Sat by Pulse Oximetry: 98 Medical Decision Making Medical Decision Making: EKG: Ordered, reviewed, and independently interpreted the EKG. Rate: 74 BPM Rhythm: Normal Sinus Rhythm 2300 I disc results w pt. she is resting quietly, no distress. she is comfortable w plan for po abx, pcp f/u, and return if worss. 2330 the pt requested her home dose of oxycodone which she takes q6h Disposition - Disposition Referrals: Gerard Henderson MD [Medical Doctor] - Disposition: HOME/ ROUTINE Disposition Time: 23:34 Condition: STABLE Additional Instructions: Please follow up with your doctor tomorrow. Return to the ER for any worsening symptoms, fever, or for any other concerns. Prescriptions: Cephalexin [Keflex] 500 mg PO BID #14 capsule Instructions: Urinary Tract Infection in Women (ED) Forms: General Discharge Instructions - Clinical Impression Clinical Impression: UTI (urinary tract infection)
[2016-11-02] MEDS ORDERED: Sodium Chloride 0.9% 1,000 ML IV ONE (21:15)
[2016-11-02 22:06] LABS: EOS # 0.1 K/uL (0.0-0.7)
[2016-11-02 22:12] LABS: ALBUMIN 4.3 g/dL (3.5-5.0); SQUAMOUS EPITHIAL 6 /hpf (0-5); URINE BACTERIA OCC (<OCC); URINE BILIRUBIN NEGATIVE (NEGATIVE); URINE BLOOD NEGATIVE (NEGATIVE); URINE CLARITY Hazy (Clear); URINE COLOR Amber (YELLOW); URINE GLUCOSE (UA) NORMAL (Normal); URINE LEUKOCYTE ESTERASE 1+ Leu/uL (Negative); URINE NITRATE NEGATIVE (NEGATIVE); URINE PROTEIN 2+ mg/dL (NEGATIVE)
[2016-11-02 22:14] LABS: GFR AFRICAN-AMERICAN > 60; GFR NON-AFRICAN AMERICAN 56
[2016-11-02 22:15] LABS: ALT/SGPT 21 U/L (9-52); AST/SGOT 26 U/L (14-36); BLOOD UREA NITROGEN 10 mg/dL (7-17); CALCIUM 10.4 mg/dl (8.6-10.4)
[2016-11-02 22:16] LABS: NRBC % 0.1 % (0.0-2.0)
[2016-11-02 22:32] LABS: VENOUS BLOOD GAS BASE EXCESS -0.7 mmol/L (0.0-2.0); VENOUS BLOOD GAS PCO2 49 mmHg (40-60); VENOUS BLOOD GAS PO2 36 mm/Hg (30-55); VENOUS BLOOD PH 7.33 (7.32-7.43)
[2016-11-02 22:38] LABS: BASO % 0.6 % (0.0-2.0); EOS % 1.3 % (0.0-4.0); LYMPH # 3.9 K/uL (1.0-4.3); MEAN CORPUSCULAR HEMOGLOBIN 24.2 pg (27.0-31.0); MEAN CORPUSCULAR HGB CONC 30.8 g/dL (33.0-37.0); MEAN PLATELET VOLUME 7.6 fL (7.2-11.7); MONO # 0.6 K/uL (0.0-0.8); MONO % 8.7 % (0.0-10.0); NEUT # 2.5 K/uL (1.8-7.0); NEUT % 35.4 % (50.0-75.0); RBC 4.93 Mil/uL (3.80-5.20); WHITE BLOOD COUNT 7.2 K/uL (4.8-10.8)
[2016-11-02 22:39] LABS: HEMOGLOBIN 11.9 g/dL (11.0-16.0); MEAN CELL VOLUME 78.7 fL (81.0-99.0)
[2016-11-02] MEDS ORDERED: cefTRIAXone IV 1 gm in Dextros 50 ML IVPB ONE (23:19)
[2016-11-02] MEDS ORDERED: oxyCODONE 10 mg Immediate Release Tab PO STA (23:33)
[2016-11-02] MEDS ORDERED: oxyCODONE 5 mg Immediate Release Tab ONE (23:41)
[2016-11-02 23:51] VITALS: BP 110/70; PULSE 80; RESP 14; TEMP 97.8
--- NOTE | 2016-11-03 12:01 | RAD ---
HISTORY: weak COMPARISON: 09/14/2016 TECHNIQUE: Chest PA and lateral FINDINGS: LUNGS: Tracheostomy tube in place. Mild venous congestion. Patchy increased markings at the lung bases with more linear atelectasis at the left lung base. PLEURA: As above. CARDIOVASCULAR: Normal. OSSEOUS STRUCTURES: Postsurgical changes in the cervical spine. VISUALIZED UPPER ABDOMEN: Normal. OTHER FINDINGS: None. IMPRESSION: Tracheostomy tube in place. Mild venous congestion. Patchy increased markings at the lung bases with more linear atelectasis at the left lung base.
--- NOTE | 2016-11-04 13:27 | CARD ---
APPROVED REPORT EKG Measurement Heart [id number] <Conclusion> Normal sinus rhythm Normal ECG
== END 2016-11-02 23:51 | disposition home or self-care (01) ==
LOC: C.ER 19:36
DX: N39.0 Urinary tract infection, site not specified (principal)
CPT/HCPCS: 71020; 80053; 81001; 82803; 84484; 85025; 87086; 93005; 96374; 99285; J0696; J7040

== ENCOUNTER 2017-01-01 02:03 | Emergency (ER) | payer MEDICAID ==
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
[2017-01-01 04:39] VITALS: BP 144/83; PULSE 95; RESP 16; TEMP 97.6; O2SAT 99
--- NOTE | 2017-01-01 08:22 | RAD ---
HISTORY: leslie discharge from trach COMPARISON: Chest x-ray performed 11/02/16 TECHNIQUE: Chest PA and lateral FINDINGS: Tracheostomy tube no longer evident. LUNGS: Linear atelectasis, left lung base. No focal consolidation. Please note that chest x-ray has limited sensitivity for the detection of pulmonary masses. PLEURA: No significant pleural effusion identified. No definite pneumothorax . CARDIOVASCULAR: Heart size appears within normal limits. OSSEOUS STRUCTURES: Partially imaged cervical fusion hardware. VISUALIZED UPPER ABDOMEN: Unremarkable. OTHER FINDINGS: None. IMPRESSION: Linear atelectasis, left lung base. Tracheostomy tube no longer evident.
--- NOTE | 2017-01-01 08:26 | RAD ---
PROCEDURE: Right Foot Radiographs. HISTORY: fall, R foot pain COMPARISON: None. FINDINGS: BONES: Possible old chip or avulsion fracture at the dorsal medial surfaces the distal right 1st metatarsal metaphysis. This is not felt to present acute fracture however clinical correlation is advised. JOINTS: Degenerative joint space narrowing is appreciated throughout the interphalangeal joints diffusely as well as the 1st metatarsophalangeal joint and tarsal metatarsal articulations mildly. No subluxation or dislocation throughout. SOFT TISSUES: Normal. OTHER FINDINGS: None. IMPRESSION: 1. Likely old avulsion or chip fracture related to the distal 1st metatarsal bone as discussed above. An acute fracture is not favored. No dislocation or subluxation. 2. Degenerative midfoot and forefoot changes as discussed above.
== END 2017-01-01 04:46 | disposition home or self-care (01) ==
LOC: C.ER 02:03
DX: S92.311A Displaced fracture of first metatarsal bone, right foot, initial encounter for closed fracture (principal); W19.XXXA Unspecified fall, initial encounter

== ENCOUNTER 2017-03-22 20:06 | Emergency (ER) | payer MEDICAID ==
[2017-03-22 20:26] VITALS: RESP 20
[2017-03-22] MEDS ORDERED: Sodium Chloride 0.9% 1,000 ML IV ONE (20:44)
[2017-03-22 20:58] LABS: BASO % 0.8 % (0.0-2.0); EOS % 0.2 % (0.0-4.0); HEMATOCRIT 35.2 % (34.0-47.0); LYMPH # 0.5 K/uL (1.0-4.3); LYMPH % 7.8 % (20.0-40.0); MEAN CELL VOLUME 74.9 fL (81.0-99.0); MEAN CORPUSCULAR HEMOGLOBIN 23.2 pg (27.0-31.0); MEAN PLATELET VOLUME 7.7 fL (7.2-11.7); MONO # 0.3 K/uL (0.0-0.8); MONO % 5.2 % (0.0-10.0); NRBC % 0.2 % (0.0-2.0); PLATELET COUNT 382 K/uL (130-400); RED CELL DISTRIBUTION WIDTH 23.7 % (11.5-14.5); WHITE BLOOD COUNT 5.9 K/uL (4.8-10.8)
[2017-03-22] MEDS ORDERED: Sodium Chloride 0.9% 1,000 ML ONE (21:12)
[2017-03-22 21:35] LABS: BASOPHIL 1 % (0-2); NEUTROPHIL 88 % (50-75); TOTAL CELLS COUNTED 100
[2017-03-22 21:38] LABS: ALB/GLOB RATIO 0.9 (1.0-2.1); ALKALINE PHOSPHATASE 126 U/L (38-126); ALT/SGPT 42 U/L (9-52); AST/SGOT 42 U/L (14-36); BILIRUBIN,TOTAL 1.1 mg/dL (0.2-1.3); BLOOD UREA NITROGEN 9 mg/dL (7-17); CALCIUM 8.4 mg/dl (8.6-10.4); CARBON DIOXIDE 24 mmol/L (22-30); CHLORIDE 100 mmol/L (98-107); GFR AFRICAN-AMERICAN > 60; GLUCOSE,RANDOM 110 mg/dL (65-105); POTASSIUM 3.1 mmol/L (3.6-5.2); SODIUM 138 mmol/L (132-148); TOTAL PROTEIN 9.8 g/dL (6.3-8.3)
[2017-03-22 22:29] LABS: URINE BILIRUBIN NEGATIVE (NEGATIVE); URINE BLOOD NEGATIVE (NEGATIVE); URINE COLOR Straw (YELLOW); URINE GLUCOSE (UA) NORMAL (Normal); URINE KETONE 1+ mg/dL (NEGATIVE); URINE LEUKOCYTE ESTERASE NEG Leu/uL (Negative); URINE PROTEIN 2+ mg/dL (NEGATIVE); URINE UROBILINOGEN NORMAL mg/dL (0.2-1.0); WBC URINE < 1 /hpf (0-5)
[2017-03-22] MEDS ORDERED: Oxycodone/Acetaminophen 5/325 mg Tab ONE (22:45)
[2017-03-22] MEDS ORDERED: Oxycodone/Acetaminophen 5/325 mg Tab PO STA (22:48)
[2017-03-22] MEDS ORDERED: Potassium Chloride 10 mEq ER Tab PO STA (23:48)
--- NOTE | 2017-03-22 23:51 | C.PDOC ---
History Of Present Illness 62 year old female with a history of chronic back pain presents to the ED with complaints of nausea and vomiting for 2 days. Patient states she ran out of her Percocet medication 2 days ago that is prescribed by Dr. Colmenares for chronic back pain. Patient denies fever, chills, abdominal pain, diarrhea, or other complaints at this time. Time Seen by Provider: 03/22/17 20:38 Chief Complaint (Nursing): Abdominal Pain History Per: Patient History/Exam Limitations: no limitations Onset/Duration Of Symptoms: Days (2 days ) Current Symptoms Are (Timing): Still Present Radiation Of Pain To:: None Associated Symptoms: Nausea, Vomiting. denies: Fever, Chills, Diarrhea, Chest Pain Exacerbating Factors: None Alleviating Factors: None Recent travel outside of the [place]: No Additional History Per: Prior Records Abnormal Vaginal Bleeding: No Past Medical History Reviewed: Historical Data, Nursing Documentation, Vital Signs Vital Signs: Last Vital Signs Temp 98.5 F 03/22/17 20:18 Pulse 95 H 03/22/17 20:18 Resp 20 03/22/17 20:18 BP 151/92 H 03/22/17 20:18 Pulse Ox 95 03/22/17 23:54 - Medical History PMH: Anemia (chronic. Familial), Asthma, Depression, Diverticulitis, Gastritis, HTN - [facility] Procedures INSERTION OF INFUSION DEV INTO SUP VENA CAVA, PERC APPROACH (09/13/16) INSPECTION OF LARYNX, ENDO (09/13/16) TRANSFUSE NONAUT RED BLOOD CELLS IN PERIPH VEIN, PERC (09/13/16) Family History: States: Unknown Family Hx - Social History Hx Tobacco Use: Yes Hx Alcohol Use: Yes Hx Substance Use: No - Immunization History Hx Tetanus Toxoid Vaccination: No Hx Influenza Vaccination: No Hx Pneumococcal Vaccination: No Review Of Systems Constitutional: Negative for: Fever, Chills Cardiovascular: Negative for: Chest Pain, Palpitations Respiratory: Negative for: Cough, Shortness of Breath Gastrointestinal: Positive for: Nausea, Vomiting. Negative for: Abdominal Pain , Diarrhea Genitourinary: Negative for: Dysuria Neurological: Negative for: Weakness, Numbness Physical Exam - Physical Exam Appears: Non-toxic, No Acute Distress, Other (Elderly black female, patient appears older than stated age ) Skin: Warm, Dry, No Rash Head: Atraumatic, Normacephalic, No Tenderness Eye(s): bilateral: Other (dilated pupils ) Oral Mucosa: Moist Throat: Other (tracheostomy hole present, patient covers to speak) Neck: Supple Chest: Symmetrical, No Deformity Cardiovascular: Rhythm Regular, No Murmur Respiratory: No Rales, No Rhonchi, No Wheezing, Other (clear to auscultation bilaterally ) Gastrointestinal/Abdominal: Soft, No Tenderness, No Distention, No Guarding, No Rebound Extremity: Normal ROM, No Tenderness, No Pedal Edema, No Calf Tenderness, Capillary Refill (<2 seconds ), No Deformity, No Swelling Neurological/Psych: Oriented x3 ED Course And Treatment - Laboratory Results Result Diagrams: 03/22/17 20:49 03/22/17 20:49 Lab Interpretation: Normal (UA neg, u-tox neg) O2 Sat by Pulse Oximetry: 95 (RA) Pulse Ox Interpretation: Normal - Radiology CXR: Interpreted by Me CXR Interpretation: Yes: No Acute Disease - Other Rad abd x 2 X-Ray: Interpreted by Me (scant stool, no obst) Progress Note: Abdomen obstructive series, labs, and blood work were ordered. Patient was given Pepcid, Zofran, Klor-Con 10, and Percocet. Medical Decision Making Medical Decision Making: follow up w Dr Colmenares for refills of your chronic pain meds bland diet for 2 days Disposition Doctor Will See Patient In The: Office Counseled Patient/Family Regarding: Studies Performed, Diagnosis - Disposition Referrals: Gerard Henderson MD [Medical Doctor] - Disposition: HOME/ ROUTINE Disposition Time: 23:53 Condition: GOOD Additional Instructions: bland diet for 2 days Instructions: Acute Nausea and Vomiting (ED) Forms: [facility] (Thai) - Clinical Impression Clinical Impression: Nausea & vomiting - Scribe Statement The provider has reviewed the documentation as recorded by the Scribe Harmony Gilbert All medical record entries made by the Scribe were at my direction and personally dictated by me. I have reviewed the chart and agree that the record accurately reflects my personal performance of the history, physical exam, medical decision making, and the department course for this patient. I have also personally directed, reviewed, and agree with the discharge instructions and disposition.
[2017-03-23] MEDS ORDERED: Potassium Chloride 20 mEq/15 ml LIQ UD ONE (00:03)
[2017-03-23 01:10] VITALS: BP 155/90; PULSE 96; TEMP 97.8; O2SAT 98
--- NOTE | 2017-03-23 10:27 | RAD ---
PROCEDURE: Radiographs of the chest and abdomen (obstructive series) HISTORY: Abdominal pain COMPARISON: No prior. TECHNIQUE: AP radiograph of the chest, with upright and supine radiographs of the abdomen. FINDINGS: CHEST: Lungs: There are chronic changes in both lungs and bibasilar atelectasis, worse on the right. No focal consolidation. Cardiovascular: Normal size heart. No pulmonary vascular congestion. Pleura: No pleural fluid. No pneumothorax. Other findings: None. ABDOMEN AND PELVIS: Bowel: The bowel gas pattern is nonspecific. No evidence of mechanical obstruction. Free air: None. Bones: Unremarkable. Other findings: None. IMPRESSION: No evidence of lobar pneumonia. Nonspecific bowel gas pattern. No evidence of mechanical bowel obstruction.
== END 2017-03-23 01:10 | disposition home or self-care (01) ==
LOC: C.ER 20:06
DX: R11.2 Nausea with vomiting, unspecified (principal); I10 Essential (primary) hypertension; F17.210 Nicotine dependence, cigarettes, uncomplicated
CPT/HCPCS: 74022; 80053; 80324; 80345; 80346; 80349; 80353; 80358; 80361; 81001; 83690; 83992; 85025; 96361; 96374; 96375; 96376; 99285; J2405; J7040

== ENCOUNTER 2017-10-26 00:02 | Inpatient (IN) | payer MEDICAID ==
--- NOTE | 2017-10-26 04:22 | C.PDOC ---
History Of Present Illness 62 y/o female with Hx of tracheostomy presents to ED for complaints of a straw got lodged inside her tracheostomy while using it to clean her trach. Patient states she feels straw moving in her throat which prompted the ED visit. Denies SOB, stridor, or any other physical complaints. Time Seen by Provider: 10/26/17 01:44 Chief Complaint (Nursing): ENT Problem History Per: Patient History/Exam Limitations: no limitations Onset/Duration Of Symptoms: Hrs Current Symptoms Are (Timing): Still Present Severity: Moderate Recent travel outside of the [place]: No Past Medical History Reviewed: Historical Data, Nursing Documentation, Vital Signs Vital Signs: Last Vital Signs Temp 98.8 F 10/26/17 00:26 Pulse 107 H 10/26/17 00:26 Resp 16 10/26/17 00:26 BP 147/98 H 10/26/17 00:26 Pulse Ox 98 10/26/17 06:49 - Medical History PMH: Asthma, Depression, Diverticulitis, Gastritis, HTN Comment Only: Anemia (chronic. Familial) - [facility] Procedures INSERTION OF INFUSION DEV INTO SUP VENA CAVA, PERC APPROACH (09/13/16) INSPECTION OF LARYNX, ENDO (09/13/16) TRANSFUSE NONAUT RED BLOOD CELLS IN PERIPH VEIN, PERC (09/13/16) Family History: States: Unknown Family Hx - Social History Hx Tobacco Use: Yes Hx Alcohol Use: Yes Hx Substance Use: No - Immunization History Hx Tetanus Toxoid Vaccination: No Hx Influenza Vaccination: Yes Hx Pneumococcal Vaccination: Yes Review Of Systems Constitutional: Negative for: Fever, Chills ENT: Positive for: Other (foreign body in throat) Cardiovascular: Negative for: Chest Pain Respiratory: Negative for: Cough, Shortness of Breath Gastrointestinal: Negative for: Nausea, Vomiting, Abdominal Pain, Diarrhea Musculoskeletal: Negative for: Neck Pain Skin: Negative for: Rash Neurological: Negative for: Weakness, Numbness Physical Exam - Physical Exam Appears: Well, Non-toxic, No Acute Distress Skin: Normal Color, Warm, Dry Head: Atraumatic, Normacephalic Eye(s): bilateral: Normal Inspection, PERRL, EOMI Nose: Normal, No Discharge Oral Mucosa: Moist Throat: Normal, No Erythema, No Exudate, No Drooling, Other (tracheostomy tube in place; no foreign body visualized thru stoma ) Neck: Trachea Midline, Supple Chest: Symmetrical, No Deformity, No Tenderness Cardiovascular: Rhythm Regular, No Murmur Respiratory: Normal Breath Sounds, No Decreased Breath Sounds, No Rales, No Rhonchi, No Stridor, No Wheezing Gastrointestinal/Abdominal: Soft, No Tenderness Extremity: Normal ROM, No Deformity Extremity: Bilateral: Atraumatic, Normal Color And Temperature, Normal ROM Neurological/Psych: Oriented x3, Normal Speech Gait: Steady ED Course And Treatment O2 Sat by Pulse Oximetry: 98 (RA) Pulse Ox Interpretation: Normal - Other Rad Neck Soft Tissue X-Ray X-Ray: Interpreted by Me, Viewed By Me Interpretation: - No foreign body. - Normal findings. Pt still insists on FB sensation, pt is in no respiratory distress, speaking normally with covered trach. Soft tissue Neck CT ordered. 7 am: Neck CT just recently completed. Pt remains stable in no distress. will s/o PAULO Cervantes for CT results and disposition - CT Scan/US CT Neck Other Rad Studies (CT/US): Read By Radiologist, Radiology Report Reviewed CT/US Interpretation: EXAM: CT Neck Without Intravenous Contrast. CLINICAL HISTORY: 62 years old, female; Pain; Painful swallowing; Prior surgery; Additional info: States straw lodged in. trach using it as suction. TECHNIQUE : Axial computed tomography images of the neck without intravenous contrast. All CT scans at this. facility use at least one of these dose optimization techniques: automated exposure control; mA. and/or kV adjustment per patient size (includes targeted exams where dose is matched to clinical. indication); or iterative reconstruction. Coronal and sagittal reformatted images were created and reviewed. COMPARISON: No relevant prior studies available. FINDINGS: Oropharynx: Unremarkable. No significant tonsillar enlargement. Hypopharynx: Unremarkable. Larynx: Unremarkable. Normal epiglottis. Trachea: There is a tracheotomy. Retropharyngeal space: Unremarkable. Submandibular/ parotid glands: Unremarkable. Glands are normal in size. Thyroid: Unremarkable. No enlarged or calcified nodules. Bones/joints: Patient has had prior cervical fusion, please correlate with surgical history. No acute. fracture. Soft tissues: Unremarkable. Vasculature: There are calcified atherosclerotic changes of the cervical carotid arteries. Lymph nodes: There are scattered enlarged cervical lymph nodes. Lung apices: There are bilateral centrilobular emphysematous changes. Tubes, lines and devices: There is a linear metallic density within the soft tissues to the right of the. tracheostomy. Please correlate clinically. IMPRESSION: There is a linear metallic density within the soft tissues to the right of the tracheostomy. Please. correlate clinically. If patient's symptoms persist and/or worsen, post contrast imaging would be recommended. Progress Note: Ordered Neck Soft Tissue X-Ray and CT. Disposition - Disposition Disposition Time: 06:56 Condition: STABLE Forms: [facility] (Mauritian) - Clinical Impression Clinical Impression: Foreign body in throat - PA / [employer] / Resident Statement MD/DO has reviewed & agrees with the documentation as recorded. - Scribe Statement The provider has reviewed the documentation as recorded by the Daianaibe Peace Gill All medical record entries made by the Daianaibe were at my direction and personally dictated by me. I have reviewed the chart and agree that the record accurately reflects my personal performance of the history, physical exam, medical decision making, and the department course for this patient. I have also personally directed, reviewed, and agree with the discharge instructions and disposition. Physician Patient Turnover Patient Signed Over To: Isabella Cervantes Handoff Comments: Pending CT neck results and dispo
[2017-10-26] MEDS ORDERED: Sodium Chloride 0.9% 1,000 ML IV ONE (08:01)
[2017-10-26 08:50] LABS: HEMOGLOBIN 9.8 g/dL (11.0-16.0); MEAN CORPUSCULAR HEMOGLOBIN 22.6 pg (27.0-31.0); MEAN CORPUSCULAR HGB CONC 31.2 g/dL (33.0-37.0); MEAN PLATELET VOLUME 7.1 fL (7.2-11.7); RBC 4.35 Mil/uL (3.80-5.20); RED CELL DISTRIBUTION WIDTH 22.7 % (11.5-14.5); WHITE BLOOD COUNT 5.2 K/uL (4.8-10.8)
[2017-10-26 08:57] LABS: MEAN CELL VOLUME 72.4 fL (81.0-99.0)
[2017-10-26 08:59] LABS: INR 0.9
[2017-10-26 09:00] LABS: ALB/GLOB RATIO 0.9 (1.0-2.1); ALBUMIN 3.8 g/dL (3.5-5.0); GFR AFRICAN-AMERICAN > 60; GFR NON-AFRICAN AMERICAN > 60
[2017-10-26 09:04] LABS: ALT/SGPT 11 U/L (9-52); AST/SGOT 34 U/L (14-36); BLOOD UREA NITROGEN 9 mg/dL (7-17)
[2017-10-26 09:59] LABS: LYMPH # 2.6 K/uL (1.0-4.3); MONO # 0.6 K/uL (0.0-0.8)
--- NOTE | 2017-10-26 10:36 | CP.PCM.HP ---
History of Present Illness - History of Present Illness History of Present Illness: CC: straw 62 y/o female with s/p tracheostomy & HTN. Patient using straw to suction, thick mucus. Patient straw stuck on her airway. Present on Admission - Present on Admission Any Indicators Present on Admission: Yes History of DVT/PE: No History of Uncontrolled Diabetes: No Urinary Catheter: No Decubitus Ulcer Present: No Review of Systems - Review of Systems Systems not reviewed;Unavailable: Acuity of Condition - Constitutional Constitutional: absent: Anorexia, Fatigue, Fever, Malaise - EENT Eyes: absent: Itchy Eyes, Loss of Peripheral Vision, Pain, Sees Flashes, Loss of Vision Nose/Mouth/Throat: absent: Epistaxis, Nasal Congestion, Nasal Discharge, Nasal Trauma, Bleeding Gums - Cardiovascular Cardiovascular: absent: Chest Pain, Diaphoresis, Irregular Heart Rhythm, Leg Edema, Orthopnea - Respiratory Respiratory: Cough, Excessive Mucous Production. absent: Snoring, Pain on Inspiration, Chest Congestion - Gastrointestinal Gastrointestinal: absent: Abdominal Pain, Constipation, Diarrhea, Early Satiety , Melena, Nausea - Genitourinary Genitourinary: absent: Difficulty Urinating, Pyuria, Nocturia, Urinary Urgency - Musculoskeletal Musculoskeletal: absent: Abnormal Gait, Atrophy, Back Pain, Loss of Height Past Patient History - Past Medical History & Family History Past Medical History?: Yes - Past Social History Smoking Status: Heavy Smoker > 10 Cigarettes Daily - CARDIAC Hx Hypertension: Yes - PULMONARY Hx Asthma: Yes - NEUROLOGICAL Hx Seizures: No - HEMATOLOGICAL/ONCOLOGICAL Hx Anemia: (chronic. Familial) - MUSCULOSKELETAL/RHEUMATOLOGICAL Hx Falls: No - GASTROINTESTINAL Hx Diverticulitis: Yes Hx Gastritis: Yes - GENITOURINARY/GYNECOLOGICAL Hx Sexually Transmitted Disorders: No - PSYCHIATRIC Hx Depression: Yes Hx Substance Use: No - SURGICAL HISTORY Hx Surgeries: Yes Hx Breast Biopsy: Yes Hx Herniorrhaphy: Yes (abdominal x 4) Hx Hysterectomy: Yes Other/Comment: tracheostomy, cervical spine fusion. - ANESTHESIA Hx Anesthesia: Yes Hx Anesthesia Reactions: No Meds Allergies/Adverse Reactions: Allergies Allergy/AdvReac Type Severity Reaction Status Date / Time codeine Allergy RASH Verified 10/26/17 00:37 ibuprofen Allergy RASH Verified 10/26/17 00:37 Penicillins Allergy RASH Verified 10/26/17 00:37 tramadol Allergy RASH Verified 10/26/17 00:37 Physical Exam - Constitutional Appears: Well - Head Exam Head Exam: NORMAL INSPECTION - Eye Exam Eye Exam: Normal appearance - ENT Exam ENT Exam: Mucous Membranes Moist - Neck Exam Neck exam: Positive for: Full Rom. Negative for: Lymphadenopathy, Normal Inspection - Respiratory Exam Respiratory Exam: Clear to Auscultation Bilateral. absent: Rales, Rhonchi, Wheezes - Cardiovascular Exam Cardiovascular Exam: Gallop, REGULAR RHYTHM, +S1, +S2 - GI/Abdominal Exam GI & Abdominal Exam: Soft. absent: Tenderness - Extremities Exam Extremities exam: Positive for: full ROM, normal capillary refill. Negative for : joint swelling Results - Vital Signs Recent Vital Signs: Last Vital Signs Temp 98.3 F 10/26/17 07:10 Pulse 91 H 10/26/17 07:10 Resp 20 10/26/17 07:10 BP 119/81 10/26/17 07:10 Pulse Ox 98 10/26/17 07:10 - Labs Result Diagrams: 10/26/17 08:43 10/26/17 08:43 Labs: Laboratory Results - last 24 hr 10/26/17 10/26/17 10/26/17 08:43 08:43 08:43 WBC 5.2 RBC 4.35 Hgb 9.8 L Hct 31.5 L MCV 72.4 L D MCH 22.6 L MCHC 31.2 L RDW 22.7 H Plt Count 418 H MPV 7.1 L Neut % (Auto) 38.0 L Lymph % (Auto) 49.0 H [place] % (Auto) 11.0 H Eos % (Auto) 1.0 Baso % (Auto) 1.0 Neut # (Auto) 2.0 Lymph # (Auto) 2.6 [place] # (Auto) 0.6 Eos # (Auto) 0.0 Baso # (Auto) 0.0 PT 10.0 INR 0.9 APTT 30 Sodium 146 Potassium 4.9 Chloride 113 H Carbon Dioxide 24 Anion Gap 14 BUN 9 Creatinine 0.8 Est GFR ( Amer) > 60 Est GFR (Non-Af Amer) > 60 Random Glucose 99 Calcium 9.0 Total Bilirubin 0.5 AST 34 ALT 11 Alkaline Phosphatase 122 Total Protein 8.0 Albumin 3.8 Globulin 4.2 H Albumin/Globulin Ratio 0.9 L Assessment & Plan - Assessment and Plan (Free Text) Assessment: Foreign Body; HTN s/p tracheostomy For bronchoscopy Cont meds
--- NOTE | 2017-10-26 10:51 | RAD ---
PROCEDURE: Radiographs of the neck (soft tissue). HISTORY: Straw lodged in tracheostomy - FB sensation COMPARISON: None. TECHNIQUE: Frontal and Lateral Radiographs of the neck, optimized for soft tissue visualization. FINDINGS: SOFT TISSUES: Tracheostomy defect at the C7-T1 level. No radiopaque foreign body seen. CERVICAL SPINE: Prior anterior cervical fixation of C3-7. OTHER FINDINGS: None. IMPRESSION: Unremarkable radiographs of the soft tissues of the neck.
--- NOTE | 2017-10-26 16:18 | CT ---
PROCEDURE: CT NECK WITHOUT CONTRAST HISTORY: states straw lodged in trach using it as suction COMPARISON: None. TECHNIQUE: CT of the neck without intravenous contrast. Coronal and sagittal reformats generated. Radiation dose: DLP 379.62 mGy-cm This CT exam was performed using one or more of the following dose reduction techniques: Automated exposure control, adjustment of the mA and/or kV according to patient size, and/or use of iterative reconstruction technique. FINDINGS: NASOPHARYNX: Unremarkable. SUPRAHYOID NECK: Unremarkable oropharynx, oral cavity, parapharyngeal space and retropharyngeal space. INFRAHYOID NECK: Unremarkable larynx, hypopharynx, and supraglottic space. Vocal cords intact. MASS: None. GLANDS: Parotid and submandibular glands unremarkable. Normal size thyroid gland, without nodule. LYMPH NODES: Normal. No lymphadenopathy. CERVICAL SPINE: No fracture or focal lesion. OTHER FINDINGS: Inferior to the right side of the patient's tracheostomy is a linear metallic foreign body oriented longitudinally, measuring 13 mm in length. Uncertain significance. No other foreign body is identified. IMPRESSION: Linear radiopaque metallic foreign body inferior to the right side of the patient's tracheostomy. No other significant abnormality. Preliminary interpretation of this examination was reported by [facility] at 6:34 a.m. on 10/26/2017. There is concurrence of this report with the preliminary interpretation.
--- NOTE | 2017-10-26 17:29 | CT ---
PROCEDURE: CT Chest without contrast HISTORY: R/O Foreign body COMPARISON: CT scan of the chest, abdomen pelvis dated 09/13/2016. TECHNIQUE: Contiguous axial images were obtained through the chest without intravenous contrast enhancement. Sagittal and coronal reconstructions were performed. Radiation dose (DLP): 275.0 mGy-cm. This CT exam was performed using one or more of the following dose reduction techniques: Automated exposure control, adjustment of the mA and/or kV according to patient size, and/or use of iterative reconstruction technique. FINDINGS: LUNGS: History right upper lobe, lower lobe, lingula and left lower lobe scarring. No focal consolidation. Nonspecific soft tissue density along the left tracheal wall above the kvng. MEDIASTINUM: Unremarkable thoracic aorta. No aneurysm. Normal sized heart. Main pulmonary artery unremarkable. No vascular congestion. No lymphadenopathy. Radiopaque density to the right is trachea redemonstrated. PLEURA: No pleural fluid. No pneumothorax. BONES: No fracture. No destructive lesion. UPPER ABDOMEN: Grossly unremarkable. OTHER FINDINGS: Tracheostomy defect. IMPRESSION: Nonspecific soft tissue density along the left tracheal wall above the kvng projecting intraluminally.
--- NOTE | 2017-10-26 17:35 | CP.PCM.CON ---
History of Present Illness - History of Present Illness History of Present Illness: CC: Foreign body in trachea HPI: 62 year old female patient with past medical history of tracheotomy, HTN and depression. Patient presented to the ED with complaint of a straw being stuck in her trachea. Patient reports that the straw got stuck as she was using it to clear a mucus plug. Patient seen and examined at the bedside. CT scan shows a 13 mm in length foreign object along the left lateral wall above kvng . ROS: Constitutional: Patient denies fever and chills. Cardiovascular: Patient denies chest pain, palpitations Respiratory: Patient denies shortness of breath and cough. Gastrointestinal: Patient denies nausea, vomiting, diarrhea. PMHx: Tracheotomy and HTN Medications: Amlodipine Besylate -10 mg PO daily Heparin Sodium - 5000 units SC BID Hydrochlorothiazide (microzide) - 50 mg PO daily Hydrochlorothiazide (Hydridiuril) - 25mg PO daily Risperidone - 3 mg PO daily Sertraline Hcl - 50 mg PO Daily Sodium Chloride - 1000 mls @100 mls/ hr IV . Q10H Sumatriptan Succinate - 50 mg PO Daily Topiramate- 50 mg PO Daily Trazodone Hcl - 100 mg PO HS Zolpidem Tartrate - 5mg PO HS PRN Physical Exam HEENT: Atraumatic, normocephalic, mucuous membranes moist, EOMI Repiratory: Clear to auscultation bilaterally, no rales, wheezing, rhonchi. No use of accessory muscles. Cardiovascular: +S1/ S2, regular rate and rhythm GI: Normal bowel sounds in all 4 quadrants, no tenderness, no distention Extremities: No LE edema. Neurological: Alert, awake, oriented X3 Assessment: 62 year old female patient with past medical history of tracheotomy and HTN. Patient with foreign body in trachea. 1. Foreign Body in Trachea Status: Acute -currently patient has a size 6 tracheostomy that needs to be changed for bronchoscopy and removal of foreign body 2. HTN Status: Chronic -Amlodipine Besylate -10 mg PO daily -Hydrochlorothiazide (microzide) - 50 mg PO daily - Hydrochlorothiazide (Hydridiuril) - 25mg PO daily 3. Depression Status: Chronic - Risperidone - 3 mg PO daily - Sertraline Hcl - 50 mg PO Daily Past Patient History - Past Medical History & Family History Past Medical History?: Yes - Past Social History Smoking Status: Heavy Smoker > 10 Cigarettes Daily - CARDIAC Hx Hypertension: Yes - PULMONARY Hx Asthma: Yes - NEUROLOGICAL Hx Seizures: No - HEMATOLOGICAL/ONCOLOGICAL Hx Anemia: (chronic. Familial) - MUSCULOSKELETAL/RHEUMATOLOGICAL Hx Falls: No - GASTROINTESTINAL Hx Diverticulitis: Yes Hx Gastritis: Yes - GENITOURINARY/GYNECOLOGICAL Hx Sexually Transmitted Disorders: No - PSYCHIATRIC Hx Depression: Yes Hx Substance Use: No - SURGICAL HISTORY Hx Surgeries: Yes Hx Breast Biopsy: Yes Hx Herniorrhaphy: Yes (abdominal x 4) Hx Hysterectomy: Yes Other/Comment: tracheostomy, cervical spine fusion. - ANESTHESIA Hx Anesthesia: Yes Hx Anesthesia Reactions: No Meds Allergies/Adverse Reactions: Allergies Allergy/AdvReac Type Severity Reaction Status Date / Time codeine Allergy RASH Verified 10/26/17 00:37 ibuprofen Allergy RASH Verified 10/26/17 00:37 Penicillins Allergy RASH Verified 10/26/17 00:37 tramadol Allergy RASH Verified 10/26/17 00:37 - Medications Medications: Current Medications Amlodipine Besylate (Norvasc) 10 mg PO DAILY [facility] Heparin Sodium (Porcine) (Heparin) 5,000 units SC BID [facility] Hydrochlorothiazide (Microzide) 50 mg PO DAILY [facility] Hydrochlorothiazide (Hydrodiuril) 25 mg PO DAILY [facility] Sodium Chloride (Sodium Chloride 0.9%) 1,000 mls @ 100 mls/hr IV .Q10H ONE Stop: 10/26/17 18:00 Risperidone (Risperdal Tab) 3 mg PO DAILY [facility] Sertraline HCl (Zoloft) 50 mg PO DAILY [facility] Sumatriptan Succinate (Imitrex Tab) 50 mg PO DAILY [facility] Stop: 10/27/17 10:01 Topiramate (Topamax) 50 mg PO DAILY [facility] Trazodone HCl (Desyrel) 100 mg PO HS [facility] Zolpidem Tartrate (Ambien) 5 mg PO HS PRN PRN Reason: Insomnia Results - Vital Signs Recent Vital Signs: Last Vital Signs Temp 98.1 F 10/26/17 16:00 Pulse 82 10/26/17 16:00 Resp 20 10/26/17 16:00 BP 128/91 H 10/26/17 16:00 Pulse Ox 96 10/26/17 16:00 - Labs Result Diagrams: 10/26/17 08:43 07/03/18 08:43 Labs: Laboratory Results - last 24 hr 10/26/17 10/26/17 10/26/17 08:43 08:43 08:43 WBC 5.2 RBC 4.35 Hgb 9.8 L Hct 31.5 L MCV 72.4 L D MCH 22.6 L MCHC 31.2 L RDW 22.7 H Plt Count 418 H MPV 7.1 L Neut % (Auto) 38.0 L Lymph % (Auto) 49.0 H [place] % (Auto) 11.0 H Eos % (Auto) 1.0 Baso % (Auto) 1.0 Neut # (Auto) 2.0 Lymph # (Auto) 2.6 [place] # (Auto) 0.6 Eos # (Auto) 0.0 Baso # (Auto) 0.0 PT 10.0 INR 0.9 APTT 30 Sodium 146 Potassium 4.9 Chloride 113 H Carbon Dioxide 24 Anion Gap 14 BUN 9 Creatinine 0.8 Est GFR ( Amer) > 60 Est GFR (Non-Af Amer) > 60 Random Glucose 99 Calcium 9.0 Total Bilirubin 0.5 AST 34 ALT 11 Alkaline Phosphatase 122 Total Protein 8.0 Albumin 3.8 Globulin 4.2 H Albumin/Globulin Ratio 0.9 L
[2017-10-26] MEDS: Oxycodone/Acetaminophen 5/325 mg Tab PO PRN (21:48)
[2017-10-27] MEDS: Oxycodone/Acetaminophen 5/325 mg Tab PO PRN ×4 (05:31→23:55)
[2017-10-27] MEDS: Metoprolol Succinate 50 mg XL Tab PO SCH (09:00)
[2017-10-27] MEDS: Multiple Vitamins Tab PO SCH (09:39)
[2017-10-27] MEDS: Pantoprazole 40 mg Susp UD PO SCH (09:40)
--- NOTE | 2017-10-27 16:33 | CP.PCM.PN ---
Subjective - Date & Time of Evaluation Date of Evaluation: 10/27/17 Time of Evaluation: 11:00 - Subjective Subjective: patient seen and examined Denies shortness of breath and cough Patient able to remove her tracheostomy and reinsert it afebrile Objective - Vital Signs/Intake and Output Vital Signs (last 24 hours): Temp Pulse Resp BP Pulse Ox 98.2 F 78 20 107/64 98 10/27/17 15:30 10/27/17 15:30 10/27/17 15:30 10/27/17 15:30 10/27/17 15:30 Intake and Output: 10/27/17 10/27/17 06:59 18:59 Intake Total 100 200 Balance 100 200 - Medications Medications: Current Medications Amlodipine Besylate (Norvasc) 10 mg PO DAILY [facility] Last Admin: 10/27/17 09:00 Dose: 10 mg Cyclobenzaprine HCl (Flexeril) 5 mg PO HS [facility] Last Admin: 10/26/17 21:43 Dose: 5 mg Escitalopram Oxalate (Lexapro) 10 mg PO DAILY [facility] Last Admin: 10/27/17 09:40 Dose: 10 mg Gabapentin (Neurontin) 800 mg PO TID [facility] Last Admin: 10/27/17 14:40 Dose: Not Given Heparin Sodium (Porcine) (Heparin) 5,000 units SC BID [facility] Last Admin: 10/27/17 09:00 Dose: 5,000 units Hydrochlorothiazide (Hydrodiuril) 25 mg PO DAILY [facility] Last Admin: 10/27/17 09:00 Dose: 25 mg Metoprolol Succinate (Toprol Xl) 50 mg PO DAILY [facility] Last Admin: 10/27/17 09:00 Dose: 50 mg Multivitamins (Hexavitamin) 1 tab PO DAILY [facility] Last Admin: 10/27/17 09:39 Dose: 1 tab Oxycodone/Acetaminophen (Percocet 5/325 Mg Tab) 1 tab PO Q6H PRN PRN Reason: Pain, moderate (4-7) Stop: 10/29/17 21:12 Last Admin: 10/27/17 11:53 Dose: 1 tab Pantoprazole Sodium (Protonix Susp) 40 mg PO DAILY [facility] Last Admin: 10/27/17 09:40 Dose: 40 mg Risperidone (Risperdal Tab) 3 mg PO DAILY [facility] Last Admin: 10/27/17 09:43 Dose: 3 mg Sertraline HCl (Zoloft) 50 mg PO DAILY [facility] Last Admin: 10/27/17 09:39 Dose: 50 mg Topiramate (Topamax) 50 mg PO DAILY [facility] Last Admin: 10/27/17 09:43 Dose: 50 mg Trazodone HCl (Desyrel) 100 mg PO HS [facility] Last Admin: 10/26/17 21:43 Dose: 100 mg Zolpidem Tartrate (Ambien) 5 mg PO HS PRN PRN Reason: Insomnia - Labs Labs: 10/26/17 08:43 10/26/17 08:43 PT 10.0 SECONDS (9.7-12.2) 10/26/17 08:43 INR 0.9 10/26/17 08:43 APTT 30 SECONDS (21-34) 10/26/17 08:43 - Head Exam Head Exam: ATRAUMATIC, NORMOCEPHALIC - Eye Exam Eye Exam: Normal appearance - ENT Exam ENT Exam: Mucous Membranes Moist - Respiratory Exam Respiratory Exam: Clear to Ausculation Bilateral - Cardiovascular Exam Cardiovascular Exam: REGULAR RHYTHM - GI/Abdominal Exam GI & Abdominal Exam: Soft, Normal Bowel Sounds Assessment and Plan (1) Foreign body in trachea Assessment & Plan: possible change of tracheostomy and bronchoscopy in a.m. Status: Acute
--- NOTE | 2017-10-28 05:57 | CP.PCM.CON ---
History of Present Illness - History of Present Illness History of Present Illness: Cardothoracic Surgery Consult Note for Dr. Lay This 62F with a PMH of tracheostomy after cervical fusion led to vocal cord paralysis in 2007, asthma, Hep C presented after she dropped a straw in her stoma. She reports that she ran out of suction catheters so she used a straw to suction her trachea when she dropped it in. She is not in any jayshree or respiratory distress however she was unable to retrieve it. She was evaluated by pulmonology who considered bronchoscopy however he reports he feels he is unable to cannulate the stoma due to its small size. PMH: See above PSH: None ALL: Codine, Ibeuprofen, Pcn, Tramadol Review of Systems - Review of Systems Review of Systems: 12 point review of symptoms negative Past Patient History - Past Medical History & Family History Past Medical History?: Yes - Past Social History Smoking Status: Heavy Smoker > 10 Cigarettes Daily - CARDIAC Hx Hypertension: Yes - PULMONARY Hx Asthma: Yes - NEUROLOGICAL Hx Seizures: No - HEMATOLOGICAL/ONCOLOGICAL Hx Anemia: (chronic. Familial) - MUSCULOSKELETAL/RHEUMATOLOGICAL Hx Falls: No - GASTROINTESTINAL Hx Diverticulitis: Yes Hx Gastritis: Yes - GENITOURINARY/GYNECOLOGICAL Hx Sexually Transmitted Disorders: No - PSYCHIATRIC Hx Depression: Yes Hx Substance Use: No - SURGICAL HISTORY Hx Surgeries: Yes Hx Breast Biopsy: Yes Hx Herniorrhaphy: Yes (abdominal x 4) Hx Hysterectomy: Yes Other/Comment: tracheostomy, cervical spine fusion. - ANESTHESIA Hx Anesthesia: Yes Hx Anesthesia Reactions: No Meds Allergies/Adverse Reactions: Allergies Allergy/AdvReac Type Severity Reaction Status Date / Time codeine Allergy RASH Verified 10/26/17 00:37 ibuprofen Allergy RASH Verified 10/26/17 00:37 Penicillins Allergy RASH Verified 10/26/17 00:37 tramadol Allergy RASH Verified 10/26/17 00:37 - Medications Medications: Current Medications Amlodipine Besylate (Norvasc) 10 mg PO DAILY [facility] Last Admin: 10/27/17 09:00 Dose: 10 mg Cyclobenzaprine HCl (Flexeril) 5 mg PO HS [facility] Last Admin: 10/27/17 21:16 Dose: Not Given Escitalopram Oxalate (Lexapro) 10 mg PO DAILY [facility] Last Admin: 10/27/17 09:40 Dose: 10 mg Gabapentin (Neurontin) 800 mg PO TID [facility] Last Admin: 10/27/17 17:56 Dose: 800 mg Heparin Sodium (Porcine) (Heparin) 5,000 units SC BID [facility] Last Admin: 10/27/17 17:57 Dose: 5,000 units Hydrochlorothiazide (Hydrodiuril) 25 mg PO DAILY [facility] Last Admin: 10/27/17 09:00 Dose: 25 mg Metoprolol Succinate (Toprol Xl) 50 mg PO DAILY [facility] Last Admin: 10/27/17 09:00 Dose: 50 mg Multivitamins (Hexavitamin) 1 tab PO DAILY [facility] Last Admin: 10/27/17 09:39 Dose: 1 tab Oxycodone/Acetaminophen (Percocet 5/325 Mg Tab) 1 tab PO Q6H PRN PRN Reason: Pain, moderate (4-7) Stop: 10/29/17 21:12 Last Admin: 10/27/17 23:55 Dose: 1 tab Pantoprazole Sodium (Protonix Susp) 40 mg PO DAILY [facility] Last Admin: 10/27/17 09:40 Dose: 40 mg Risperidone (Risperdal Tab) 3 mg PO DAILY [facility] Last Admin: 10/27/17 09:43 Dose: 3 mg Sertraline HCl (Zoloft) 50 mg PO DAILY [facility] Last Admin: 10/27/17 09:39 Dose: 50 mg Topiramate (Topamax) 50 mg PO DAILY [facility] Last Admin: 10/27/17 09:43 Dose: 50 mg Trazodone HCl (Desyrel) 100 mg PO HS [facility] Last Admin: 10/27/17 21:16 Dose: Not Given Zolpidem Tartrate (Ambien) 5 mg PO HS PRN PRN Reason: Insomnia Physical Exam - Constitutional Appears: Non-toxic, No Acute Distress - Head Exam Head Exam: NORMOCEPHALIC - Eye Exam Eye Exam: EOMI - ENT Exam ENT Exam: Mucous Membranes Moist - Neck Exam Additional comments: Tracheostomy stoma - Respiratory Exam Respiratory Exam: NORMAL BREATHING PATTERN - Cardiovascular Exam Cardiovascular Exam: REGULAR RHYTHM - GI/Abdominal Exam GI & Abdominal Exam: Soft. absent: Tenderness - Neurological Exam Neurological exam: Alert, Oriented x3 - Psychiatric Exam Psychiatric exam: Normal Affect, Normal Mood - Skin Skin Exam: Dry, Intact Results - Vital Signs Recent Vital Signs: Last Vital Signs Temp 97.9 F 10/28/17 00:00 Pulse 72 10/28/17 00:00 Resp 20 10/28/17 00:00 BP 104/70 10/28/17 00:00 Pulse Ox 98 10/28/17 04:00 - Labs Result Diagrams: 10/26/17 08:43 10/26/17 08:43 - Imaging and Cardiology CT scan - chest Status: Image reviewed by me, Report reviewed by me Assessment & Plan - Assessment and Plan (Free Text) Assessment: 62F with tracheal foreign body Spoke with Dr. Mendes who will d/c patient who is stable for outpatient followup with her surgeon in [facility]
[2017-10-28] MEDS: Oxycodone/Acetaminophen 5/325 mg Tab PO PRN ×3 (08:48→20:22)
[2017-10-28] MEDS ORDERED: Midazolam 2 MG/2 ML VIAL ONE ×2 (09:31→11:35)
[2017-10-28] MEDS: Pantoprazole 40 mg Susp UD PO SCH ×2 (10:00→14:03)
[2017-10-28] MEDS: Multiple Vitamins Tab PO SCH ×2 (10:00→14:02)
[2017-10-28] MEDS: Metoprolol Succinate 50 mg XL Tab PO SCH ×2 (10:00→14:02)
[2017-10-28] MEDS ORDERED: EPINEPHrine 1 mg/ml (1:1000) Inj ONE ×2 (10:29→11:40)
[2017-10-28] MEDS ORDERED: Lidocaine 2% MPF (5 ml) Inj ONE ×2 (10:29→11:40)
[2017-10-28] MEDS ORDERED: Sodium Chloride 0.9% 0 ML IV ONE (11:40)
--- NOTE | 2017-10-28 13:09 | RAD ---
HISTORY: s p bronchoscopy COMPARISON: 01/01/2017 FINDINGS: LUNGS: No active pulmonary disease. PLEURA: No significant pleural effusion identified, no pneumothorax apparent. CARDIOVASCULAR: Normal. OSSEOUS STRUCTURES: Cervical spinal fusion hardware present as before VISUALIZED UPPER ABDOMEN: Normal. OTHER FINDINGS: None. IMPRESSION: No active disease. No interval pathology noted
--- NOTE | 2017-10-28 16:25 | CP.PCM.PN ---
Subjective - Date & Time of Evaluation Date of Evaluation: 10/28/17 Time of Evaluation: 16:22 - Subjective Subjective: S: Feels nakul. No SOB. No chestpain. No fever. Objective - Vital Signs/Intake and Output Vital Signs (last 24 hours): Temp Pulse Resp BP Pulse Ox 97.6 F 67 14 124/71 97 10/28/17 13:15 10/28/17 13:15 10/28/17 13:15 10/28/17 13:15 10/28/17 13:15 Intake and Output: 10/28/17 10/28/17 06:59 18:59 Intake Total 400 300 Balance 400 300 - Medications Medications: Current Medications Amlodipine Besylate (Norvasc) 10 mg PO DAILY [facility] Last Admin: 10/28/17 14:02 Dose: 10 mg Cyclobenzaprine HCl (Flexeril) 5 mg PO HS [facility] Last Admin: 10/27/17 21:16 Dose: Not Given Escitalopram Oxalate (Lexapro) 10 mg PO DAILY [facility] Last Admin: 10/28/17 14:03 Dose: 10 mg Gabapentin (Neurontin) 800 mg PO TID [facility] Last Admin: 10/28/17 14:04 Dose: 800 mg Heparin Sodium (Porcine) (Heparin) 5,000 units SC BID [facility] Last Admin: 10/28/17 10:00 Dose: Not Given Hydrochlorothiazide (Hydrodiuril) 25 mg PO DAILY [facility] Last Admin: 10/28/17 14:03 Dose: 25 mg Metoprolol Succinate (Toprol Xl) 50 mg PO DAILY [facility] Last Admin: 10/28/17 14:02 Dose: 50 mg Multivitamins (Hexavitamin) 1 tab PO DAILY [facility] Last Admin: 10/28/17 14:02 Dose: 1 tab Oxycodone/Acetaminophen (Percocet 5/325 Mg Tab) 1 tab PO Q6H PRN PRN Reason: Pain, moderate (4-7) Stop: 10/29/17 21:12 Last Admin: 10/28/17 15:57 Dose: 1 tab Pantoprazole Sodium (Protonix Susp) 40 mg PO DAILY [facility] Last Admin: 10/28/17 14:03 Dose: 40 mg Risperidone (Risperdal Tab) 3 mg PO DAILY [facility] Last Admin: 10/28/17 10:00 Dose: Not Given Sertraline HCl (Zoloft) 50 mg PO DAILY [facility] Last Admin: 10/28/17 10:00 Dose: Not Given Topiramate (Topamax) 50 mg PO DAILY [facility] Last Admin: 10/28/17 14:05 Dose: 50 mg Trazodone HCl (Desyrel) 100 mg PO HS [facility] Last Admin: 10/27/17 21:16 Dose: Not Given Zolpidem Tartrate (Ambien) 5 mg PO HS PRN PRN Reason: Insomnia - Labs Labs: 10/26/17 08:43 10/26/17 08:43 PT 10.0 SECONDS (9.7-12.2) 10/26/17 08:43 INR 0.9 10/26/17 08:43 APTT 30 SECONDS (21-34) 10/26/17 08:43 - Constitutional Appears: Chronically Ill - Head Exam Head Exam: NORMAL INSPECTION - Eye Exam Eye Exam: Normal appearance - ENT Exam ENT Exam: Mucous Membranes Dry (tracheostomy site noted ) - Respiratory Exam Respiratory Exam: NORMAL BREATHING PATTERN - Cardiovascular Exam Cardiovascular Exam: REGULAR RHYTHM - GI/Abdominal Exam GI & Abdominal Exam: Soft - Rectal Exam Rectal Exam: Deferred - Extremities Exam Extremities Exam: Normal Inspection - Neurological Exam Neurological Exam: Awake Assessment and Plan (1) Foreign body in throat Status: Acute (2) Hepatitis C Status: Chronic (3) Vocal cord paralysis Status: Chronic (4) Status post tracheostomy Status: Chronic (5) Chronic pain syndrome Status: Chronic - Assessment and Plan (Free Text) Assessment: A/p: Continue medications
--- NOTE | 2017-10-28 16:38 | CP.PCM.PN ---
Subjective - Date & Time of Evaluation Date of Evaluation: 10/28/17 Time of Evaluation: 12:10 - Subjective Subjective: CC: Foreign body in trachea HPI: 62 year old female patient with past medical history of tracheotomy, HTN and depression. Patient presented to the ED with complaint of a straw being stuck in her trachea. Patient seen and examined at the bedside. Patient is in no acute distress. Patient reports to still have sensation of foreign body in the trachea. Patient denies shortness of breath or chest pain. Patient had bronchoscopy performed today with no sign of foreign body. ROS: Constitutional: Patient denies fever and chills. Cardiovascular: Patient denies chest pain, palpitations Respiratory: Patient denies shortness of breath and cough. Gastrointestinal: Patient denies nausea, vomiting, diarrhea. PMHx: Tracheotomy and HTN Medications: Amlodipine Besylate -10 mg PO daily Heparin Sodium - 5000 units SC BID Hydrochlorothiazide (microzide) - 50 mg PO daily Hydrochlorothiazide (Hydridiuril) - 25mg PO daily Risperidone - 3 mg PO daily Sertraline Hcl - 50 mg PO Daily Sodium Chloride - 1000 mls @100 mls/ hr IV . Q10H Sumatriptan Succinate - 50 mg PO Daily Topiramate- 50 mg PO Daily Trazodone Hcl - 100 mg PO HS Zolpidem Tartrate - 5mg PO HS PRN Physical Exam HEENT: Atraumatic, normocephalic, mucuous membranes moist, EOMI Repiratory: Clear to auscultation bilaterally, no rales, wheezing, rhonchi. No use of accessory muscles. Cardiovascular: +S1/ S2, regular rate and rhythm GI: Normal bowel sounds in all 4 quadrants, no tenderness, no distention Extremities: No LE edema. Neurological: Alert, awake, oriented X3 Assessment: 62 year old female patient with past medical history of tracheotomy and HTN. Bronchoscopy shows no sign of foreign body in trachea. 1. Foreign Body in Trachea Status: Acute 2. HTN Status: Chronic -Amlodipine Besylate -10 mg PO daily -Hydrochlorothiazide (microzide) - 50 mg PO daily - Hydrochlorothiazide (Hydridiuril) - 25mg PO daily 3. Depression Status: Chronic - Risperidone - 3 mg PO daily - Sertraline Hcl - 50 mg PO Daily Objective - Vital Signs/Intake and Output Vital Signs (last 24 hours): Temp Pulse Resp BP Pulse Ox 97.6 F 67 14 124/71 97 10/28/17 13:15 10/28/17 13:15 10/28/17 13:15 10/28/17 13:15 10/28/17 13:15 Intake and Output: 10/28/17 10/28/17 06:59 18:59 Intake Total 400 300 Balance 400 300 - Medications Medications: Current Medications Amlodipine Besylate (Norvasc) 10 mg PO DAILY [facility] Last Admin: 10/28/17 14:02 Dose: 10 mg Cyclobenzaprine HCl (Flexeril) 5 mg PO [facility] Last Admin: 10/27/17 21:16 Dose: Not Given Escitalopram Oxalate (Lexapro) 10 mg PO DAILY [facility] Last Admin: 10/28/17 14:03 Dose: 10 mg Gabapentin (Neurontin) 800 mg PO TID [facility] Last Admin: 10/28/17 14:04 Dose: 800 mg Heparin Sodium (Porcine) (Heparin) 5,000 units SC BID [facility] Last Admin: 10/28/17 10:00 Dose: Not Given Hydrochlorothiazide (Hydrodiuril) 25 mg PO DAILY [facility] Last Admin: 10/28/17 14:03 Dose: 25 mg Metoprolol Succinate (Toprol Xl) 50 mg PO DAILY [facility] Last Admin: 10/28/17 14:02 Dose: 50 mg Multivitamins (Hexavitamin) 1 tab PO DAILY [facility] Last Admin: 10/28/17 14:02 Dose: 1 tab Oxycodone/Acetaminophen (Percocet 5/325 Mg Tab) 2 tab PO Q6H PRN PRN Reason: Agitation Stop: 10/31/17 16:29 Pantoprazole Sodium (Protonix Susp) 40 mg PO DAILY [facility] Last Admin: 10/28/17 14:03 Dose: 40 mg Risperidone (Risperdal Tab) 3 mg PO DAILY [facility] Last Admin: 10/28/17 10:00 Dose: Not Given Sertraline HCl (Zoloft) 50 mg PO DAILY [facility] Last Admin: 10/28/17 10:00 Dose: Not Given Topiramate (Topamax) 50 mg PO DAILY [facility] Last Admin: 10/28/17 14:05 Dose: 50 mg Trazodone HCl (Desyrel) 100 mg PO [facility] Last Admin: 10/27/17 21:16 Dose: Not Given Zolpidem Tartrate (Ambien) 5 mg PO HS PRN PRN Reason: Insomnia - Labs Labs: 10/26/17 08:43 10/26/17 08:43 PT 10.0 SECONDS (9.7-12.2) 10/26/17 08:43 INR 0.9 10/26/17 08:43 APTT 30 SECONDS (21-34) 10/26/17 08:43 Assessment and Plan (1) Foreign body in trachea Status: Acute
--- NOTE | 2017-10-28 16:41 | CP.PCM.PN ---
Subjective - Date & Time of Evaluation Date of Evaluation: 10/28/17 Time of Evaluation: 16:40 - Subjective Subjective: TECHNICAL WRITER AND EDITOR REC'D PHONE CALL FROM DR. CUNNINGHAM, WHO DID BRONCH ON PT. PER DR. CUNNINGHAM THERE IS NO FB IN [facility] AND PT IS CLEARED FOR D/C HOME TODAY. I HAVE COMPLETED THE MED REC TO CONTINUE ALL HOME MEDICATIONS AND F/U WITH DR. ANTHONY IN THE OFFICE. DISCUSSED WITH D/C PAXTON ENCINAS ON [address], WHO WILL CONTACT DR. ANTHONY FOR AN OFFICIAL D/C ORDER. NO FURTHER ORDERS AT THIS TIME. Objective - Vital Signs/Intake and Output Vital Signs (last 24 hours): Temp Pulse Resp BP Pulse Ox 97.6 F 67 14 124/71 97 10/28/17 13:15 10/28/17 13:15 10/28/17 13:15 10/28/17 13:15 10/28/17 13:15 Intake and Output: 10/28/17 10/28/17 06:59 18:59 Intake Total 400 300 Balance 400 300 - Medications Medications: Current Medications Amlodipine Besylate (Norvasc) 10 mg PO DAILY [facility] Last Admin: 10/28/17 14:02 Dose: 10 mg Cyclobenzaprine HCl (Flexeril) 5 mg PO HS [facility] Last Admin: 10/27/17 21:16 Dose: Not Given Escitalopram Oxalate (Lexapro) 10 mg PO DAILY [facility] Last Admin: 10/28/17 14:03 Dose: 10 mg Gabapentin (Neurontin) 800 mg PO TID [facility] Last Admin: 10/28/17 14:04 Dose: 800 mg Heparin Sodium (Porcine) (Heparin) 5,000 units SC BID [facility] Last Admin: 10/28/17 10:00 Dose: Not Given Hydrochlorothiazide (Hydrodiuril) 25 mg PO DAILY [facility] Last Admin: 10/28/17 14:03 Dose: 25 mg Metoprolol Succinate (Toprol Xl) 50 mg PO DAILY [facility] Last Admin: 10/28/17 14:02 Dose: 50 mg Multivitamins (Hexavitamin) 1 tab PO DAILY [facility] Last Admin: 10/28/17 14:02 Dose: 1 tab Oxycodone/Acetaminophen (Percocet 5/325 Mg Tab) 2 tab PO Q6H PRN PRN Reason: Agitation Stop: 10/31/17 16:29 Pantoprazole Sodium (Protonix Susp) 40 mg PO DAILY [facility] Last Admin: 10/28/17 14:03 Dose: 40 mg Risperidone (Risperdal Tab) 3 mg PO DAILY [facility] Last Admin: 10/28/17 10:00 Dose: Not Given Sertraline HCl (Zoloft) 50 mg PO DAILY [facility] Last Admin: 10/28/17 10:00 Dose: Not Given Topiramate (Topamax) 50 mg PO DAILY [facility] Last Admin: 10/28/17 14:05 Dose: 50 mg Trazodone HCl (Desyrel) 100 mg PO HS [facility] Last Admin: 10/27/17 21:16 Dose: Not Given Zolpidem Tartrate (Ambien) 5 mg PO HS PRN PRN Reason: Insomnia - Labs Labs: 10/26/17 08:43 10/26/17 08:43 PT 10.0 SECONDS (9.7-12.2) 10/26/17 08:43 INR 0.9 10/26/17 08:43 APTT 30 SECONDS (21-34) 10/26/17 08:43
--- NOTE | 2017-10-28 21:13 | CARD ---
APPROVED REPORT EKG Measurement Heart [id number] CO [id number] <Conclusion> Normal sinus rhythm Normal ECG
[2017-10-29] MEDS: Oxycodone/Acetaminophen 5/325 mg Tab PO PRN ×4 (02:31→21:17)
--- NOTE | 2017-10-29 06:49 | OP ---
PROCEDURE DATE: 10/28/2017 PROCEDURE: Fiberoptic bronchoscopy. PREOPERATIVE DIAGNOSIS: Foreign body in the trachea. Fiberoptic bronchoscopy procedure was done. SURGEON: Raul Mendes MD DESCRIPTION OF PROCEDURE: After obtaining consent from the patient, explaining the patient risks and benefits, which she understood, the fiberoptic bronchoscope was passed through the tracheal stoma into the trachea after the patient was sedated by anesthesiologist. No foreign body noted in the trachea. Minimal amount of secretions were noted, which were suctioned out. First, the bronchoscope was passed on the right side. No foreign body seen. Later, the bronchoscope was pulled back and passed into the left side. No foreign body seen. The patient tolerated the procedure well. No complications. Raul Mendes MD
--- NOTE | 2017-10-29 08:05 | CP.PCM.PN ---
Subjective - Date & Time of Evaluation Date of Evaluation: 10/29/17 Time of Evaluation: 07:50 - Subjective Subjective: Pt swear has FB still on trachea; No CP, no SOB, (+) cough w/ mucus no n/v, no diarrhea, no palpitation Objective - Vital Signs/Intake and Output Vital Signs (last 24 hours): Temp Pulse Resp BP Pulse Ox 97.9 F 73 20 109/67 98 10/29/17 00:00 10/29/17 00:00 10/29/17 00:00 10/29/17 00:00 10/29/17 00:00 Intake and Output: 10/29/17 10/29/17 06:59 18:59 Intake Total 300 Balance 300 - Medications Medications: Current Medications Amlodipine Besylate (Norvasc) 10 mg PO DAILY [facility] Last Admin: 10/28/17 14:02 Dose: 10 mg Cyclobenzaprine HCl (Flexeril) 5 mg PO HS [facility] Last Admin: 10/28/17 21:39 Dose: 5 mg Escitalopram Oxalate (Lexapro) 10 mg PO DAILY [facility] Last Admin: 10/28/17 14:03 Dose: 10 mg Gabapentin (Neurontin) 800 mg PO TID [facility] Last Admin: 10/28/17 17:42 Dose: 800 mg Heparin Sodium (Porcine) (Heparin) 5,000 units SC BID [facility] Last Admin: 10/28/17 17:42 Dose: 5,000 units Hydrochlorothiazide (Hydrodiuril) 25 mg PO DAILY [facility] Last Admin: 10/28/17 14:03 Dose: 25 mg Metoprolol Succinate (Toprol Xl) 50 mg PO DAILY [facility] Last Admin: 10/28/17 14:02 Dose: 50 mg Multivitamins (Hexavitamin) 1 tab PO DAILY [facility] Last Admin: 10/28/17 14:02 Dose: 1 tab Oxycodone/Acetaminophen (Percocet 5/325 Mg Tab) 2 tab PO Q6H PRN PRN Reason: Agitation Stop: 10/31/17 16:29 Last Admin: 10/29/17 02:31 Dose: 2 tab Pantoprazole Sodium (Protonix Susp) 40 mg PO DAILY [facility] Last Admin: 10/28/17 14:03 Dose: 40 mg Risperidone (Risperdal Tab) 3 mg PO DAILY [facility] Last Admin: 10/28/17 10:00 Dose: Not Given Sertraline HCl (Zoloft) 50 mg PO DAILY [facility] Last Admin: 10/28/17 10:00 Dose: Not Given Topiramate (Topamax) 50 mg PO DAILY [facility] Last Admin: 10/28/17 14:05 Dose: 50 mg Trazodone HCl (Desyrel) 100 mg PO HS [facility] Last Admin: 10/28/17 21:39 Dose: 100 mg Zolpidem Tartrate (Ambien) 5 mg PO HS PRN PRN Reason: Insomnia - Labs Labs: 10/26/17 08:43 10/26/17 08:43 PT 10.0 SECONDS (9.7-12.2) 10/26/17 08:43 INR 0.9 10/26/17 08:43 APTT 30 SECONDS (21-34) 10/26/17 08:43 - Constitutional Appears: No Acute Distress - Eye Exam Eye Exam: Normal appearance - ENT Exam ENT Exam: Mucous Membranes Moist - Neck Exam Neck Exam: Full ROM. absent: Lymphadenopathy, Thyromegaly - Respiratory Exam Respiratory Exam: Clear to Ausculation Bilateral. absent: Rales, Wheezes - Cardiovascular Exam Cardiovascular Exam: REGULAR RHYTHM, +S1, +S2, Murmur. absent: Gallop, JVD - GI/Abdominal Exam GI & Abdominal Exam: Soft, Normal Bowel Sounds. absent: Tenderness - Extremities Exam Extremities Exam: Full ROM, Normal Capillary Refill. absent: Calf Tenderness, Joint Swelling Assessment and Plan - Assessment and Plan (Free Text) Assessment: Foreign Body w/ residual sensation HTN; Depression Will recall Dr Mendes ? repeat CT Cont meds
[2017-10-29] MEDS: Multiple Vitamins Tab PO SCH (10:19)
[2017-10-29] MEDS: Pantoprazole 40 mg Susp UD PO SCH (10:22)
[2017-10-29] MEDS: Metoprolol Succinate 50 mg XL Tab PO SCH (10:26)
--- NOTE | 2017-10-29 10:54 | CT ---
PROCEDURE: CT Chest without contrast HISTORY: r/o Foreign body; Patient feels straw is still the COMPARISON: CT chest from 10/26/2017 and plain radiograph from 10/28/2017. TECHNIQUE: Contiguous axial images were obtained through the chest without intravenous contrast enhancement. Sagittal and coronal reconstructions were performed. Radiation dose (DLP): 275.01 mGy-cm. This CT exam was performed using one or more of the following dose reduction techniques: Automated exposure control, adjustment of the mA and/or kV according to patient size, and/or use of iterative reconstruction technique. FINDINGS: LUNGS: The lungs are well inflated. There is multifocal linear atelectasis/ no focal consolidation. No mass or pulmonary nodules. There is minimal centrilobular and paraseptal emphysema in the upper lobes. Scarring in the lungs. There is redemonstration of trachea ostomy. There is redemonstration of curvilinear soft tissue along the left lateral tracheal wall proximal to the kvng. No evidence of intraluminal radiopaque foreign body. There is persistent radiodensity lateral to the trachea in the superior mediastinum along the posterior wall of the right subclavian artery which may represent coarse calcifications or calcified lymph nodes. MEDIASTINUM: The aorta is not dilated. The heart is normal in size. No pericardial effusion. There atherosclerotic coronary artery calcifications. No bulky mediastinal lymphadenopathy. PLEURA: No pleural fluid. No pneumothorax. There are calcifications in the left basilar pleura. BONES: No fracture. No destructive lesion. Within normal limits for the patient's age. UPPER ABDOMEN: Grossly unremarkable. OTHER FINDINGS: None. IMPRESSION: Persistent curvilinear soft tissue along the left lateral wall of the trachea proximal to the kvng which may be related to reactive/ inflammatory thickening. No evidence of intraluminal foreign body.
--- NOTE | 2017-10-29 12:36 | CP.PCM.PN ---
Subjective - Date & Time of Evaluation Date of Evaluation: 10/29/17 Time of Evaluation: 10:00 - Subjective Subjective: CC: Foreign body in trachea HPI: Patient seen and examined at the bedside. Patient is in no acute distress. Patient reports to still have sensation of foreign body in the trachea. Patient denies shortness of breath or chest pain. Patient repeat CT Scan shows no sign of foreign body in trachea. ROS: Constitutional: Patient denies fever and chills. Cardiovascular: Patient denies chest pain, palpitations Respiratory: Patient denies shortness of breath and cough. Gastrointestinal: Patient denies nausea, vomiting, diarrhea. Physical Exam HEENT: Atraumatic, normocephalic, mucuous membranes moist, EOMI Repiratory: Clear to auscultation bilaterally, no rales, wheezing, rhonchi. No use of accessory muscles. Cardiovascular: +S1/ S2, regular rate and rhythm GI: Normal bowel sounds in all 4 quadrants, no tenderness, no distention Extremities: No LE edema. Neurological: Alert, awake, oriented X3 Assessment: 62 year old female patient with past medical history of tracheotomy and HTN. Patient repeat CT Scan showed no sign of foreign body in trachea. 1. Foreign Body in Trachea Status: Acute - CT Scan shows no sign of foreign object in trachea - Patient can be discharged 2. HTN Status: Chronic -Amlodipine Besylate -10 mg PO daily -Hydrochlorothiazide (microzide) - 50 mg PO daily - Hydrochlorothiazide (Hydridiuril) - 25mg PO daily 3. Depression Status: Chronic - Risperidone - 3 mg PO daily - Sertraline Hcl - 50 mg PO Daily Objective - Vital Signs/Intake and Output Vital Signs (last 24 hours): Temp Pulse Resp BP Pulse Ox 97.9 F 73 20 109/67 98 10/29/17 00:00 10/29/17 00:00 10/29/17 00:00 10/29/17 00:00 10/29/17 00:00 Intake and Output: 10/29/17 10/29/17 06:59 18:59 Intake Total 450 Balance 450 - Medications Medications: Current Medications Amlodipine Besylate (Norvasc) 10 mg PO DAILY [facility] Last Admin: 10/29/17 10:22 Dose: 10 mg Cyclobenzaprine HCl (Flexeril) 5 mg PO [facility] Last Admin: 10/28/17 21:39 Dose: 5 mg Escitalopram Oxalate (Lexapro) 10 mg PO DAILY [facility] Last Admin: 10/29/17 10:21 Dose: Not Given Gabapentin (Neurontin) 800 mg PO TID [facility] Last Admin: 10/29/17 10:18 Dose: 800 mg Heparin Sodium (Porcine) (Heparin) 5,000 units SC BID [facility] Last Admin: 10/29/17 10:27 Dose: 5,000 units Hydrochlorothiazide (Hydrodiuril) 25 mg PO DAILY [facility] Last Admin: 10/29/17 10:19 Dose: Not Given Metoprolol Succinate (Toprol Xl) 50 mg PO DAILY [facility] Last Admin: 10/29/17 10:26 Dose: 50 mg Multivitamins (Hexavitamin) 1 tab PO DAILY [facility] Last Admin: 10/29/17 10:19 Dose: 1 tab Oxycodone/Acetaminophen (Percocet 5/325 Mg Tab) 2 tab PO Q6H PRN PRN Reason: Agitation Stop: 10/31/17 16:29 Last Admin: 10/29/17 08:32 Dose: 2 tab Pantoprazole Sodium (Protonix Susp) 40 mg PO DAILY [facility] Last Admin: 10/29/17 10:22 Dose: 40 mg Risperidone (Risperdal Tab) 3 mg PO DAILY [facility] Last Admin: 10/29/17 10:22 Dose: Not Given Sertraline HCl (Zoloft) 50 mg PO DAILY [facility] Last Admin: 10/29/17 10:22 Dose: Not Given Topiramate (Topamax) 50 mg PO DAILY [facility] Last Admin: 10/29/17 10:22 Dose: 50 mg Trazodone HCl (Desyrel) 100 mg PO HS [facility] Last Admin: 10/28/17 21:39 Dose: 100 mg Zolpidem Tartrate (Ambien) 5 mg PO HS PRN PRN Reason: Insomnia - Labs Labs: 10/26/17 08:43 10/26/17 08:43 PT 10.0 SECONDS (9.7-12.2) 10/26/17 08:43 INR 0.9 10/26/17 08:43 APTT 30 SECONDS (21-34) 10/26/17 08:43 Assessment and Plan (1) Foreign body in trachea Status: Acute
[2017-10-29 15:53] VITALS: RESP 20
[2017-10-30] MEDS: Oxycodone/Acetaminophen 5/325 mg Tab PO PRN ×2 (08:03→14:04)
[2017-10-30 08:58] VITALS: BP 112/69; PULSE 81; TEMP 98.3; O2SAT 100
[2017-10-30] MEDS: Multiple Vitamins Tab PO SCH (10:13)
[2017-10-30] MEDS: Metoprolol Succinate 50 mg XL Tab PO SCH (10:13)
[2017-10-30] MEDS: Pantoprazole 40 mg Susp UD PO SCH (10:21)
--- NOTE | 2017-10-30 16:52 | CP.PCM.PN ---
Subjective - Date & Time of Evaluation Date of Evaluation: 10/30/17 Time of Evaluation: 11:00 - Subjective Subjective: Alert, awake, no sob or chest pains. Objective - Vital Signs/Intake and Output Vital Signs (last 24 hours): Temp Pulse Resp BP Pulse Ox 98.3 F 81 20 112/69 100 10/30/17 08:00 10/30/17 08:00 10/30/17 08:00 10/30/17 08:00 10/30/17 08:00 Intake and Output: 10/30/17 10/30/17 06:59 18:59 Intake Total 400 Balance 400 - Labs Labs: 10/26/17 08:43 10/26/17 08:43 PT 10.0 SECONDS (9.7-12.2) 10/26/17 08:43 INR 0.9 10/26/17 08:43 APTT 30 SECONDS (21-34) 10/26/17 08:43 Assessment and Plan - Assessment and Plan (Free Text) Assessment: Patient is seen and examined. No respiratory distress, trach site is intact. Plan to discharge home on levaquin 500mg po daily x7 days as per DR Elizondo. Advised to follow up with PMD in 1 week
== END 2017-10-30 14:30 | disposition home or self-care (01) | DRG 76 ==
LOC: C.ER 00:02 → C.9E 08:01 → C.3T 09:41 → OBSVTOIN 10-28 16:53
PROVIDERS: ADMIT Internal Medicine; ATTEND Internal Medicine
PROC: 0BJ08ZZ Inspection of Tracheobronchial Tree, Via Natural or Artificial Opening Endoscopic (ICD-10-PCS; 2017-10-28)
PROC: 0B918ZZ Drainage of Trachea, Via Natural or Artificial Opening Endoscopic (ICD-10-PCS; principal; 2017-10-28 09:15)
DX: T17.498A Other foreign object in trachea causing other injury, initial encounter (principal); B19.20 Unspecified viral hepatitis C without hepatic coma; J38.00 Paralysis of vocal cords and larynx, unspecified; J45.909 Unspecified asthma, uncomplicated; F17.210 Nicotine dependence, cigarettes, uncomplicated; I10 Essential (primary) hypertension; G89.4 Chronic pain syndrome; F32.9 Major depressive disorder, single episode, unspecified; Z93.0 Tracheostomy status; Z98.1 Arthrodesis status; Z90.710 Acquired absence of both cervix and uterus

== ENCOUNTER 2018-08-13 23:29 | Emergency (ER) | payer MEDICAID ==
--- NOTE | 2018-08-14 00:35 | C.PDOC ---
History Of Present Illness 63 y/o female presents to ED complaining of chronic right foot and ankle pain. Patient claims she lost her narcotic pain relievers 6 days ago and wants them refilled. Also reports she lost her tracheostomy tube one week ago and wants it replaced. Patient claims she is not homeless. Time Seen by Provider: 08/14/18 00:08 Chief Complaint (Nursing): Lower Extremity Problem/Injury History Per: Patient History/Exam Limitations: no limitations Onset/Duration Of Symptoms: Days Current Symptoms Are (Timing): Still Present Past Medical History Reviewed: Historical Data, Nursing Documentation, Vital Signs Vital Signs: Last Vital Signs Temp 98.9 F 08/13/18 23:34 Pulse 105 H 08/13/18 23:34 Resp 22 08/13/18 23:34 BP 139/101 H 08/13/18 23:34 Pulse Ox 100 08/13/18 23:34 - Medical History PMH: Anemia (chronic. Familial), Arthritis, Asthma, Depression, Diverticulitis, Gastritis, HTN Denies: Diabetes, Hepatitis, HIV, Seizures, Sexually Transmitted Disease Surgical History: Back Surgery - [facility] Procedures DRAINAGE OF TRACHEA, ENDO (10/28/17) INSERTION OF INFUSION DEV INTO SUP VENA CAVA, PERC APPROACH (09/13/16) INSPECTION OF LARYNX, ENDO (09/13/16) INSPECTION OF TRACHEOBRONCHIAL TREE, ENDO (10/28/17) TRANSFUSE NONAUT RED BLOOD CELLS IN PERIPH VEIN, PERC (09/13/16) Family History: States: No Known Family Hx - Social History Hx Tobacco Use: Yes Hx Alcohol Use: Yes Hx Substance Use: No - Immunization History Hx Tetanus Toxoid Vaccination: No Hx Influenza Vaccination: No Hx Pneumococcal Vaccination: No Review Of Systems Except As Marked, All Systems Reviewed And Found Negative. Constitutional: Negative for: Fever Musculoskeletal: Positive for: Foot Pain (Right), Other (Right ankle pain) Physical Exam - Physical Exam Appears: Non-toxic, No Acute Distress, Other (disheveled) Skin: Warm, Dry Head: Atraumatic Eye(s): bilateral: Normal Inspection Oral Mucosa: Moist Throat: Other (small tracheostomy hole without a plastic tracheostomy piece) Cardiovascular: Rhythm Regular, No Murmur Respiratory: Normal Breath Sounds, No Rales, No Rhonchi, No Wheezing Extremity: No Tenderness Extremity: Bilateral: Atraumatic Neurological/Psych: Oriented x3, Normal Speech Gait: Steady ED Course And Treatment O2 Sat by Pulse Oximetry: 100 (RA) Pulse Ox Interpretation: Normal Medical Decision Making Medical Decision Making: chronic pain "lost" her bag of narcotic meds 6 days ago Trach tube "lost" Resp to replace. Disposition Doctor Will See Patient In The: Office Counseled Patient/Family Regarding: Studies Performed, Diagnosis - Disposition Referrals: Gerard Henderson MD [Medical Doctor] - Disposition: HOME/ ROUTINE Disposition Time: 00:34 Condition: GOOD Additional Instructions: seek refills of your chronic narcotic meds through your PMD or the Chronic Pain Care provider Instructions: Chronic Pain (DC), How to Care for a Tracheostomy Forms: [employer] (Guyanese) - Clinical Impression Clinical Impression: Chronic pain, Other tracheostomy complication - Scribe Statement The provider has reviewed the documentation as recorded by the Scribe Eun Schafer Provider Attestation: All medical record entries made by the Scribe were at my direction and personally dictated by me. I have reviewed the chart and agree that the record accurately reflects my personal performance of the history, physical exam, medical decision making, and the department course for this patient. I have also personally directed, reviewed, and agree with the discharge instructions and disposition.
[2018-08-14 01:09] VITALS: BP 136/96; PULSE 98; RESP 16; TEMP 98.7
[2018-08-14 03:13] VITALS: O2SAT 100
== END 2018-08-14 01:06 | disposition home or self-care (01) ==
LOC: C.ER 23:29
DX: G89.29 Other chronic pain (principal); J95.00 Unspecified tracheostomy complication